=== PATIENT | male | born 1940 | race Caucasian/White ===

== ENCOUNTER 2022-08-13 07:57 | Emergency (ER) | payer MEDICARE, BC, SELFPAY ==
[2022-08-13 08:06] VITALS: BP 135/73; PULSE 97; RESP 18; TEMP 37; O2SAT 97; BMI 28.6
[2022-08-13 08:52] VITALS: BP 134/77; PULSE 94; O2SAT 92
--- NOTE | 2022-08-13 08:56 | ED.GENADULT ---
HPI - General Adult General Chief complaint: Unspecified Complaint, Adult Stated complaint: poss heart attack,shakes, numbness in left arm Time Seen by Provider: 08/13/22 07:59 History of Present Illness HPI narrative: 81-year-old man presenting to the emergency department with concern of left arm ache which has now resolved. He last night had a diarrheal bowel movement. This morning started to feel some shakes, chilled. Apparently no fever has been measured. Thought he was going to ?get sick? this morning and went to the bathroom. He has not actually vomited. No abdominal pain. Started subsequently to have an ache in his left arm that progressed from her shoulder all the way down his forearm which is now resolved and then thought maybe he should get this checked out. Does have a cardiac history with 1 stent about 20 years ago. He also has a pacemaker placed. The other concerning thing this morning was coming up the stairs just felt unusually fatigued or short of breath. Note him to be rather congested nasopharyngeal this is on top of a nasal septum that goes in 9 different directions and ?can not breathe for sour apples?. Has apparently decided not to intervene with this with ENT. Does play [employer]. Not nauseated now. No ill exposures noted. Related Data Home Medications Medication Instructions Recorded Confirmed amlodipine 5 mg tablet mg 08/13/22 atorvastatin 20 mg tablet mg 08/13/22 ipratropium bromide 21 mcg (0.03 intranasal 08/13/22 %) nasal spray metoprolol succinate 50 mg mg PO 08/13/22 tablet,extended release 24 hr pantoprazole 40 mg tablet,delayed mg PO 08/13/22 release rivaroxaban 20 mg tablet (Xarelto) mg 08/13/22 simvastatin 20 mg tablet mg 08/13/22 valsartan 80 tab 08/13/22 mg-hydrochlorothiazide 12.5 mg tablet Allergies Allergy/AdvReac Type Severity Reaction Status Date / Time Antihistamines - Alkylamine Allergy Verified 08/13/22 08:11 Review of Systems Status of ROS: Reports: 10 or more systems reviewed and unremarkable except as noted in History and below [facility] Social History Smoking Status: Unknown if ever smoked Exam Narrative: Exam Narrative: Pleasant. NAD. Does sound congested the nasopharynx. Cranial nerves 2-12 to be intact. Moving all extremities without difficulty. Lower extremities are without edema. He is well-perfused. Breathing easily. Lungs appear to be clear. Heart is in an elevated rate but regular rhythm. Abdomen is protuberant soft. Tympanitic across the upper abdomen. Nontender/no peritoneal signs with normoactive bowel sounds. Oropharynx is a little dry. Is breathing easily. Speaking easily. Hearing aids. I am not able to reproduce pain to palpation Const: Vital Signs, click to edit/add: Vital Signs - 24 hr 08/13/22 08:06 08/13/22 08:52 08/13/22 10:00 Temperature 98.6 F Pulse Rate [Right Pulse Oximeter] 97 94 93 Respiratory Rate 18 18 Blood Pressure [Ri ght Upper Arm] 135/73 134/77 125/80 Pulse Oximetry 97 92 93 Oxygen Delivery Me thod Room Air Room Air 08/13/22 10:30 Temperature Pulse Rate [Right Pulse Oximeter] 97 Respiratory Rate 18 Blood Pressure [Ri ght Upper Arm] 137/70 Pulse Oximetry 95 Oxygen Delivery Me thod Room Air Documenting provider has reviewed patient's vital signs: yes Course Vital Signs Vital signs: Initial Vital Signs Temperature 98.6 F 08/13/22 08:06 Temperature Source Temporal Artery Scan 08/13/22 08:06 Pulse Rate 97 08/13/22 08:06 Respiratory Rate 18 08/13/22 08:06 Blood Pressure 135/73 08/13/22 08:06 Blood Pressure Mean 93 08/13/22 08:06 Blood Pressure Position Sitting 08/13/22 08:06 Pulse Oximetry 97 08/13/22 08:06 Oxygen Delivery Method 08/13/22 08:06 Vital Signs Temperature 98.6 F 08/13/22 08:06 Pulse Rate 97 08/13/22 08:06 Respiratory Rate 18 08/13/22 08:06 Blood Pressure 135/73 08/13/22 08:06 Pulse Oximetry 97 08/13/22 08:06 Oxygen Delivery Method 08/13/22 08:06 Temperature 98.6 F 08/13/22 08:06 Pulse Rate 97 08/13/22 10:30 Respiratory Rate 18 08/13/22 10:30 Blood Pressure 137/70 08/13/22 10:30 Pulse Oximetry 95 08/13/22 10:30 Oxygen Delivery Method 08/13/22 10:30 Medical Decision Making MDM Narrative Medical decision making narrative: Looks to have now vomited here in the emergency department. Will be ordered for Zofran. L normal saline. Concern certainly have cardiovascular issue though superimposed with gastrointestinal illness I think. Unclear if the shaking that he was describing was frankly rigors. Blood cultures will be obtained. Overall feels better. No recurrence of symptoms. Tolerated abril karissa. Labs are reassuring with repeated negative troponins. This was done at 2 hour beth See patient discharge information Lab Data Lab results reviewed: Yes I reviewed the patient's lab results Labs: Lab Results 08/13/22 08/13/22 08/13/22 Range/Units 08:55 09:30 09:30 WBC 9.77 (4.50-11.00) K/uL RBC 5.10 (4.30-5.90) m/uL Hgb 15.2 (13.5-17.5) gm/dL Hct 45.3 (37.0-53.0) % MCV 89 (80-100) fL MCH 30 (26-34) pg MCHC 34 (32-36) gm/dL RDW Coeff of [place] 13.2 (11.5-15.5) % Plt Count 227 (140-440) K/uL Neut % (Auto) 93.7 H (42.0-72.0) % Lymph % (Auto) 1.5 L (20-44) % [place] % (Auto) 4.0 (0.0-11.0) % Eos % (Auto) 0.6 (0.0-7.0) % Baso % (Auto) 0.1 (0.0-3.0) % Neut # (Auto) 9.20 H (1.7-7.0) K/uL Lymph # (Auto) 0.10 L (0.90-2.90) K/uL [place] # (Auto) 0.40 (0.00-0.90) K/UL Eos # (Auto) 0.06 (0.00-0.50) K/uL Baso # (Auto) 0.01 (0.00-0.30) K/uL Sodium Cancelled Potassium Cancelled Chloride Cancelled Carbon Dioxide Cancelled BUN Cancelled Creatinine Cancelled Estimated Creat Clear Cancelled Estimated GFR Cancelled Glucose Cancelled Calcium Cancelled Magnesium (1.5-2.6) mg/dL Total Bilirubin (0.1-1.5) mg/dL Direct Bilirubin (0.0-0.5) mg/dL AST (12-35) U/L ALT (4-50) U/L Alkaline Phosphatase (40-150) U/L Troponin I (0.01-0.04) ng/mL C-Reactive Protein NT-Pro-B Natriuret Pep pg/mL Total Protein (6.0-8.3) g/dL Albumin (3.3-5.0) g/dL Urine Color (Yellow) Urine Appearance (Clear) Urine pH (5.0-8.5) Ur Specific [place] (1.000-1.030) Urine Protein (Negative) Urine Glucose (UA) (Negative) Urine Ketones (Negative) Urine Blood (Negative) Urine Nitrite (Negative) Urine Bilirubin (Negative) Urine Urobilinogen (0.2-1.0) Ur Leukocyte Esterase (Negative) Urine RBC (0-2) Urine WBC (0-5) Ur Squamous Epith Cells (None-Few) Urine Bacteria (None) SARS-CoV-2 (PCR) (Negative) Influenza Type A (PCR) (Negative) Influenza Type B (PCR) (Negative) RSV (PCR) (Negative) POC Troponin I 0.01 (0.01-0.04) ng/ml 08/13/22 08/13/22 08/13/22 Range/Units 09:30 09:30 09:30 WBC (4.50-11.00) K/uL RBC (4.30-5.90) m/uL Hgb (13.5-17.5) gm/dL Hct (37.0-53.0) % MCV (80-100) fL MCH (26-34) pg MCHC (32-36) gm/dL RDW Coeff of [place] (11.5-15.5) % Plt Count (140-440) K/uL Neut % (Auto) (42.0-72.0) % Lymph % (Auto) (20-44) % [place] % (Auto) (0.0-11.0) % Eos % (Auto) (0.0-7.0) % Baso % (Auto) (0.0-3.0) % Neut # (Auto) (1.7-7.0) K/uL Lymph # (Auto) (0.90-2.90) K/uL [place] # (Auto) (0.00-0.90) K/UL Eos # (Auto) (0.00-0.50) K/uL Baso # (Auto) (0.00-0.30) K/uL Sodium 137 Potassium 3.9 Chloride 106 Carbon Dioxide 28 BUN 24 Creatinine 0.8 Estimated Creat Clear 63.59 Estimated GFR 89 Glucose 143 H Calcium 8.7 Magnesium 1.7 (1.5-2.6) mg/dL Total Bilirubin 1.0 (0.1-1.5) mg/dL Direct Bilirubin 0.1 (0.0-0.5) mg/dL AST 33 (12-35) U/L ALT 30 (4-50) U/L Alkaline Phosphatase 112 (40-150) U/L Troponin I < 0.01 L (0.01-0.04) ng/mL C-Reactive Protein Cancelled 0.8 NT-Pro-B Natriuret Pep 758 pg/mL Total Protein 6.6 (6.0-8.3) g/dL Albumin 4.0 (3.3-5.0) g/dL Urine Color (Yellow) Urine Appearance (Clear) Urine pH (5.0-8.5) Ur Specific [place] (1.000-1.030) Urine Protein (Negative) Urine Glucose (UA) (Negative) Urine Ketones (Negative) Urine Blood (Negative) Urine Nitrite (Negative) Urine Bilirubin (Negative) Urine Urobilinogen (0.2-1.0) Ur Leukocyte Esterase (Negative) Urine RBC (0-2) Urine WBC (0-5) Ur Squamous Epith Cells (None-Few) Urine Bacteria (None) SARS-CoV-2 (PCR) Negative SARS-CoV-2 (Negative) Influenza Type A (PCR) Negative PCR FLU A (Negative) Influenza Type B (PCR) Negative PCR FLU B (Negative) RSV (PCR) Negative PCR RSV (Negative) POC Troponin I (0.01-0.04) ng/ml 08/13/22 08/13/22 Range/Units 10:51 11:01 WBC (4.50-11.00) K/uL RBC (4.30-5.90) m/uL Hgb (13.5-17.5) gm/dL Hct (37.0-53.0) % MCV (80-100) fL MCH (26-34) pg MCHC (32-36) gm/dL RDW Coeff of [place] (11.5-15.5) % Plt Count (140-440) K/uL Neut % (Auto) (42.0-72.0) % Lymph % (Auto) (20-44) % [place] % (Auto) (0.0-11.0) % Eos % (Auto) (0.0-7.0) % Baso % (Auto) (0.0-3.0) % Neut # (Auto) (1.7-7.0) K/uL Lymph # (Auto) (0.90-2.90) K/uL [place] # (Auto) (0.00-0.90) K/UL Eos # (Auto) (0.00-0.50) K/uL Baso # (Auto) (0.00-0.30) K/uL Sodium Potassium Chloride Carbon Dioxide BUN Creatinine Estimated Creat Clear Estimated GFR Glucose Calcium Magnesium (1.5-2.6) mg/dL Total Bilirubin (0.1-1.5) mg/dL Direct Bilirubin (0.0-0.5) mg/dL AST (12-35) U/L ALT (4-50) U/L Alkaline Phosphatase (40-150) U/L Troponin I (0.01-0.04) ng/mL C-Reactive Protein NT-Pro-B Natriuret Pep pg/mL Total Protein (6.0-8.3) g/dL Albumin (3.3-5.0) g/dL Urine Color Yellow (Yellow) Urine Appearance Clear (Clear) Urine pH 6.5 (5.0-8.5) Ur Specific [place] 1.020 (1.000-1.030) Urine Protein Negative (Negative) Urine Glucose (UA) Negative (Negative) Urine Ketones Negative (Negative) Urine Blood Negative (Negative) Urine Nitrite Negative (Negative) Urine Bilirubin Negative (Negative) Urine Urobilinogen 0.2 (0.2-1.0) Ur Leukocyte Esterase Negative (Negative) Urine RBC 0-2 (0-2) Urine WBC 0-2 (0-5) Ur Squamous Epith Cells None (None-Few) Urine Bacteria None (None) SARS-CoV-2 (PCR) (Negative) Influenza Type A (PCR) (Negative) Influenza Type B (PCR) (Negative) RSV (PCR) (Negative) POC Troponin I 0.01 (0.01-0.04) ng/ml ECG Data Attestation: I personally reviewed and interpreted this ECG as follows: (Ventricular paced rhythm) Discharge Plan Discharge Clinical Impression: Arm pain, Contusion of hip, Gastroenteritis Patient Disposition: Home w/ Parent or Adult Condition: Improved Additional Instructions: Focus on hydration. Slow advance of diet over the next 24-36 hours. Diluted juices, soup broths, abril karissa per your preference, advancing to thicker soups. Rice. [place]. Crackers. Maybe even smoothies? Return for marked increase in abdominal pain, intractable vomiting or diarrhea, persistent chest pain, worsening shortness of breath. As long as no blood in stool or fever you might take loperamide for diarrhea if necessary. Otherwise Zofran from [facility] for nausea/vomiting. Follow-up with cardiology in a week as planned. Prescriptions: No Action atorvastatin 20 mg tablet metoprolol succinate 50 mg tablet extended release 24 hr PO amlodipine 5 mg tablet valsartan-hydrochlorothiazide 80-12.5 mg tablet Label Comments: TAKE 1 TABLET BY MOUTH EVERY DAY pantoprazole 40 mg tablet,delayed release (DR/EC) PO simvastatin 20 mg tablet Label Comments: TAKE 1 TABLET BY MOUTH AT BEDTIME ipratropium bromide 21 mcg (0.03 %) spray,non-aerosol INTRANASAL Xarelto 20 mg tablet Follow Up/Referrals: Fabiola Rendon PA [Primary Care Provider] - Stand Alone Forms: [facility] Info Instructions
[2022-08-13] MEDS: 0.9 % SODIUM CHLORIDE 1000 ml 1,000 ML IV (09:54)
[2022-08-13 09:55] LABS: Troponin, Point-of-Care* 0.01 ng/ml (0.01-0.04)
[2022-08-13 09:56] LABS: Basophils Absolute Auto 0.01 K/uL (0.00-0.30); Basophils Percent Auto 0.1 % (0.0-3.0); Eosinophils Absolute Auto 0.06 K/uL (0.00-0.50); Eosinophils Percent Auto 0.6 % (0.0-7.0); Hematocrit 45.3 % (37.0-53.0); Hemoglobin* 15.2 gm/dL (13.5-17.5); Immature Granulocytes Abs Auto 0.01 K/uL (0.00-0.30); Immature Granulocytes Pct Auto 0.1 %; Lymphocytes Percent Auto 1.5 % (20-44); Mean Corpuscular HGB Conc 34 gm/dL (32-36); Mean Corpuscular Hemoglobin 30 pg (26-34); Mean Corpuscular Volume 89 fL (80-100); Neutrophils Percent Auto 93.7 % (42.0-72.0); Platelet Count* 227 K/uL (140-440); RDW Coefficient of Variation % 13.2 % (11.5-15.5); White Blood Count* 9.77 K/uL (4.50-11.00)
--- NOTE | 2022-08-13 09:57 | ED.NURSE ---
vomited large amout of clear yellow fluid. states feels improved after vomiting
[2022-08-13 10:00] VITALS: BP 125/80; PULSE 93; RESP 18; O2SAT 93
[2022-08-13 10:00] LABS: Slide Review Reflex No
[2022-08-13 10:14] LABS: Chloride* 106 mmol/L (96-114); Sodium* 137 mmol/L (135-149)
[2022-08-13 10:15] LABS: Potassium* 3.9 mmol/L (3.6-5.1)
[2022-08-13 10:17] LABS: Aspartate Amino Transferase* 33 U/L (12-35); Bilirubin Direct* 0.1 mg/dL (0.0-0.5); Carbon Dioxide* 28 mmol/L (20-32); Creatinine* 0.8 mg/dL (0.5-1.5); Est. Creatinine Clearance* 63.59; Estimated Glomerular Filt Rate 89 ml/min; Total Protein* 6.6 g/dL (6.0-8.3)
[2022-08-13 10:18] LABS: Alanine Aminotransferase* 30 U/L (4-50); Alkaline Phosphatase* 112 U/L (40-150); Blood Urea Nitrogen* 24 mg/dL (7-30); Calcium* 8.7 mg/dL (8.4-10.6); Glucose* 143 mg/dL (60-115); Magnesium* 1.7 mg/dL (1.5-2.6)
[2022-08-13 10:20] LABS: C Reactive Protein* 0.8 mg/dL (0.5-1.0)
[2022-08-13 10:30] VITALS: BP 137/70; PULSE 97; RESP 18; O2SAT 95
[2022-08-13 10:31] LABS: NT Pro B Type NatriureticPept* 758 pg/mL; Troponin I* < 0.01 ng/mL (0.01-0.04)
[2022-08-13 10:39] LABS: PCR FLU A Negative PCR FLU A (Negative); PCR FLU B Negative PCR FLU B (Negative); PCR RSV Negative PCR RSV (Negative)
[2022-08-13 10:48] LABS: SARS PCR* Negative SARS-CoV-2 (Negative)
[2022-08-13 10:57] LABS: Appearance Urine Clear (Clear); Bilirubin Urine Negative (Negative); Blood Urine Negative (Negative); Color Urine Yellow (Yellow); Glucose Urine Negative (Negative); Ketones Urine Negative (Negative); Leukocyte Esterase Urine Negative (Negative); Nitrite Urine Negative (Negative); Protein Urine Negative (Negative); Urobilinogen Urine 0.2 (0.2-1.0); pH Urine 6.5 (5.0-8.5)
[2022-08-13 11:11] LABS: RBC Urine 0-2 (0-2)
[2022-08-13 11:12] LABS: WBC Urine 0-2 (0-5)
[2022-08-13 11:54] LABS: Troponin, Point-of-Care* 0.01 ng/ml (0.01-0.04)
== END 2022-08-13 12:30 | disposition home or self-care (01) ==
PROVIDERS: Emergency Provider Family Medicine; PCP Physician Assistant
DX: M79.602 Pain in left arm (principal); K52.9 Noninfective gastroenteritis and colitis, unspecified
CPT/HCPCS: 36415; 80048; 80076; 81001; 83735; 83880; 84484; 85025; 86140; 87040; 87502; 87634; 87635; 93005; 99283; 99284; J7030

== ENCOUNTER 2023-03-18 14:00 | Outpatient (RCR) | payer MEDICARE, BC, SELFPAY | END 2023-03-30 11:09 | disposition home or self-care (01) | PROVIDERS: PCP Physician Assistant; Visit Provider Family Medicine | DX: M54.42 Lumbago with sciatica, left side (principal); Z51.89 Encounter for other specified aftercare | CPT/HCPCS: 97110; 97140; 97161 ==

== ENCOUNTER 2024-04-23 20:03 | Emergency (ER) | payer MEDICARE, BC, SELFPAY ==
[2024-04-23 20:13] VITALS: BP 169/91; PULSE 86; RESP 18; TEMP 36.5; O2SAT 97; BMI 29.3
[2024-04-23 20:22] VITALS: BP 164/88
--- NOTE | 2024-04-23 20:52 | ED.CHESTPAIN ---
HPI - Chest Pain General Chief Complaint: Chest Pain Stated Complaint: chest pain, SOB Time Seen by Provider: 04/23/24 20:20 History of Present Illness HPI narrative: This 83-year-old male comes in reporting some episodes of chest discomfort that he states is rather mild. He states that it happens randomly sometimes at rest and sometimes while he is out walking. He does not report any lightheadedness, nausea, vomiting, or diaphoresis. He does reports some feeling of shortness of breath with exertion. He does have a pacemaker and has a remote history of a stent placed. He states that his is currently at the [facility] because of cancer and has some increased stress + increased ambulating because of the size of that facility. He does not report reproducible chest pain with taking a deep breath or pressing in a certain area. Also his activity level or exertional level is not consistently reproducing chest symptoms. Related Data Home Medications ?Medication ?Instructions ?Recorded ?Confirmed amlodipine 5 mg tablet mg 08/13/22 11/30/23 atorvastatin 20 mg tablet mg 08/13/22 11/30/23 ipratropium bromide 21 mcg (0.03 intranasal 08/13/22 11/30/23 %) nasal spray metoprolol succinate 50 mg mg PO 08/13/22 11/30/23 tablet,extended release 24 hr pantoprazole 40 mg tablet,delayed mg PO 08/13/22 11/30/23 release rivaroxaban 20 mg tablet (Xarelto) mg 08/13/22 11/30/23 simvastatin 20 mg tablet mg 08/13/22 11/30/23 valsartan 80 tab 08/13/22 11/30/23 mg-hydrochlorothiazide 12.5 mg tablet silodosin 8 mg capsule 8 mg PO DAILY 11/30/23 11/30/23 Allergies Allergy/AdvReac Type Severity Reaction Status Date / Time Antihistamines - Alkylamine Allergy Verified 11/30/23 18:48 Review of Systems Status of ROS Reports: 10 or more systems reviewed and unremarkable except as noted in History and below Narrative Constitutional: No fevers, no weight gain or loss. Eyes: No discharge. No vision changes. HENT: No congestion, no sore throat, no ear pain. Cardiovascular: No palpitations. Respiratory: No wheezes, no cough. Gastrointestinal: No abdominal pain, no vomiting, no diarrhea. Genitourinary: No dysuria, no hematuria. Musculoskeletal: Normal range of motion. Skin: No rashes, no pruritis. Neurological: No dizziness, weakness, sensory change, speech change. Endo/Heme/Allergies: No bruising or bleeding. No polydipsia. Pysch: no suicidality, no anxiety, no insomnia. All other systems reviewed and are negative. [facility] Social History Smoking Status: Unknown if ever smoked Non-prescribed substance use: denies use Exam Narrative Exam Narrative: Constitutional: Well-developed, well-nourished, no acute distress. HEENT: Normocephalic, atraumatic. Neck: Normal range of motion. Nontender. Supple. Heart: Regular. No murmurs. Normal rate. Intact distal pulses. Lungs: Clear to auscultation. No chest discomfort. No wheezes, rhonchi, or rales. Abdomen: Normal bowel sounds. Nontender. No rebound tenderness. Genitalia: Deferred. Back: No midline tenderness. Normal range of motion. Extremities: Normal range of motion. No injury. Skin: Intact. No rash. Warm. No erythema or pallor. Neurologic: No altered sensation. No weakness. Alert and oriented. Psychiatric: No suicidality. No anxiety or depression. No insomnia. Nursing notes and vitals signs are reviewed. Const Vital Signs, click to edit/add: Vital Signs - 24 hr 04/23/24 20:13 Temperature 97.7 F Pulse Rate [Pulse Oximeter] 86 Respiratory Rate 18 Blood Pressure [Right Upper Arm] 169/91 H Pulse Oximetry 97 Oxygen Delivery Method Room Air Course Vital Signs Vital signs: Initial Vital Signs Temperature 97.7 F 04/23/24 20:13 Temperature Source Temporal Artery Scan 04/23/24 20:13 Pulse Rate 86 04/23/24 20:13 Pulse Rhythm Regular 04/23/24 20:13 Respiratory Rate 18 04/23/24 20:13 Blood Pressure 169/91 H 04/23/24 20:13 Blood Pressure Mean 117 H 04/23/24 20:13 Blood Pressure Position Sitting 04/23/24 20:13 Pulse Oximetry 97 04/23/24 20:13 Oxygen Delivery Method Room Air 04/23/24 20:13 Vital Signs Temperature 97.7 F 04/23/24 20:13 Pulse Rate 86 04/23/24 20:13 Respiratory Rate 18 04/23/24 20:13 Blood Pressure 169/91 H 04/23/24 20:13 Pulse Oximetry 97 04/23/24 20:13 Oxygen Delivery Method Room Air 04/23/24 20:13 Temperature 97.7 F 04/23/24 20:13 Pulse Rate 86 04/23/24 20:13 Respiratory Rate 18 04/23/24 20:13 Blood Pressure 169/91 H 04/23/24 20:13 Pulse Oximetry 97 04/23/24 20:13 Oxygen Delivery Method Room Air 04/23/24 20:13 MDM - Chest Pain MDM Narrative Medical decision making narrative: This 83-year-old male comes in reporting some randomly occurring mild symptoms of chest discomfort and some shortness of breath. He states that he is able to ambulate regularly about a mi with his dog and does not typically have symptoms. He arrives here with normal vital signs and has normal EKG with a paced rhythm. Labs are acquired and these returned with reassuring results. In particular his troponin is in normal range. This patient's symptoms are not suspicious for a cardiac etiology. He was reassured with these results and feels okay to return home to continue his current plans. Lab Data Labs: Lab Results 04/23/24 04/23/24 Range/Units 20:52 21:00 WBC 6.22 (4.50-11.00) K/uL RBC 4.74 (4.30-5.90) m/uL Hgb 14.2 (13.5-17.5) gm/dL Hct 42.1 (37.0-53.0) % MCV 89 (80-100) fL MCH 30 (26-34) pg MCHC 34 (32-36) gm/dL RDW Coeff of [place] 12.8 (11.5-15.5) % Plt Count 171 (140-440) K/uL Neut % (Auto) 70.0 (42.0-72.0) % Lymph % (Auto) 17.4 L (20-44) % [place] % (Auto) 9.3 (0.0-11.0) % Eos % (Auto) 2.3 (0.0-7.0) % Baso % (Auto) 0.8 (0.0-3.0) % Neut # (Auto) 4.36 (1.7-7.0) K/uL Lymph # (Auto) 1.10 (0.90-2.90) K/uL [place] # (Auto) 0.60 (0.00-0.90) K/UL Eos # (Auto) 0.14 (0.00-0.50) K/uL Baso # (Auto) 0.05 (0.00-0.30) K/uL Abs Immat Gran (auto) 0.01 (0.00-0.30) K/uL Imm/Tot Granulo (auto) 0.2 % Sodium 135 (135-149) mmol/L Potassium 3.7 (3.6-5.1) mmol/L Chloride 102 (96-114) mmol/L Carbon Dioxide 25 (20-32) mmol/L Anion Gap 8 (7-15) mEq/L BUN 24 (7-30) mg/dL Creatinine 0.8 (0.5-1.5) mg/dL Estimated Creat Clear 59.61 Estimated GFR 88 ml/min Glucose 171 H (60-115) mg/dL Calcium 8.9 (8.4-10.6) mg/dL POC Troponin I 0.02 (0.01-0.04) ng/ml ECG Data Attestation: I personally reviewed and interpreted this ECG as follows: Interpretation: Paced rhythm. Rate is 80 beats per minute. There are no specific ST or T-wave abnormalities. Discharge Plan Discharge Clinical Impression: Atypical chest pain Additional Instructions: Continue current plans. Follow up with MD return if symptoms are persistent or worsening. Consider stress testing also. Prescriptions: No Action silodosin 8 mg capsule 8 mg PO DAILY atorvastatin 20 mg tablet metoprolol succinate 50 mg tablet extended release 24 hr PO amlodipine 5 mg tablet valsartan-hydrochlorothiazide 80-12.5 mg tablet Patient Comments: TAKE 1 TABLET BY MOUTH EVERY DAY pantoprazole 40 mg tablet,delayed release (DR/EC) PO simvastatin 20 mg tablet Patient Comments: TAKE 1 TABLET BY MOUTH AT BEDTIME ipratropium bromide 21 mcg (0.03 %) spray,non-aerosol INTRANASAL Xarelto 20 mg tablet Follow Up/Referrals: Fabiola Rendon PA [Referring] - Stand Alone Forms: [facility] Info Instructions
--- OUTSIDE RECORDS SUMMARY | 2024-04-23 21:00 | XMS_ITS | Clinical Summary ---
Author Organization [employer] [facility] Address [place], [place] [address] Care Team Providers Care Custodial Worker Name Role Phone Nasra, Yael Hartmann DO Primary Care Provider [phone] Allergies Active Allergy Reactions Criticality Noted Date Comments Dexbrompheniramine-Pseudoeph ed Sleep Disturbances 08/23/2017 Antihistamines - Alkylamine *Unknown 08/14/19 23 Dust Mites Other - Describe In Comment Field 08/30/2017 Pollen Extracts Runny Nose 11/01/2017 Medications Medication Sig Dispensed Refills Start Date End Date Status multivitamin (MVI) tablet Take 1 tablet by mouth once daily. 0 08/23/2017 Active fluticasone (50 mcg per actuation) nasal solution (FLONASE) Inhale 1 Hines in the nostril(s) once daily. 1 Bottle 03/13/2018 Active cod liver oil cap Take 1 capsule by mouth once daily. Active cyanocobalamin (VITAMIN B12) 500 mcg tablet Take 500 mcg by mouth once daily. Active ipratropium (ATROVENT NASAL) 21 mcg (0.03 %) nasal sprayIndications: Rhinorrhea Inhale 1 Hines into affected nostril(s) two times daily. 30 mL 11 10/12/2022 Active aspirin (ECOTRIN) 81 mg enteric coated tablet Take 81 mg by mouth once daily with a meal. Active nitroglycerin (NITROSTAT) 0.4 mg sublingual tabletIndications :ALANIZ (dyspnea on exertion) Place 1 Tablet (0.4 mg) under the tongue every 5 minutes if needed for Chest Pain (If requiring a 3rd tab, please call 911). 25 Tablet 1 08/02/2023 Active finasteride (PROSCAR) 5 mg tablet Take 5 mg by mouth once daily in the morning. 10/06/2023 Active amLODIPine (NORVASC) 5 mg tabletIndications :HTN (hypertension) Take 1 Tablet (5 mg) by mouth once daily. 90 Tablet 3 11/03/2023 Active albuterol HFA (PRO-AIR; VENTOLIN; PROVENTIL) 90 mcg/actuation inhalerIndication s:Bronchospasm Inhale 2 Puffs by mouth every 6 hours if needed for Shortness Of Breath. 18 g 1 11/03/2023 Active valsartan-hydroch lorothiazide, 80-12.5 mg, (DIOVAN HCT) 80-12.5 mg tabletIndications :HTN (hypertension) Take 1 Tablet by mouth once daily. 90 Tablet 2 12/05/2023 Active ipratropium (ATROVENT NASAL) 42 mcg (0.06 %) nasal sprayIndications: Pollen allergy,PND (post-nasal drip) Inhale 2 Sprays into affected nostril(s) three times daily. 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 90 Tablet 3 01/25/2024 Active silodosin (RAPAFLO) 8 mg cap capsule Take 8 mg by mouth once daily. 01/29/2024 Active esomeprazole (NEXIUM) 40 mg capsuleIndication s:Chronic GERD Take 1 Capsule (40 mg) by mouth once daily before a meal. 90 Capsule 02/09/2024 Active pantoprazole (PROTONIX) 40 mg delayed-release tabletIndications :Chronic GERD Take 1 Tablet (40 mg) by mouth once daily. 90 Tablet 3 02/22/2024 Active metoprolol succinate (TOPROL XL) 50 mg sustained-release tabletIndications :Hypertension,Cor onary artery disease, unspecified vessel or lesion type, unspecified whether angina present, unspecified whether tuscarora or transplanted heart Take 1 Tablet (50 mg) by mouth once daily. Reminder: You are due for your annual Cardiology appointment in July 2024. Please call [facility] two months prior at [phone] to schedule. 90 Tablet 1 04/02/2024 Active metoprolol succinate (TOPROL XL) 50 mg sustained-release tabletIndications :Hypertension,Cor onary artery disease, unspecified vessel or lesion type, unspecified whether angina present, unspecified whether tuscarora or transplanted heart Take 1 Tablet (50 mg) by mouth once daily. 90 Tablet 3 10/02/2023 04/02/20 24 Discontinued Active Problems Patient Care Coordination No te Formatting of this note migh t be different from the original. HF/Structural/Prevention Research Eligibility Review Date: 07/30/19 Upcoming Visit Location: Outreach Age: 78 y.o. 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 09/07/2023 ALANIZ (dyspnea on exertion) 04/13/2022 Chronic obstructive pulmonary disease 09/18/2021 Paroxysmal atrial fibrillation 03/17/2021 Cardiac pacemaker 09/05/2020 HTN (hypertension) 09/05/2020 Acute external jugular vein thrombosis 9 Second degree AV block, Mobitz type II 9 Coronary artery disease involving tuscarora coronar y artery 09/05/2018 Intermittent second degree atrioventricular bloc k 09/05/2018 Resolved Problems Problem Noted Date Diagnosed Date Resolved Date Type 2 diabetes mellitus wit hout complication, without long-term current use of insulin 09/18/2021 09/18/2021 Subclavian vein thromboembolism, acute, left 9 06/20/2019 Anticoagulation monitoring, INR range 2-3 10/27/2018 04/25/2019 Coronary artery disease 09/05/2018 05/0 11/2018 Encounters Date Type Department Care Team Description 04/23/2024 4:15 PM REAL ESTATE CLOSER Ancillary Procedure [facility] [address] [place] [address] Arrived 04/22/2024 Travel 04/19/2024 Travel 04/16/2024 11:15 AM REAL ESTATE CLOSER Orders Only [facility] [address] [place] [address] Lab, [facility] 04/16/2024 Travel 04/16/2024 Nurse Triage [facility] [address] [place] [address] Yael Hammonds, DO Chest Pain; Breathing Problem; Sinus Problem 04/04/2024 Orders Only [address] [address] Yael Hammonds, Lab 04/02/[address] [address] Terrance Givens MD Refill Request (Metoprolol Succinate) 03/29/2024 Nurse/Clinic Staff Only [address] [address] Yael Hammonds, DO Immunization/Inject ion 03/20/2024 Nurse Triage [address] [address] Yael Hammonds, DO Foot Laceration 03/09/[address] [address] Manpreet Nino MD Results 03/07/2024 3:00 PM CDT Ancillary Procedure [address] [address] 03/07/2024 Travel 03/01/[address] [address] Manpreet Nino MD Questions 02/21/[address] [address] Manpreet Nino MD fyi (Congestion in Throat) 02/21/[address] [address] Yael Hammonds, Medication Management (esomeprazole (NEXIUM) 40 mg capsule/) 02/09/2024 2:25 PM CDT Office Visit [facility] [address] [place] [address] Yael Hammonds, Lump (left ear, somewhat tender when laying on left side); Elbow Injury (bumped right elbow several months ago, nail making machine tender when applying pressure) 02/09/2024 Travel 01/23/2024 Refill [facility] [address] [place] [address] Yael Hammonds, Refill Request (Xarelto) from Last 3 Months Immunizations Name Administration Dates Next Due COVID-19 VACCINE SPIKEVAX (M ODERNA 50MCG/0.5ML) 12YO+ PFS 03/29/2024 COVID-19 vaccine (Pfizer-Bio NTech 30mcg/0.3mL) 12YO+ BIVALENT PF, MDV 04/26/2022 COVID-19 vaccine (Pfizer-Bio NTech 30mcg/0.3mL) 12YO+ SAWYER-SUCROSE PF, MDV 10/05/2021 COVID-19 vaccine (Pfizer-Bio NTech 30mcg/0.3mL) PF, MDV 03/17/2021,08/06/2020,07/16/2020 Influenza Virus, Unspecified 05/04/2016, 03/28/2015,04/12/2014,2012,03/31/2012,03/01/2011 Influenza, High-dose Quadriv alent Inactivated 04/09/2022 Influenza, Inactivated AIIV4 (Age 65+ Years) Preserv Free 03/14/2023,02/12/2021 Influenza, Inactivated IIV3 (Age 65+ Years) Preserv Free 02/21/2018 Pneumococcal Poly,23-Valent (Pneumovax) 07/14/2007 Pneumococcal conj 13-Valent (Prevnar 13) 05/04/2016 Td, Preservative Free (age > = 7 Years) 09/27/2003,05/20/1997 Tdap 10/23/2013 Zoster (Shingrix-RZV, recombinant) 03/31/2020, Family History Medical History Relation Name Comments Coronary artery disease Brother Hearing loss Brother Hypertension Brother Cancer-pancreatic Father Cancer-prostate Father Coronary artery disease Father Heart failure Mother Relation Name Status Comments Brother Father Mother Social History Tobacco Use Types Packs/Day Years Used Date Smoking Tobacco: Never Smokeless Tobacco: Never Tobacco Cessation:Counseling Given: Yes Alcohol Use Standard Drinks/Week Comments Yes 0 (1 standard drink = 0.6 oz pur e alcohol) 1 glass per month PHQ-2 Answer Date Recorded PHQ-2 TOTAL SCORE 1 11/03/2023 Social Connections Answer Date Recorded Do you often feel lonely or isolated from those around you? 0 09/07/2023 Financial Resource Strain Answer Date R ecorded Difficulty of Paying Living Expenses 3 09/07/2023 Difficulty of Paying Living Expenses Not on file 09/07/2023 Food Insecurity Answer Date Recorded Do you worry your food will run out before you are able to buy more? 1 09/07/2023 Transportation Needs Answer Date Record ed Does lack of transportation keep you from medica l appointments? 1 09/07/2023 Does lack of transportation keep you from work, meetings or getting things that you need? 1 09/07/2023 Housing Stability Answer Date Recorded What is your housing situation today? 1 09/07/2023 Sex and Gender Information Value Date Recorded Sex Assigned at Not on file Gender Identity Not on file Sexual Orientation Not on file Obstetrics History Last Filed Vital Signs Vital Sign Reading Time Taken Comments Blood Pressure 99/58 02/09/2024 2:33 PM CDT Pulse 76 02/09/2024 2:33 PM CDT Temperature 36.3 ??C (97.4 ??F) 01/20/2023 1 0:04 AM CDT Respiratory Rate 16 10/25/2022 3:30 PM CDT Oxygen Saturation 96% 12/12/2023 2:30 PM CDT Inhaled Oxygen Concentration - - Weight 96.1 kg (211 lb 12.8 oz) 02/09/2024 2:33 PM CDT Height 181 cm (5' 11.26) 11/03/2023 1:56 PM CDT Body Mass Index 29.32 11/03/2023 1:56 PM CDT Plan of Treatment Upcoming Encounters Date Type Department Care Team (Late st Contact Info) Description 04/24/2024 Cardiac Device Check [facility] [phone] 04/24/2024 11:30 AM REAL ESTATE CLOSER Appointment [facility] [address] [place] [address] Health Maintenance Due Date Last Done Comments RSV vaccine for adults or (1 - 1-dose 75+ series) 11/15/2015 Tetanus booster 10/24/2023 10/23/2013, 09/11, 05/20/1997 BMI (ht and wt on same day) for age 18+ 10/26/2023 10/25/2022, 10/12/2022, 05/13/2022, Additional history exists Influenza for age 65+ 02/12/2024 03/14/2023 , 04/09/2022, 02/12/2021, Additional history exists COVID-19 vaccine series ( season) 2024 03/29/2024, 03/15/2023, 04/26/2022, Additional history exists Depression screening for age 12+ 11/02/2024 11/03/2023, 10/14/2022, 10/12/2022, Additional history exists Medicare Wellness for age 65+ 11/03/2024, 10/12/2022, 09/18/2021, Additional history exists Tdap Completed 10/23/2013 Pneumococcal series for age 65+ Completed 6, 07/14/2007 Zoster (shingles) series for age 50+ Completed 03/31/2020, 12/21/2019 Medical Devices Implanted Type Area Cremator Device Identifier Shelf Expiration Date Model / Serial / Lot Sleeve Silcn 1.00i.D.X2.1mm Od [id number] [id number] [employer] - [id number] Implanted:Qty: 1 on 05/01/2020 by Quentin White MD at [facility] Left: Eye [employer] 08/01/2026 [id number] / / [id number] Silcn 0.75x3.5x125 [id number] - [id number] Implanted:Qty: 1 on 05/01/2020 by Quentin White MD at [facility] Left: Eye [employer] 05/01/2026 [id number] / / [id number] Procedures Procedure Name Priority Date/Time Associated Diagnosis Comments XR CHEST 2 VIEWS PA AND LATERAL Routine 04/23/2024 4:19 PM REAL ESTATE CLOSER Cardiac device in situ PSA (TOTAL) (QUEST) Routine 04/16/2024 1 1:18 AM REAL ESTATE CLOSER Prostate cancer (HC) CT SINUS WO Routine 03/07/2024 3:06 PM CDT Other chronic sinusitis from Last 3 Months Results * XR CHEST 2 VIEWS PA AND LATERAL (04/23/2024 4:19 PM REAL ESTATE CLOSER) Anatomical Region Laterality Modality CHEST, THORAX, Lung, HEART Compu chris Radiography 04/23/2024 4:34 PM REAL ESTATE CLOSER Impressions 04/23/2024 4:34 PM REAL ESTATE CLOSER 1. New mild cardiomegaly is noted. Dictated by Serg Herron MD @ 04/23/2024 4:34:09 PM Dictated by: Serg Herron MD @ 04/23/2024 16:34:13 (Electronically Signed) Narrative 04/23/2024 4:34 PM REAL ESTATE CLOSER For Patients: ??As a result of the Cures Act, medical imaging exams and procedure reports are released immediately into your electronic medical record. ??You may view this report before your referring provider. ??If you have questions, please contact your health care provider. INDICATION: Cardiac device in situ TECHNIQUE: Chest radiograph 2 views COMPARISON: 02/12/2021 FINDINGS: Mediastinum: The mediastinum is normal in appearance. New mild cardiomegaly is noted. There is a left cardiac pacer present with leads in the right atrium and right ventricle. Lung: Both lungs are unremarkable in appearance. No sign of pleural effusion seen. No pneumothorax is identified. Bone and Soft tissue: Unremarkable for age. Procedure Note Serg Herron MD - 04/23/2024 For Patients: As a result of the Cures Act, medical imagingexams and procedure reports are released immediately into your electronicmedical record. You may view this report before your referring provider.If you have questions, please contact your health care provider. INDICATION: Cardiac device in situ TECHNIQUE: Chest radiograph 2 views COMPARISON: 02/12/2021 FINDINGS: Mediastinum: The mediastinum is normal in appearance. New mildcardiomegaly is noted. There is a left cardiac pacer present with leads inthe right atrium and right ventricle. Lung: Both lungs are unremarkable in appearance. No sign of pleuraleffusion seen. No pneumothorax is identified. Bone and Soft tissue: Unremarkable for age. IMPRESSION: 1. New mild cardiomegaly is noted. Dictated by Serg Herron MD @ 04/23/2024 4:34:09 PM Dictated by: Serg Herron MD @ 04/23/2024 16:34:13 (Electronically Signed) Earle Maciel MD GENERAL IMAGI NG * PSA (TOTAL) (QUEST) (04/16/2024 11:18 AM REAL ESTATE CLOSER) PSA, TOTAL 1.81 < OR = 4.00 ng/mL [facility] Comment: The total PSA value from this assay system is standardized against the WHO standard. The test result will be approximately 20% lower when compared to the equimolar-standardized total PSA (Jung Darlene). Comparison of serial PSA results should be interpreted with this fact in mind. This test was performed using the Siemens chemiluminescent method. Values obtained from different assay methods cannot be used interchangeably. PSA levels, regardless of value, should not be interpreted as absolute evidence of the presence or absence of disease. Blood BLOOD SPECIMEN / Unknown 04/16/2024 11:18 AM REAL ESTATE CLOSER 04/16/2024 11:19 AM REAL ESTATE CLOSER Yael Hammonds DO SEND OUTS [employer] [facility] [address] [place] [address], [facility] [address] [place] [address] * CT SINUS WO (03/07/2024 3:06 PM CDT) Anatomical Region Laterality Modality SINUS Computed Tomogra phy 03/08/2024 8:32 AM CDT Impressions 03/08/2024 8:32 AM CDT 1. Mild scattered inflammatory mucosal thickening in the paranasal sinuses. No sinus obstruction or evidence of air-fluid level to suggest acute sinusitis. 2. Rightward deviation of the nasal septum with spur that contacts the right inferior turbinate. 3. Periapical lucencies adjacent to the bilateral maxillary 1st molar roots. 4. Cerumen in the external ear canals. 5. Thinning of the roof of the left superior semicircular canal raising the possibility of dehiscence. If there is concern, CT temporal bones could be obtained for further evaluation. Please note that all CT scans at this facility use dose modulation, iterative reconstruction, and/or weight-based dosing when appropriate to reduce radiation dose to as low as reasonably achievable. Dictated by Gilbert Schneider MD @ 03/08/2024 8:32:28 AM (Electronically Signed) Narrative 03/08/2024 8:32 AM CDT For Patients: ??As a result of the Cures Act, medical imaging exams and procedure reports are released immediately into your electronic medical record. ??You may view this report before your referring provider. ??If you have questions, please contact your health care provider. Indication: Sinusitis, chronic or recurrent Technique: CT of the paranasal sinuses without contrast. Coronal and sagittal reformatted images. Bone and soft tissue algorithms. Comparison: None. Findings: Frontal sinuses: Mild polypoid mucosal thickening in the frontal sinuses. Ethmoid air cells: Mild polypoid mucosal thickening in the left ethmoid sinus. Sphenoid sinuses: Trace mucosal thickening in the left sphenoid sinus. No optic canal or carotid canal dehiscence. Maxillary sinuses: The maxillary sinuses are clear. The osteomeatal units are clear. Periapical lucencies adjacent to the bilateral maxillary 1st molar roots. Nasal cavity: Rightward deviation of the nasal septum with septal spur that contacts the inferior turbinate. No paul bullosa. No paradoxical turbinates. Skullbase, maxilla, TMJ: No lytic or blastic osseous lesions. No periapical tooth lucencies. Mastoid air cells are clear. Mild cerumen in the external ear canals. TMJ degenerative changes. Thinning of the roof of the left superior semicircular canal raising the possibility of dehiscence. Orbital contents: There is a left scleral buckle. Imaged intracranial contents: Unremarkable Imaged soft tissues structures: Unremarkable Procedure Note Gilbert Schneider MD - 03/08/2024 For Patients: As a result of the Century Cures Act, medical imagingexams and procedure reports are released immediately into your electronicmedical record. You may view this report before your referring provider.If you have questions, please contact your health care provider. Indication: Sinusitis, chronic or recurrent Technique: CT of the paranasal sinuses without contrast. Coronal and sagittalreformatted images. Bone and soft tissue algorithms. Comparison: None. Findings: Frontal sinuses: Mild polypoid mucosal thickening in the frontal sinuses. Ethmoid air cells: Mild polypoid mucosal thickening in the left ethmoidsinus. Sphenoid sinuses: Trace mucosal thickening in the left sphenoid sinus. Nooptic canal or carotid canal dehiscence. Maxillary sinuses: The maxillary sinuses are clear. The osteomeatal unitsare clear. Periapical lucencies adjacent to the bilateral maxillary 1stmolar roots. Nasal cavity: Rightward deviation of the nasal septum with septal spurthat contacts the inferior turbinate. No paul bullosa. No paradoxicalturbinates. Skullbase, maxilla, TMJ: No lytic or blastic osseous lesions. Noperiapical tooth lucencies. Mastoid air cells are clear. Mild cerumen inthe external ear canals. TMJ degenerative changes. Thinning of the roof ofthe left superior semicircular canal raising the possibility ofdehiscence. Orbital contents: There is a left scleral buckle. Imaged intracranial contents: Unremarkable Imaged soft tissues structures: Unremarkable IMPRESSION: 1. Mild scattered inflammatory mucosal thickening in the paranasalsinuses. No sinus obstruction or evidence of air-fluid level to suggestacute sinusitis. 2. Rightward deviation of the nasal septum with spur that contacts theright inferior turbinate. 3. Periapical lucencies adjacent to the bilateral maxillary 1st molarroots. 4. Cerumen in the external ear canals. 5. Thinning of the roof of the left superior semicircular canal raisingthe possibility of dehiscence. If there is concern, CT temporal bonescould be obtained for further evaluation. Please note that all CT scans at this facility use dose modulation,iterative reconstruction, and/or weight-based dosing when appropriate toreduce radiation dose to as low as reasonably achievable. Dictated by Gilbert Schneider MD @ 03/08/2024 8:32:28 AM (Electronically Signed) Manpreet Nino MD CT from Last 3 Months Advance Directives * Full Code (Latest Code Status on File) Date Activated Date Inactivated Comments 05/01/2020 6:55 AM 05/01/2020 12:33 PM Question Answer Comments Code Status Discussion: Not Discussed * Full Code Date Activated Date Inactivated Comments 10/09/2018 4:21 PM 10/10/2018 11:52 AM Care Teams Custodial Worker Relationship Specialty Start Date End Date [place]ael [place] [address] PCP - General Family Practice 10/14/23
--- OUTSIDE RECORDS SUMMARY | 2024-04-23 21:00 | XMS_ITS | Data Portability ---
Author Organization [place] [facility], [facility] Address [address] [place] [address] Assessment Encounter Date Assessment Date Assessment LastModified by Organization Details LastModified Time 12/08/2022 12/08/2022 82 Y/O MALE, SEEN FOR A SLIGHTLY ELEVATED PSA. PSA, 5.1,5.2 RANGE. FAMILY HX CAP- BROTHER. LARGE PROSTATE 100G+. PSA DENSITY NORMAL. MINOR VOIDING SX.S. REVIEWED RECORDS, LABS FROM PRIMARY PRESENT DURING VISIT PLAN SCHEDULE PROSTATE MRI SCAN .IF POSITIVE DO URONAV MRI FUSION. PROCEDURE EXPLAINED IN DETAIL. [email or web address] Not available 12/08/2022 16:26:13 09/20/2023 09/20/2023 82-year-old male presents for UroNav prostate biopsy. Previously evaluated by Dr. Snyder. PSA found to be elevated at 5.2, prostate MRI revealed 160 g gland with a PI-RADS 5 lesion at the left apex. [email or web address] Not available 09/20/2023 16:11:24 10/06/2023 10/06/2023 82-year-old male with prostate cancer. 15 cores positive, including UroNav lesion, with grade group 1 disease, 160 g prostate with PI-RADS 5 lesion, PSA 5.2. Reviewed PSA, prostate MRI, prostate biopsy pathology [place] [id number] Not available 10/06/2023 10:22:15 Plan of Treatment Reminders Order Date Submit Date Provider Last Modified By Organization Details Last Modified Time Details Appointments None recorded. Lab urinalysis, dipstick 2022 023 [email or web address] [facility], [address], [place], [address], 3 16:02:17 biopsy, prostate 2023 ANTONINA Ddx [facility], [address], [place], [address], 4 12:29:11 Referral None recorded. Procedures None recorded. Surgeries None recorded. Imaging None recorded. Medication Orders ceftriaxone 1 gram solution for injection 2023 mgoodpast er3 [facility] #[id number], [address] [place], [place], [id number], 4 15:09:26 finasteride 5 mg tablet 2023 [facility] #[id number], [address] [place], [place], [id number], 4 10:01:58 tamsulosin 0.4 mg capsule 2023 [employer] [facility] #[id number], [address] [place], [place], [phone], 4 13:48:49 Patient TargetsNo targets recorded. Patient Instructions Encounter Date Encounter Id Patient Instructions Last Modified By Organization Details Last Modified Time 09/20/2023 [id number] 82-year-old male presents for UroNav prostate biopsy. Previously evaluated by Dr. Snyder. PSA found to be elevated at 5.2, prostate MRI revealed 160 g gland with a PI-RADS 5 lesion at the left apex. Not available 09/20/2023 16:11:25 10/06/2023 [id number] 82-year-old male with prostate cancer. 6/15 cores positive, including UroNav lesion, with grade group 1 disease, 160 g prostate with PI-RADS 5 lesion, PSA 5.2. We had an in-depth discussion about the treatment options including active surveillance, radiation, and robotic radical prostatectomy. Risks, benefits, and expected recovery following both radiation and robotic radical prostatectomy were explained. Counseled that radiation typically leads to overactive bladder symptoms, decline in erectile function over the years following radiation, and risks of late term complications many years down the road. Depending on grade of cancer, hormone deprivation may also be indicated. Counseled patient that robotic radical prostatectomy typically involves an overnight hospital stay and Kong catheterization for 7 to 10 days, and avoidance of strenuous physical activity for 6 weeks postoperatively. We discussed the risks of surgery including but not limited to urinary incontinence, erectile dysfunction, rectal injury, small bowel or colonic injury, hemorrhage with injury to vascular structures, lymphocele with or without infection, DVT, PE, MD, hernia formation, bladder neck contracture and other urethral strictures, positional injuries and anesthetic related injuries. Given his PI-RADS 5 lesion and all positive cores on that left side, also discussed ROXI as an option for focal treatment. ---Patient is interested in ROXI, will review the case with Dr. Brown --- If patient is not a candidate for ROXI, we will plan for active surveillance with a PSA in 6 months, decipher test, and confirmatory biopsy with MRI prior in 1 year. --- We will start finasteride 5 mg daily for BPH symptoms [email or web address] Not available 10/06/2023 10:23:54 Reason for Referral None Reported. Results Created Date Observation Date Name Description Value Unit Range Abnormal Flag Note LastModifiedBy Organization Detail LastModifiedTime 12/09/1912/08/2022 urina lysis , dipst ick Color-Status Yellow Not Available [facility] [address], [place], [address], 12/08/2022 16:01:33 12/09/1912/08/2022 urina lysis , dipst ick Clarity-Stat us Clear Not Available [facility] [address], [place], [address], 12/08/2022 16:01:33 12/09/19 23 12/08/2022 urina lysis , dipst ick pH-Status 5.5 Not Available [facility] [address], [place], [address], 12/08/2022 16:01:33 12/09/19 23 12/08/2022 urina lysis , dipst ick Nitrates-Sta tus negati ve Not Available [facility] [address], [place], [address], 12/08/2022 16:01:33 12/09/19 23 12/08/2022 urina lysis , dipst ick Blood-Status Negati ve Not Available [facility] [address], [place], [address], 12/08/2022 16:01:33 12/09/19 23 12/08/2022 urina lysis , dipst ick Leuko-Status Negati ve Not Available [facility] [address], [place], [address], 12/08/2022 16:01:33 03/14/20 23 03/14/2023 PSA, total , serum or plasm a PSA 4.41 high Not Available Not Availa ble 07/19/2023 10:58:34 09/21/19 24 09/21/2023 PROST ATE BIOPS Y left lateral base ADENOC ARCINO MA abnormal Not Available [facility] [employer] [address], [place], [address], 09/22/2023 12:29:11 09/21/19 24 09/21/2023 PROST ATE BIOPS Y left base BENIGN PROSTA TIC TISSUE normal Not Available Ddx [employer] [address], [place], [address], 09/22/2023 12:29:11 09/21/19 24 09/21/2023 PROST ATE BIOPS Y left lateral mid ADENOC ARCINO MA abnormal Not Available Ddx [facility] [address], [place], [address], 09/22/2023 12:29:11 09/21/19 24 09/21/2023 PROST ATE BIOPS Y left mid ADENOC ARCINO MA abnormal Not Available Ddx [employer] [address], [place], [address], 09/22/2023 12:29:11 09/21/19 24 09/21/2023 PROST ATE BIOPS Y left lateral apex BENIGN PROSTA TIC TISSUE normal Not Available [facility] [address], [place], [address], 09/22/2023 12:29:11 09/21/19 24 09/21/2023 PROST ATE BIOPS Y left apex BENIGN PROSTA TIC TISSUE normal Not Available [facility] [address], [place], [address], 09/22/2023 12:29:11 09/21/19 24 09/21/2023 PROST ATE BIOPS Y right base BENIGN PROSTA TIC TISSUE normal Not Available [facility] [address], [place], [address], 09/22/2023 12:29:11 09/21/19 24 09/21/2023 PROST ATE BIOPS Y right lateral base BENIGN PROSTA TIC TISSUE normal Not Available [facility] [address], [place], [address], 09/22/2023 12:29:11 09/21/19 24 09/21/2023 PROST ATE BIOPS Y right mid BENIGN PROSTA TIC TISSUE normal Not Available [facility] [address], [place], [address], 09/22/2023 12:29:11 09/21/19 24 09/21/2023 PROST ATE BIOPS Y right lateral mid BENIGN PROSTA TIC TISSUE normal Not Available [facility] [address], [place], [address], 09/22/2023 12:29:11 09/21/19 24 09/21/2023 PROST ATE BIOPS Y right apex BENIGN PROSTA TIC TISSUE normal Not Available [facility] [address], [place], [address], 09/22/2023 12:29:11 09/21/19 24 09/21/2023 PROST ATE BIOPS Y right lateral apex BENIGN PROSTA TIC TISSUE normal Not Available [facility] [address], [place], [address], 09/22/2023 12:29:11 09/21/19 24 09/21/2023 PROST ATE BIOPS Y L pz ADENOC ARCINO MA abnormal Not Available [facility] [address], [place], [address], 09/22/2023 12:29:11 01/26/20 23 01/12/2023 MRI, prost ate, w/wo contr ast No observ ation record ed. [facility] [address], [place], [address], 01/26/2023 14:42:36 Result Notes None recorded. Problems Name Problem SNOMED Code Status Onset Date Resolution Date Notes Provider Name and Address Organization Details Recorded Time Prostate specific antigen above reference range 096853763 Active 2023 ISMA GOMES MD [address] [place] [address],[address] [place] [address], [address], [facility] 4 09:06:53 Malignant tumor of prostate 587176771 Active 2023 ISMA GOMES MD [address] [place] [address],[address], [place], [address], [facility] 4 09:55:34 Lower urinary tract symptoms due to benign prostatic hypertrophy 4783059292517 1 Active 2023 ISMA GOMES MD [address] [place] [address],[address], [place], [address], [facility] 4 09:55:43 Erectile dysfunction 719307163 Active 2023 ISMA GOMES MD [address] [place] [address],[address], [place], [address], [facility] 4 13:33:41 Problem Notes None recorded. Procedures Surgical History Date Name Laterality Status Provider Name and Address Organization Details Recorded Time 10/06/19 24 COMPLEX VISIT completed ISMA GOMES MD [address] [place] [address],[address], [place], [address], [facility] 10/06/2023 10:21:07 09/20/19 24 Prostate Biopsy Procedure completed ISMA GOMES MD [address] [place] [address],[address], [place], [address], [facility] 09/20/2023 15:31:05 09/20/19 24 COMPLEX VISIT completed ISMA GOMES MD [address] [place] [address],[address], [place], [address], [facility] 09/20/2023 15:30:55 09/20/19 24 Rocephin/Ceftriaxo ne completed Flaca Cross [facility] 09/20/2023 14:45:23 09/12/19 19 cardiac pacemaker procedure completed Sina Snyder MD [address] [place] [address],[address], [place], [address], [facility] 12/08/2022 15:57:31 06/13/19 12 Diagnostic colonoscopy completed Not Available Health Note 07/22/2023 21:20:42 06/13/19 02 placement of stent in cardiac conduit completed Sina Snyder MD [address] [place] [address],[address], [place], [address], [facility] 12/08/2022 15:55:34 06/13/18 95 Appendectomy completed Sina Snyder MD [address] [place] [address],[address], [place], [address], [facility] 12/08/2022 15:55:52 06/13/18 90 cholecystectomy completed Sina Snyder MD [address] [place] [address],[address], [place], [address], [facility] 12/08/2022 15:56:50 Laparoscopic cholecystectomy completed Not Available Health Note 07/22/2023 21:20:42 Hernia repair w/mesh completed Not Available Health Note 07/22/2023 21:20:42 Imaging Results Imaging Date Name Status LastModified by Organiz ation Details LastModified Time 01/12/2023 MRI, prostate, w/wo contrast completed [facility] [address], [place], [address], 01/26/2023 14:42:36 Procedure Notes None recorded. Medical Equipment None Reported. Allergies No known drug allergies Medications Name Sig Start Date Stop Date Status Note LastModified by Organization Details LastModified Time atorvasta tin 20 mg tablet active Not Available Not Available Not Available metoprolo l succinate ER 50 mg tablet,ex tended release 24 hr active Not Available Not Available Not Available Tylenol Arthritis Pain 650 mg tablet,ex tended release 650mg 2/day active Not Available Not Available No t Available amlodipin e 5 mg tablet active Not Available Not Available Not Available sildenafi l 100 mg tablet TAKE 1 TABLET BY MOUTH NEEDED active Not Available Not Available No t Available valsartan 80 mg-hydroc hlorothia zide 12.5 mg tablet TAKE 1 TABLET BY MOUTH EVERY DAY active Not Available Not Available No t Available ceftriaxo ne 1 gram solution for injection Take 1 g by injectio n route. 09/19 completed Not Available Not Available Not Available tamsulosi n 0.4 mg capsule TAKE 1 CAPSULE BY MOUTH EVERY DAY active Not Available Not Available No t Available pantopraz ole 40 mg tablet,de layed release active Not Available Not Available Not Available nitroglyc liz 0.4 [address] l tablet PL[address] ONE TABLET UNDER TONGUE NEEDED FOR CHEST PAIN EVERY 5 MINUTES 09/19 completed HN: Patient reports no longer taking Not Available Not Available Not Available levofloxa genesis 500 mg tablet TAKE 1 TABLET BY MOUTH NEEDED FOR 1 DAY 09/19 completed Not Available Not Available Not Available methylpre dnisolone 4 mg tablets in a dose pack FOLLOW PACKAGE DIRECTIO NS 12/08 completed Not Available Not Available Not Available albuterol sulfate HFA 90 mcg/actua tion aerosol inhaler INHALE 2 PUFFS BY MOUTH EVERY 6 HOURS NEEDED FOR SHORTNES S OF BREATH active Not Available Not Available No t Available ondansetr on 4 mg disintegr ating tablet 12/08 completed Not Available Not Available Not Available fluticaso ne propionat e 50 mcg/actua tion nasal spray,latosha pension [place] 1 spray every day by intranas al route. active Not Available Not Available No t Available ipratropi um bromide 21 mcg (0.03 %) nasal spray active Not Available Not Available Not Available finasteri de 5 mg tablet TAKE ONE TABLET BY MOUTH ONE TIME DAILY 2023 active Not Available Not Available Not Avai lable Low Dose Aspirin 81 mg tablet,de layed release Take 1 tablet every day by oral route. active Not Available Not Available No t Available silodosin 8 mg capsule TAKE 1 CAPSULE BY MOUTH EVERY DAY active Not Available Not Available No t Available Xarelto 20 mg tablet active Not Available Not Available Not Available BinaxNOW COVID-19 Ag Self Test kit TEST DIRECTED TODAY 12/08 completed Not Available Not Available Not Available Vitals Date Recorded Body height Body mass index (BMI) Body weight Provider Name and Address Organization Details Last Updated DateTime 12/08/2022 182.88 cm 28.5 kg/m2 31885.4 g Sina Snyder MD [address] [facility],[address], [place], [address] 12/08/2022 15:49:37 Date Recorded Body height Body mass index (BMI) Body weight Provider Name and Address Organization Details Last Updated DateTime 09/20/2023 182.88 cm 28.5 kg/m2 07796.4 g Lucie Moctezuma [facility] 09/20/2023 15:09:04 Date Recorded Body mass index (BMI) Body weight Body height Provider Name and Address Organization Details Last Updated DateTime 10/06/2023 28.2 kg/m2 76306.78624 90501 g 180.34 cm Not Available Health Note 10/06/2023 09:32:21 Social History Question Answer Notes LastModified by Organizat ion Details LastModified Time Tobacco Smoking Status Never Smoker Not Available Health Note 07/22/2023 21:20:43 What Is Your Level Of Alcohol Consumption? None Information not available 09/20/2023 How Much Tobacco Do You Chew? None [email or web address] Information not available 07/22/2023 Do You Or Have You Ever Used E-cigarettes Or Vape? Never Used Electronic Cigarettes [email or web address] Information not available 07/22/2023 When Did You Quit Smoking? 16+yearssincel samuel [email or web address] Information not available 12/08/2022 Race Unknown Information not available 09/20/2023 Preferred Language [place] Rican Information not available 09/20/2023 What Was The Date Of Your Most Recent Tobacco Screening? 09/20/2023 Information not available 09/20/2023 What Is Your Relationship Status? [email or web address] Information not available 10/05/2023 Do You Or Have You Ever Used Smokeless Tobacco? Never Used Smokeless Tobacco [email or web address] Information not available 07/22/2023 How Many Years Have You Smoked Tobacco? 1 [email or web address] Information not available 12/08/2022 How Many Days In The Past Year Have You Consumed 5 Or More Drinks? -60 [email or web address] Information no t available 07/22/2023 Sex: Unknown Functional Status None recorded. Mental Status None recorded. Family History Relationship Description Onset Age of this Age Resolved Age Notes LastModified by Organization Details LastModified Time Father Family history of malignant neoplasm of pancreas [email or web address] Not available 2022 15:51:15 Father Family history of diabetes mellitus [email or web address] Not available 2022 15:51:20 Father Family history of Angina [email or web address] Not available 2022 15:51:29 Mother Family history of congestive heart failure [email or web address] Not available 2022 15:51:42 Brother Family history of malignant neoplasm of prostate [email or web address] Not available 2022 15:51:49 Brother Family history of Hypertension [email or web address] Not available 15:52:06 Brother Family history of Myocardial infarction [email or web address] Not available 12/08 15:52:18 Medical History Condition Response Diabetes N Sexually Transmitted Infection N Other N Bleeding Disorder Y High Blood Pressure Y Kidney Stones Y High Cholesterol Y GERD/Acid Reflux Y Heart Disease Y Cancer N Lung Disease N Depression Y Immunizations Vaccine Type Date Status Provider Name and Address Organization Details Recorded Time SARS-COV-2 (COVID-19) vaccine, UNSPECIFIED 03/15/2023 medina montalvo [facility] 10/06/2023 09:36:17 influenza, unspecified formulation 03/13/2023 medina montalvo [facility] 10/06/2023 09:36:17 zoster live 06/13/2019 medina montalvo [facility] 09/20/2023 15:09:12 Influenza, adjuvanted, trivalent, PF 02/21/2018 medina montalvo [facility] 09/20/2023 15:09:12 zoster recombinant 12/21/2019 completed Lucie Goodpaster null, [facility] 09/20/2023 15:09:12 zoster recombinant 03/31/2020 completed [facility]aster null, [facility] 09/20/2023 15:09:12 Influenza, high-dose, quadrivalent, PF 04/09/2022 completed Luc[facility] Goodpaster null, [facility] 09/20/2023 15:09:12 Influenza, adjuvanted, quadrivalent, PF 02/12/2021 completed Lucie Goodpaster null, [facility] 09/20/2023 15:09:12 COVID-19, mRNA, LNP-S, PF, 30 mcg/0.3 mL dose 07/16/2020 completed Lucie Goodpaster null, [facility] 09/20/2023 15:09:12 COVID-19, mRNA, LNP-S, PF, 30 mcg/0.3 mL dose 08/06/2020 completed Lucie Goodpaster null, [facility] 09/20/2023 15:09:12 COVID-19, mRNA, LNP-S, PF, 30 mcg/0.3 mL dose 03/17/2021 completed Lucie Goodpaster null, [facility] 09/20/2023 15:09:12 COVID-19, mRNA, LNP-S, PF, 30 mcg/0.3 mL dose, oliver-sucrose 10/05/2021 completed Lucie Goodpaster null, [facility] 09/20/2023 15:09:12 COVID-19, mRNA, LNP-S, bivalent, PF, 30 mcg/0.3 mL dose 04/26/2022 completed Lucie Goodpaster null, [facility] 09/20/2023 15:09:12 pneumococcal polysaccharide PPV23 07/14/2007 completed Lucie Goodpaster null, [facility] 09/20/2023 15:09:12 influenza, unspecified formulation 03/01/2011 completed Lucie Goodpaster null, [facility] 09/20/2023 15:09:12 influenza, unspecified formulation 03/28/2015 completed Lucie Goodpaster null, [facility] 09/20/2023 15:09:12 influenza, unspecified formulation 03/31/2012 completed Lucie Goodpaster null, [facility] 09/20/2023 15:09:12 influenza, unspecified formulation 04/12/2014 completed Lucie Goodpaster null, [facility] 09/20/2023 15:09:12 influenza, unspecified formulation 04/24/2013 completed Lucie Goodpaster null, [facility] 09/20/2023 15:09:12 influenza, unspecified formulation 05/04/2016 completed Lucie Goodpaster null, [facility] 09/20/2023 15:09:12 Tdap 10/23/2013 completed Lucie Goodpaster null, [facility] 09/20/2023 15:09:12 Pneumococcal conjugate PCV 13 05/04/2016 completed Lucie Goodpaster null, [facility] 09/20/2023 15:09:12 Td (adult), 5 Lf tetanus toxoid, preservative free, adsorbed 09/27/2003 completed Lucie Goodpaster null, [facility] 09/20/2023 15:09:12 Td (adult), 5 Lf tetanus toxoid, preservative free, adsorbed 05/20/1997 [facility] 15:09:12 Influenza, adjuvanted, quadrivalent, PF 03/14/2023 [facility]23 09:36:17 COVID-19, mRNA, LNP-S, PF, oliver-sucrose, 30 mcg/0.3 mL 03/15/2023 [facility] 09:36:17 Past Encounters Encounter ID Performer Location Encounter Start Date Encounter Closed Date Diagnosis/Indication Diagnosis SNOMED-CT Code Diagnosis ICD10 Code [id number] Sina Snyder MD [facility] [address] [place], [place] [phone] 12/08/2022 15:39:51 12/17/2022 18:41:36 Prostate specific antigen above reference range 604913246 R97.20 [id number] Flaca Cross [facility] [address] [place] [phone] 09/20/2023 14:33:51 09/20/2023 14:47:25 Prostate specific antigen above reference range 180438819 R97.20 [id number] MD [facility] [address] [place] [phone] 09/20/2023 14:36:58 09/20/2023 16:42:36 Prostate specific antigen above reference range 333152096 R97.20 [id number] MD [facility] [address] [place] [phone] 10/06/2023 09:30:22 10/06/2023 10:48:07 Malignant tumor of prostate 862409972 C61 Lower urin gio tract symptoms due to benign prostatic hypertrophy 4626256067 9101 N40.1 Health Concerns Section Related Observation LastModified by Organization Detai ls LastModified Time None Recorded Concern Status LastModified by Organization Details LastModified Time None Recorded Advance Directives Directive None Recorded Payers Encounter Date Sequence Insurance Name Policy Number Policy De Anda Covered Member ID De Anda Member ID Guarantor Name 12/08/2022 1 [place] [employer] Wallace C Packwood [id number] 1 Wallace C Packwood 12/08/2022 2 [place] [id number] Wallace C Packwood [id number] Wallace C Packwood 09/20/2023 1 [place] [employer] Wallace C Packwood [id number] Wallace C Packwood 09/20/2023 2 [place] [id number] Wallace C Amie [id number] Wallace C Amie 09/20/2023 1 [place] [employer] Wallace C Amie [id number] Wallace C Amie 09/20/2023 2 [place] [id number] Rodrigo Slateridge [id number] Rodrigo Joshua Packwood 10/06/2023 1 [place] [facility] Rodrigo Slateridge [id number] 1 Rodrigo Joshua Amie 10/06/2023 2 [place] [id number] Wallace Josiane Packwood [id number] Rodrigo Holloway Notes Date Note Type Note Provider Name and Address Organization Details Recorded Time 12/08/2022 text/html HPI Notes: 82 y/ o male, SEEN FOR A SLIGHTLY ELEVATED PSA. FAMILY HX CAP, - BROTHER. PSA 5.2, 5.1. HX OF A LARGE PROSTATE WITH ONLY MINOR SX.S. NO MEDS. Sina Snyder MD [address] [place] [address],[address], [phone] [place] [address] Urology 12/08/2022 16:26:51 09/20/2023 text/html HPI Notes: 82-year-old male presents for UroNav prostate biopsy. Previously evaluated by Dr. Snyder. PSA found to be elevated at 5.2, prostate MRI revealed 160 g gland with a PI-RADS 5 lesion at the left apex. ISMA GOMES MD [address] [place] [address],[address], [phone], [facility] 09/20/2023 16:11:30 10/06/2023 text/html HPI Notes: 82-year-old male presents for prostate biopsy pathology results. Patient's PSA was found to be elevated at 5.2. Prostate MRI was obtained revealing 160 g gland with a PI-RADS 5 lesion. Prostate biopsy was performed revealing 6/15 cores positive, including the UroNav lesion, with grade group 1 disease. NCCN low risk. Patient does report some mild obstructive voiding symptoms Patient is not sexually active ISMA GMOES MD [address] [place] [address],[address], [address], [facility] 10/06/2023 10:24:02
[2024-04-23 21:10] LABS: Basophils Absolute Auto 0.05 K/uL (0.00-0.30); Basophils Percent Auto 0.8 % (0.0-3.0); Eosinophils Absolute Auto 0.14 K/uL (0.00-0.50); Eosinophils Percent Auto 2.3 % (0.0-7.0); Hematocrit 42.1 % (37.0-53.0); Hemoglobin* 14.2 gm/dL (13.5-17.5); Immature Granulocytes Abs Auto 0.01 K/uL (0.00-0.30); Immature Granulocytes Pct Auto 0.2 %; Lymphocytes Percent Auto 17.4 % (20-44); Mean Corpuscular HGB Conc 34 gm/dL (32-36); Mean Corpuscular Hemoglobin 30 pg (26-34); Mean Corpuscular Volume 89 fL (80-100); Monocytes Percent Auto 9.3 % (0.0-11.0); Neutrophils Absolute Auto 4.36 K/uL (1.7-7.0); Platelet Count* 171 K/uL (140-440); RDW Coefficient of Variation % 12.8 % (11.5-15.5); Red Blood Count 4.74 m/uL (4.30-5.90); White Blood Count* 6.22 K/uL (4.50-11.00)
[2024-04-23 21:12] LABS: Slide Review Reflex No
[2024-04-23 21:15] LABS: Chloride* 102 mmol/L (96-114); Potassium* 3.7 mmol/L (3.6-5.1); Sodium* 135 mmol/L (135-149)
[2024-04-23 21:18] LABS: Anion Gap 8 mEq/L (7-15); Blood Urea Nitrogen* 24 mg/dL (7-30); Carbon Dioxide* 25 mmol/L (20-32); Creatinine* 0.8 mg/dL (0.5-1.5); Est. Creatinine Clearance* 59.61; Estimated Glomerular Filt Rate 88 ml/min; Glucose* 171 mg/dL (60-115)
[2024-04-23 21:19] LABS: Calcium* 8.9 mg/dL (8.4-10.6)
[2024-04-23 21:45] LABS: Troponin, Point-of-Care* 0.02 ng/ml (0.01-0.04)
[2024-04-23 21:49] VITALS: BP 148/74; PULSE 70; RESP 16; O2SAT 97
== END 2024-04-23 22:20 | disposition home or self-care (01) ==
LOC: ED 20:59
PROVIDERS: Emergency Provider Emergency Medicine Emergency Medical Services; PCP Family Medicine
DX: R07.9 Chest pain, unspecified (principal)
CPT/HCPCS: 36415; 80048; 84484; 85025; 93005; 99284

== ENCOUNTER 2024-05-27 20:46 | Emergency (ER) | payer MEDICARE, BC, SELFPAY ==
[2024-05-27 20:53] VITALS: BP 135/84; PULSE 84; RESP 16; TEMP 36.9; O2SAT 96; BMI 29.6
--- NOTE | 2024-05-27 21:06 | ED_ITS ---
HPI - Wound/Laceration General Time Seen by Provider: 21:06 Date Seen: 05/27/24 Chief Complaint: Laceration/Wound Stated Complaint: L middle finger lac Time Seen by Provider: 05/27/24 21:05 Source: patient, family and RN notes reviewed Mode of arrival: ambulatory Limitations: no limitations History of Present Illness HPI narrative: Rodrigo is a very pleasant 83-year-old gentleman with history of up-to-date tetanus and comes to the emergency room for a laceration on his left 3rd finger. Patient is on blood thinners. States that tonight he had just taken a knife out of the drawer and it was clean. It fell and he went to catch it causing a laceration to the distal aspect of the left 3rd finger. He is able to flex and extend at that joint without any difficulty. Nursing staff had originally taken the bandage off but it was bleeding quite a bit and thus they put it back on. Related Data Home Medications ?Medication ?Instructions ?Recorded ?Confirmed amlodipine 5 mg tablet mg 08/13/22 11/30/23 atorvastatin 20 mg tablet mg 08/13/22 11/30/23 ipratropium bromide 21 mcg (0.03 intranasal 08/13/22 11/30/23 %) nasal spray metoprolol succinate 50 mg mg PO 08/13/22 11/30/23 tablet,extended release 24 hr pantoprazole 40 mg tablet,delayed mg PO 08/13/22 11/30/23 release rivaroxaban 20 mg tablet (Xarelto) mg 08/13/22 11/30/23 simvastatin 20 mg tablet mg 08/13/22 11/30/23 valsartan 80 tab 08/13/22 11/30/23 mg-hydrochlorothiazide 12.5 mg tablet silodosin 8 mg capsule 8 mg PO DAILY 11/30/23 11/30/23 Allergies Allergy/AdvReac Type Severity Reaction Status Date / Time Antihistamines - Alkylamine Allergy Verified 11/30/23 18:48 Review of Systems Narrative: No numbness or tingling. Able to move finger. [facility] Social History Smoking Status: Unknown if ever smoked Do you use any of these nicotine containing products: None Second hand tobacco smoke exposure: No How often do you have a drink containing alcohol: 2-4 times a month AUDIT-C Alcohol total score: 2 Non-prescribed substance use: denies use service: No Exam Narrative: Exam Narrative: Rodrigo is alert and oriented very pleasant well-spoken gentleman in no acute distress. Currently on Xarelto. Examination of the finger is done carefully he removed the bandage fortunately there is no bleeding wound is hemostatic it does measure approximately 1.75 cm extending from the mid aspect he lateral. Nail but not compromising the nail proximally on to the lateral aspect of the distal phalanx. I do not pull this area of part there is no foreign bodies noted because the wound is hemostatic I do put 2 separate layers of glue in place. Wound continues to be hemostatic. Const: Vital Signs, click to edit/add: Vital Signs - 24 hr 05/27/24 20:53 Temperature 98.5 F Pulse Rate [Right Radial] 84 Respiratory Rate 16 Blood Pressure [Ri ght Upper Arm] 135/84 Pulse Oximetry 96 Oxygen Delivery Me thod Room Air Documenting provider has reviewed patient's vital signs: yes Course Vital Signs Vital signs: Initial Vital Signs Temperature 98.5 F 05/27/24 20:53 Temperature Source Temporal Artery Scan 05/27/24 20:53 Pulse Rate 84 05/27/24 20:53 Pulse Rhythm Regular 05/27/24 20:53 Respiratory Rate 16 05/27/24 20:53 Blood Pressure 135/84 05/27/24 20:53 Blood Pressure Mean 101 05/27/24 20:53 Pulse Oximetry 96 05/27/24 20:53 Oxygen Delivery Method Room Air 05/27/24 20:53 Vital Signs Temperature 98.5 F 05/27/24 20:53 Pulse Rate 84 05/27/24 20:53 Respiratory Rate 16 05/27/24 20:53 Blood Pressure 135/84 05/27/24 20:53 Pulse Oximetry 96 05/27/24 20:53 Oxygen Delivery Method Room Air 05/27/24 20:53 Temperature 98.5 F 05/27/24 20:53 Pulse Rate 84 05/27/24 20:53 Respiratory Rate 16 05/27/24 20:53 Blood Pressure 135/84 05/27/24 20:53 Pulse Oximetry 96 05/27/24 20:53 Oxygen Delivery Method Room Air 05/27/24 20:53 MDM - Wound/Laceration MDM Narrative Medical decision making narrative: 1. Finger laceration repair-patient had a hemostatic wound with the edges lining up quite well. I hesitated to open up this wound and restart the bleeding as he is on Xarelto. He has full extension and sensation at this level. He agreed to Dermabond in lieu of stitches. Patient's tetanus is up-to-date. 2. Disposition-home at this time. Talked about the changes that Dermabond may undergo such as being clear over the next 36 hours and then becoming more opaque. Recommend just leaving the Dermabond in place. If in edge pops up they may trim it off within a broad Jian's hers. Monitor for signs and symptoms of infection and seek medical attention should they occur. Medical Records Attestation: I reviewed the patient's medical records. Discharge Plan Discharge Clinical Impression: Laceration Patient Disposition: Home, Self-Care Condition: Improved Additional Instructions: Please do not pick away at the glue. Let it fall off. Monitor for signs and symptoms of infection. Seek medical attention for red streaks coming appear finger, fever and worsening symptoms. Prescriptions: No Action silodosin 8 mg capsule 8 mg PO DAILY atorvastatin 20 mg tablet metoprolol succinate 50 mg tablet extended release 24 hr PO amlodipine 5 mg tablet valsartan-hydrochlorothiazide 80-12.5 mg tablet Patient Comments: TAKE 1 TABLET BY MOUTH EVERY DAY pantoprazole 40 mg tablet,delayed release (DR/EC) PO simvastatin 20 mg tablet Patient Comments: TAKE 1 TABLET BY MOUTH AT BEDTIME ipratropium bromide 21 mcg (0.03 %) spray,non-aerosol INTRANASAL Xarelto 20 mg tablet Follow Up/Referrals: Yael Hammonds DO [Primary Care Provider] - Stand Alone Forms: [employer] Info Instructions
--- OUTSIDE RECORDS SUMMARY | 2024-05-27 21:27 | XMS_ITS | Data Portability ---
Author Organization [place] [facility], [facility] Address [address] [place] [address] Assessment Encounter Date Assessment Date Assessment LastModified [...] PI-RADS 5 lesion at the left apex. [email or web address] Not available 09/20/2023 16:11:24 10/06/2023 10/06/2023 82-year-old male with prostate cancer. 15 cores positive, including UroNav lesion, with grade group 1 disease, 160 g prostate with PI-RADS 5 lesion, PSA 5.2. Reviewed PSA, prostate MRI, prostate biopsy pathology [email or web address] Not available 10/06/2023 10:22:15 Plan of Treatment Reminders Order Date Submit Date Provider Last Modified By Organization Details Last Modified Time Details Appointments None recorded. Lab urinalysis, dipstick 2022 023 [email or web address] [facility], [address], [place], [address], 3 16:02:17 biopsy, prostate 2023 ANTONINA Ddx [facility], [address], [place], [address], 4 12:29:11 Referral None recorded. Procedures None recorded. Surgeries None recorded. Imaging None recorded. Medication Orders ceftriaxone 1 gram solution for injection 2023 mgoodpast er3 [facility] #[id number], [address] [place], [place], [id number], 4 15:09:26 finasteride 5 mg tablet 2023 [facility] #[id number], [address] [place], [place], [phone], 4 10:01:58 tamsulosin 0.4 mg capsule 2023 [facility][id number], [address] [place], [place], [phone], 4 13:48:49 Patient TargetsNo targets recorded. Patient Instructions Encounter Date Encounter Id Patient Instructions Last Modified By Organization Details Last Modified Time 09/20/2023 [id number] 82-year-old male presents for UroNav prostate biopsy. Previously evaluated by Dr. Snyder. PSA found to be elevated at 5.2, prostate MRI revealed 160 g gland with a PI-RADS 5 lesion at the left apex. [email or web address] Not available 09/20/2023 16:11:25 10/06/2023 [id number] 82-year-old male with prostate cancer. 6/15 cores [...] lymphocele with or without infection, DVT, PE, CT, hernia formation, bladder neck contracture and other [...] finasteride 5 mg daily for BPH symptoms [email or web address] Not available 10/06/2023 10:23:54 Reason for Referral None Reported. Results Created Date Observation Date Name Description Value Unit Range Abnormal Flag Note LastModifiedBy Organization Detail LastModifiedTime 12/09/1912/08/2022 urina lysis , dipst ick Color-Status Yellow Not Available [facility] [address], [place], [address], 12/08/2022 16:01:33 12/09/1912/08/2022 urina lysis , dipst ick Clarity-Stat us Clear Not Available [facility] [address], [place], [address], 12/08/2022 16:01:33 12/09/19 23 12/08/2022 urina lysis , dipst ick pH-Status 5.5 Not Available [facility] [address], [place], [address], 12/08/2022 16:01:33 12/09/19 23 12/08/2022 urina lysis , dipst ick Nitrates-Sta tus negati ve Not Available [facility] [address], [place], [address], 12/08/2022 16:01:33 12/09/19 23 12/08/2022 urina lysis , dipst ick Blood-Status Negati ve Not Available [facility] [address], [place], [address], 12/08/2022 16:01:33 12/09/19 23 12/08/2022 urina lysis , dipst ick Leuko-Status Negati ve Not Available [facility] [address], [place], [address], 12/08/2022 16:01:33 03/14/20 23 03/14/2023 PSA, total , serum or plasm a PSA 4.41 high Not Available Not Availa ble 07/19/2023 10:58:34 09/21/19 24 09/21/2023 PROST ATE BIOPS Y left lateral base ADENOC ARCINO MA abnormal Not Available Ddx [employer] [address], [place], [address], 09/22/2023 12:29:11 09/21/19 24 09/21/2023 PROST ATE BIOPS Y left base BENIGN PROSTA TIC TISSUE normal Not Available [facility] [address], [place], [address], 09/22/2023 12:29:11 09/21/19 24 09/21/2023 PROST ATE BIOPS Y left lateral mid ADENOC ARCINO MA abnormal Not Available [facility]dx [employer] [address], [place], [address], 09/22/2023 12:29:11 09/21/19 24 09/21/2023 PROST ATE BIOPS Y left mid ADENOC ARCINO MA abnormal Not Available [facility] [address], [place], [address], 09/22/2023 12:29:11 09/21/19 24 09/21/2023 PROST ATE BIOPS Y left lateral apex BENIGN PROSTA TIC TISSUE normal Not Available [facility] [address], [place], [address], 09/22/2023 12:29:11 09/21/19 24 09/21/2023 PROST ATE BIOPS Y left apex BENIGN PROSTA TIC TISSUE normal Not Available [facility] [employer] [address], [place], [address], 09/22/2023 12:29:11 09/21/19 24 09/21/2023 PROST ATE BIOPS Y right base BENIGN PROSTA TIC TISSUE normal Not Available [facility] [employer] [address], [place], [address], 09/22/2023 12:29:11 09/21/19 24 09/21/2023 PROST ATE BIOPS Y right lateral base BENIGN PROSTA TIC TISSUE normal Not Available [facility] [employer] [address], [place], [address], 09/22/2023 12:29:11 09/21/19 24 09/21/2023 PROST ATE BIOPS Y right mid BENIGN PROSTA TIC TISSUE normal Not Available [facility] [address], [place], [address], 09/22/2023 12:29:11 09/21/19 24 09/21/2023 PROST ATE BIOPS Y right lateral mid BENIGN PROSTA TIC TISSUE normal Not Available [facility] [address], [place], [address], 09/22/2023 12:29:11 09/21/19 24 09/21/2023 PROST ATE BIOPS Y right apex BENIGN PROSTA TIC TISSUE normal Not Available [facility] [address], [place], [address], 09/22/2023 12:29:11 09/21/19 24 09/21/2023 PROST ATE BIOPS Y right lateral apex BENIGN PROSTA TIC TISSUE normal Not Available [facility] [employer] [address], [place], [address], 09/22/2023 12:29:11 09/21/19 24 09/21/2023 PROST ATE BIOPS Y L pz ADENOC ARCINO MA abnormal Not Available [facility]dx [facility] [address], [place], [address], 09/22/2023 12:29:11 01/26/20 23 01/12/2023 MRI, prost ate, w/wo contr ast No observ ation record ed. [email or web address] [facility] [address], [place], [address], 01/26/2023 14:42:36 05/08/20 24 04/24/2024 MRI, prost ate, w/wo contr ast No observ ation record ed. [facility]: [address], [place], [address], 05/08/2024 10:49:55 Result Notes None recorded. Problems Name Problem SNOMED Code Status Onset Date Resolution Date Notes Provider Name and Address Organization Details Recorded Time Prostate specific antigen above reference range 936528268 Active 2023 ISMA GOMES MD [address] [address],[address] [place] [address], [address], [facility] 4 09:06:53 Malignant tumor of prostate 047250459 Active 2023 ISMA GOMES MD [address] [place] [address],[address], [address], [facility] 4 09:55:34 Lower urinary tract symptoms due to benign prostatic hypertrophy 8503486253223 1 Active 2023 ISMA GOMES MD [address] [place] [address],[address] [place] [address], [address], [facility] 4 09:55:43 Erectile dysfunction 599053307 Active 2023 ISMA GOMES MD [address] [place] [address],[address], [address], [facility] 4 13:33:41 Problem Notes None recorded. Procedures Surgical History Date Name Laterality Status Provider Name and Address Organization Details Recorded Time 10/06/19 24 COMPLEX VISIT completed ISMA GOMES MD [address] [place] [address],[address], [place], [address], [facility] 10/06/2023 10:21:07 09/20/19 24 Prostate Biopsy Procedure completed ISMA GOMES MD [address] [place] [address],[address], [place], [address], [facility] 09/20/2023 15:31:05 09/20/19 24 COMPLEX VISIT completed ISMA GOMES MD [address] [place] [place] [address],[address], [place], [address], [facility] 09/20/2023 15:30:55 09/20/19 24 Rocephin[facility] ne [facility] 14:45:23 09/12/19 19 cardiac pacemaker procedure completed Sina Snyder MD [address] [place] [address],[address], [place], [address], [facility] 12/08/2022 15:57:31 06/13/19 12 Diagnostic colonoscopy completed Not Available Health Note 07/22/2023 21:20:42 06/13/19 02 placement of stent in cardiac conduit completed Sina Snyder MD [address] [place] [address],[address], [place], [address], [facility] 12/08/2022 15:55:34 06/13/18 95 Appendectomy completed Sina Snyder MD [address] [place] [address],[address], [place], [address], [facility] 12/08/2022 15:55:52 06/13/18 90 cholecystectomy completed Sina Snyder MD [address] [place] [address],[address], [place], [address], [facility] 12/08/2022 15:56:50 Laparoscopic cholecystectomy completed Not Available Health Note 07/22/2023 21:20:42 Hernia repair w/mesh completed Not Available Health Note 07/22/2023 21:20:42 Imaging Results Imaging Date Name Status [facility]Modified by [facility] Details LastModified Time 01/12/2023 MRI, prostate, w/wo contrast completed [facility] [address], [place], [address], 01/26/2023 14:42:36 04/24/2024 MRI, prostate, w/wo contrast completed [facility]: [address], [place], [address], 05/08/2024 10:49:55 Procedure Notes None recorded. Medical Equipment None [...] e 50 mcg/actua tion nasal spray,latosha pension Crouse 1 spray every day by intranas al [...] Updated DateTime 12/08/2022 182.88 cm 28.5 kg/m2 49981.4 g Sina Snyder MD [address], [address] 12/08/2022 15:49:37 Date Recorded Body height Body mass index (BMI) Body weight Provider Name and Address Organization Details Last Updated DateTime 09/20/2023 182.88 cm 28.5 kg/m2 27228.4 g Lucie Moctezuma [facility] 09/20/2023 15:09:04 Date Recorded Body mass index (BMI) Body weight Body height Provider Name and Address Organization Details Last Updated DateTime 10/06/2023 28.2 kg/m2 83700.60090 51610 g 180.34 cm Not Available Health Note [...] When Did You Quit Smoking? 16+yearssincel samuel Information not available 12/08/2022 Race Unknown Information not available 09/20/2023 Preferred Language Bahraini Information not available 09/20/2023 What Was The Date Of Your Most Recent Tobacco Screening? 09/20/2023 Information not available 09/20/2023 What Is Your Relationship Status? [email or web address] Information not available 10/05/2023 Do You Or Have You Ever Used Smokeless Tobacco? Never Used Smokeless Tobacco [email or web address] Information not available 07/22/2023 How Many Years Have You Smoked Tobacco? 1 Information not available 12/08/2022 How Many Days [...] available 12/08 15:52:18 Medical History Condition Response Other N High Blood Pressure Y Kidney Stones Y Lung Disease N Depression Y GERD/Acid Reflux Y Diabetes N Sexually Transmitted Infection N Bleeding Disorder Y Cancer N High Cholesterol Y Heart Disease Y Immunizations Vaccine Type Date Status Note Provider Nam e and Address Organization Details Recorded Time SARS-COV-2 (COVID-19) vaccine, UNSPECIFIED 10/03/202 3 completed Lucie Goodpaster null, [facility] 10/06/2023 09:36:17 influenza, unspecified formulation 3 completed Lucie Goodpaster null, [facility] 10/06/2023 09:36:17 zoster live 0 completed Lucie Goodpaster null, [facility] 09/20/2023 15:09:12 Influenza, adjuvanted, trivalent, PF 8 completed [facility] null, [facility] 09/20/2023 15:09:12 zoster recombinant 0 completed Lucie Goodpaster null, [facility] 09/20/2023 15:09:12 zoster recombinant 0 completed Lucie Goodpaster null, [facility] 09/20/2023 15:09:12 Influenza, high-dose, quadrivalent, PF 2 completed Lucie Goodpaster null, [facility] 09/20/2023 15:09:12 Influenza, adjuvanted, quadrivalent, PF 1 completed Lucie Goodpaster null, [facility] 09/20/2023 15:09:12 COVID-19, mRNA, LNP-S, PF, 30 mcg/0.3 mL dose 1 completed Lucie Goodpaster null, [facility] 09/20/2023 15:09:12 COVID-19, mRNA, LNP-S, PF, 30 mcg/0.3 mL dose 1 completed Lucie Goodpaster null, [facility] 09/20/2023 15:09:12 COVID-19, mRNA, LNP-S, PF, 30 mcg/0.3 mL dose 1 completed Lucie Goodpaster null, [facility] 09/20/2023 15:09:12 COVID-19, mRNA, LNP-S, PF, 30 mcg/0.3 mL dose, oliver-sucrose 2 completed Lucie Goodpaster null, [facility] 09/20/2023 15:09:12 COVID-19, mRNA, LNP-S, bivalent, PF, 30 mcg/0.3 mL dose 2 completed Lucie Goodpaster null, [facility] 09/20/2023 15:09:12 pneumococcal polysaccharide PPV23 8 completed Lucie Goodpaster null, [facility] 09/20/2023 15:09:12 influenza, unspecified formulation 1 completed Lucie Goodpaster null, [facility] 09/20/2023 15:09:12 influenza, unspecified formulation 5 completed Lucie Goodpaster null, [facility] 09/20/2023 15:09:12 influenza, unspecified formulation 2 completed Lucie Goodpaster null, [facility] 09/20/2023 15:09:12 influenza, unspecified formulation 4 completed Lucie Goodpaster null, [facility] 09/20/2023 15:09:12 influenza, unspecified formulation 3 completed Lucie Goodpaster null, [facility] 09/20/2023 15:09:12 influenza, unspecified formulation 6 completed Lucie Goodpaster null, [facility] 09/20/2023 15:09:12 Tdap 4 completed Lucie Goodpaster null, [facility] 09/20/2023 15:09:12 Pneumococcal conjugate PCV 13 6 completed Lucie Goodpaster null, [facility] 09/20/2023 15:09:12 Td (adult), 5 Lf tetanus toxoid, preservative free, adsorbed 4 completed Lucie Goodpaster null, [facility] 09/20/2023 15:09:12 Td (adult), 5 Lf tetanus toxoid, preservative free, adsorbed 7 completed Lucie Goodpaster null, [facility] 09/20/2023 15:09:12 Influenza, adjuvanted, quadrivalent, PF 3 completed Lucie Goodpaster null, [facility] 10/06/2023 09:36:17 COVID-19, mRNA, LNP-S, PF, oliver-sucrose, 30 mcg/0.3 mL 3 completed Lucie Cesarfrancisco j montalvo [facility] 10/06/2023 09:36:17 Past Encounters Encounter ID Performer Location Encounter Start Date Encounter Closed Date Diagnosis/Indication Diagnosis SNOMED-CT Code Diagnosis ICD10 Code [id number] Sina Snyder MD [facility] [address] [place] [address] 12/08/2022 15:39:51 12/17/2022 18:41:36 Prostate specific antigen above reference range 628603520 R97.20 [id number] [facility] [address] 09/20/2023 14:33:51 09/20/2023 14:47:25 Prostate specific antigen above reference range 628827323 R97.20 [id number] MD Jerrica [facility] [employer] [address] 09/20/2023 14:36:58 09/20/2023 16:42:36 Prostate specific antigen above reference range 336783658 R97.20 [id number] [facility] [employer] [address] 10/06/2023 09:30:22 10/06/2023 10:48:07 Malignant tumor of prostate 298611523 C61 Lower urin gio tract symptoms due to benign prostatic hypertrophy 8987606447 9101 N40.1 Health Concerns Section Related Observation LastModified by Organization Detai ls LastModified Time None Recorded Concern Status LastModified by Organization Details LastModified Time None Recorded Advance Directives Directive None Recorded Payers Encounter Date Sequence Insurance Name Policy Number Policy De Anda Covered Member ID De Anda Member ID Guarantor Name 12/08/2022 1 [place] [employer] Rodrigo Holloway [id number] 1 Rodrigo Holloway 12/08/2022 2 [place] [id number] Wallace C Amie [id number] Wallace C [place] 09/20/2023 1 [place] [employer] Wallace C Amie [id number] Wallace C [place] 09/20/2023 2 [place] [id number] Wallace C Amie [id number] Wallace C Amie 09/20/2023 1 [place] [employer] Wallace C Amie [id number] Wallace C Amie 09/20/2023 2 [place] [id number] Wallace C [place] [id number] Wallace C Amie 10/06/2023 1 [place] [employer] Wallace C [place] [id number] 1 Wallace C Amie 10/06/2023 2 [place] [id number] Wallace C Amie [id number] Wallace C [place] Notes Date Note Type Note Provider Name and Address Organization Details Recorded Time 12/08/2022 text/html 82 y/o male, SEE N FOR A SLIGHTLY ELEVATED PSA. FAMILY HX CAP, - BROTHER. PSA 5.2, 5.1. HX OF A LARGE PROSTATE WITH ONLY MINOR SX.S. NO MEDS. Sina Snyder MD [address] [place] [address],[place] [address], [place], [address], [facility] 12/08/2022 16:26:51 09/20/2023 text/html 82-year-old male presents for UroNav prostate biopsy. Previously evaluated by Dr. Snyder. PSA found to be elevated at 5.2, prostate MRI revealed 160 g gland with a PI-RADS 5 lesion at the left apex. ISMA GOMES MD [address], [place], [address], [facility] 09/20/2023 16:11:30 10/06/2023 text/html 82-year-old male presents for prostate biopsy pathology [...] symptoms Patient is not sexually active ISMA GOMES MD [address], [place], [address], [facility] 10/06/2023 10:24:02
== END 2024-05-27 22:07 | disposition home or self-care (01) ==
LOC: ED 21:26
PROVIDERS: Emergency Provider Family Medicine; PCP Family Medicine
DX: S61.213A Laceration without foreign body of left middle finger without damage to nail, initial encounter (principal); W26.9XXA Contact with unspecified sharp object(s), initial encounter
CPT/HCPCS: 99283; 99284

== ENCOUNTER 2024-06-06 18:02 | Emergency (ER) | payer MEDICARE, BC, SELFPAY ==
[2024-06-06] VITALS (11 sets, daily range): BP systolic 128–154; BP diastolic 74–87; PULSE 65–102; RESP 16; TEMP 36.3; O2SAT 94–97; BMI 29.6
--- OUTSIDE RECORDS SUMMARY | 2024-06-06 18:03 | XMS_ITS | Continuity of Care Document ---
Author Name [employer] Organization Interface Problems Problem Status Onset Date Classification Date Reported Comments Source Medications Medication Details Route Status Patient Instruction s Ordering Provider Order Date Source Allergies, Adverse Reactions, Alerts Substance Category Reaction Severity Reaction type Status Date Reported Comments Source Immunizations Immunization Date Given Site Status Last Updated Comments So urce Results Order Name Results Value Reference Range Date Interpretation Comments Source Coagulation Studies PT 20.1 s 9.3 - 13.5 019 [facility] Coagulation Studies INR 1.75 0.78 - 1.15 019 [facility] Hematology Studies Platelet 178 K/cumm 150 - 450 019 [facility] Hematology Studies MPV 9.4 fL 7.0 - 12.0 019 [facility] Coagulation Studies INR 1.26 0.78 - 1.15 019 [facility] Coagulation Studies PT 14.7 s 9.3 - 13.5 019 [facility] Hematology Studies Platelet 176 K/cumm 150 - 450 019 [facility] Hematology Studies MPV 8.7 fL 7.0 - 12.0 019 [facility] Vital Signs Vital Sign Value Date Comments Source Encounters Location Location Details Encounter Type Encounter Number Reason For Visit Attending Provider ADM Date DC Date Status Source [facility] [id number] Physician UnknownMD 10/30 [facility] [id number] Physician UnknownMD 11/01 [facility] Procedures Procedure Code Date Perfomer Comments Source No data available for this section [facility]
--- OUTSIDE RECORDS SUMMARY | 2024-06-06 18:03 | XMS_ITS | Data Portability ---
Author Organization [place] [facility] Address [address] [facility] [address] [place] [address] Assessment Encounter Date Assessment Date Assessment LastModified [...] PI-RADS 5 lesion at the left apex. [email or web address] Not available 09/20/2023 16:11:24 10/06/2023 10/06/2023 82-year-old male with prostate cancer. 15 cores positive, including UroNav lesion, with grade group 1 disease, 160 g prostate with PI-RADS 5 lesion, PSA 5.2. Reviewed PSA, prostate MRI, prostate biopsy [email or web address] Not available 10/06/2023 10:22:15 Plan of Treatment Reminders Order Date Submit Date Provider Last Modified By Organization Details Last Modified Time Details Appointments None recorded. Lab urinalysis, dipstick 2022 023 [email or web address] [facility], [address], [place], [address], 3 16:02:17 biopsy, prostate 2023 ANTONINA Ddx [facility], [address], [place], [address], 4 12:29:11 Referral None recorded. Procedures None recorded. Surgeries None recorded. Imaging None recorded. Medication Orders ceftriaxone 1 gram solution for injection 2023 mgoodpast er3 [facility][id number], [address] [place], [place], [id number], 4 15:09:26 finasteride 5 mg tablet 2023 [id number], [address] [place], [place], [id number], 4 10:01:58 tamsulosin 0.4 mg capsule 2023 [id number], [address] [place], [place], [id number], 4 13:48:49 Patient TargetsNo targets recorded. Patient Instructions Encounter Date Encounter Id Patient Instructions Last Modified By Organization Details Last Modified Time 09/20/2023 [id number] 82-year-old male presents for UroNav prostate biopsy. Previously evaluated by Dr. Snyder. PSA found to be elevated at 5.2, prostate MRI revealed 160 g gland with a PI-RADS 5 lesion at the left apex. Not available 09/20/2023 16:11:25 10/06/2023 [id number] 82-year-old male with prostate cancer. 6/15 cores [...] lymphocele with or without infection, DVT, PE, [place], hernia formation, bladder neck contracture and other [...] finasteride 5 mg daily for BPH symptoms [email or web address] Not available 10/06/2023 10:23:54 Reason for Referral None Reported. Results Created Date Observation Date Name Description Value Unit Range Abnormal Flag Note LastModifiedBy Organization Detail LastModifiedTime 12/09/1912/08/2022 urina lysis , dipst ick Color-Status Yellow Not Available [facility] [address], [place], [address], 12/08/2022 16:01:33 12/09/1912/08/2022 urina lysis , dipst ick Clarity-Stat us Clear Not Available [facility] [address], [place], [address], 12/08/2022 16:01:33 12/09/19 23 12/08/2022 urina lysis , dipst ick pH-Status 5.5 Not Available [facility] [address], [place], [address], 12/08/2022 16:01:33 12/09/19 23 12/08/2022 urina lysis , dipst ick Nitrates-Sta tus negati ve Not Available [facility] [address], [place], [address], 12/08/2022 16:01:33 12/09/19 23 12/08/2022 urina lysis , dipst ick Blood-Status Negati ve Not Available [facility] [address], [place], [address], 12/08/2022 16:01:33 12/09/19 23 12/08/2022 urina lysis , dipst ick Leuko-Status Negati ve Not Available [facility] [address], [place], [address], 12/08/2022 16:01:33 03/14/20 23 03/14/2023 PSA, total , serum or plasm a PSA 4.41 high Not Available Not Availa ble 07/19/2023 10:58:34 09/21/19 24 09/21/2023 PROST ATE BIOPS Y left lateral base ADENOC ARCINO MA abnormal Not Available [facility] [address], [place], [address], 09/22/2023 12:29:11 09/21/19 24 09/21/2023 PROST ATE BIOPS Y left base BENIGN PROSTA TIC TISSUE normal Not Available [facility] [address], [place], [address], 09/22/2023 12:29:11 09/21/19 24 09/21/2023 PROST ATE BIOPS Y left lateral mid ADENOC ARCINO MA abnormal Not Available [facility]dx [facility] [address], [place], [address], 09/22/2023 12:29:11 09/21/19 24 09/21/2023 PROST ATE BIOPS Y left mid ADENOC ARCINO MA abnormal Not Available [facility] [address], [place], [address], 09/22/2023 12:29:11 09/21/19 24 09/21/2023 PROST ATE BIOPS Y left lateral apex BENIGN PROSTA TIC TISSUE normal Not Available [facility] [address], [place], [address], 09/22/2023 12:29:11 09/21/19 24 09/21/2023 PROST ATE BIOPS Y left apex BENIGN PROSTA TIC TISSUE normal Not Available [facility] [address], [place], [address], 09/22/2023 12:29:11 09/21/19 24 09/21/2023 PROST ATE BIOPS Y right base BENIGN PROSTA TIC TISSUE normal Not Available [facility] [address], [place], [address], 09/22/2023 12:29:11 09/21/19 24 09/21/2023 PROST ATE BIOPS Y right lateral base BENIGN PROSTA TIC TISSUE normal Not Available [facility] [address], [place], [address], 09/22/2023 12:29:11 09/21/19 24 09/21/2023 PROST ATE BIOPS Y right mid BENIGN PROSTA TIC TISSUE normal Not Available [facility] [address], [place], [address], 09/22/2023 12:29:11 09/21/19 24 09/21/2023 PROST ATE BIOPS Y right lateral mid BENIGN PROSTA TIC TISSUE normal Not Available [facility] [address], [place], [address], 09/22/2023 12:29:11 09/21/19 24 09/21/2023 PROST ATE BIOPS Y right apex BENIGN PROSTA TIC TISSUE normal Not Available [facility] [address], [place], [address], 09/22/2023 12:29:11 09/21/19 24 09/21/2023 PROST ATE BIOPS Y right lateral apex BENIGN PROSTA TIC TISSUE normal Not Available [facility] [address], [place], [address], 09/22/2023 12:29:11 09/21/19 24 09/21/2023 PROST ATE BIOPS Y L pz ADENOC ARCINO MA abnormal Not Available [facility] [address], [place], [address], 09/22/2023 12:29:11 01/26/20 23 01/12/2023 MRI, prost ate, w/wo contr ast No observ ation record ed. [email or web address] [facility] [address], [place], [address], 01/26/2023 14:42:36 05/08/20 24 04/24/2024 MRI, prost ate, w/wo contr ast No observ ation record ed. [email or web address] [facility]: [address], [place], [address], 05/08/2024 10:49:55 Result Notes None recorded. Problems Name Problem SNOMED Code Status Onset Date Resolution Date Notes Provider Name and Address Organization Details Recorded Time Prostate specific antigen above reference range 550074000 Active 2023 ISMA GOMES MD [address] [place] [address],[address] [place] [address], [address], [facility] 4 09:06:53 Malignant tumor of prostate 047967974 Active 2023 ISMA GOMES MD [address] [place] [address],[address], [place], [address], [facility] 4 09:55:34 Lower urinary tract symptoms due to benign prostatic hypertrophy 8300409083132 1 Active 2023 ISMA GOMES MD [address] [place] [address],[address] [place] [address], [address], [facility] 4 09:55:43 Erectile dysfunction 043722293 Active 2023 ISMA GOMES MD [address] [place] [address],[address], [place], [address], [facility] 4 13:33:41 Problem Notes None recorded. Procedures Surgical History Date Name Laterality Status Provider Name and Address Organization Details Recorded Time 10/06/19 24 COMPLEX VISIT completed ISMA GOMES MD [address] [place] [address],[address], [place], [address], [facility] 10/06/2023 10:21:07 09/20/19 24 Prostate Biopsy Procedure completed ISMA GOMES MD [address] [place] [address],[address], [place], [address], [facility] 09/20/2023 15:31:05 09/20/19 24 COMPLEX VISIT completed ISMA GOMES MD [address] [place] [address],[address], [place], [address], [facility] 09/20/2023 15:30:55 09/20/19 24 Rocephin/Ceftriaxo ne [facility] 14:45:23 09/12/19 19 cardiac pacemaker procedure completed Sina Snyder MD [address] [place] [address],[address], [place], [address], [facility] 12/08/2022 15:57:31 06/13/19 12 Diagnostic colonoscopy completed Not Available Health Note 07/22/2023 21:20:42 06/13/19 02 placement of stent in cardiac conduit completed Sina Snyder MD [address] [place] [address],[address], [place], [address], [facility] 12/08/2022 15:55:34 06/13/18 95 Appendectomy completed Sina Snyder MD [address] [place] [address],[address], [place], [address], [facility] 12/08/2022 15:55:52 06/13/18 90 cholecystectomy completed Sina Snyder MD [address] [place] [address],[address], [place], [address], [facility] 12/08/2022 15:56:50 Laparoscopic cholecystectomy completed Not Available Health Note 07/22/2023 21:20:42 Hernia repair w/mesh completed Not Available Health Note 07/22/2023 21:20:42 Imaging Results Imaging Date Name Status LastModified by Organiz [facility] Details LastModified Time 01/12/2023 MRI, prostate, w/wo contrast completed [facility] [address], [place], [address], 01/26/2023 14:42:36 04/24/2024 MRI, prostate, w/wo contrast completed [email or web address] [facility]: [address], [place], [address], 05/08/2024 10:49:55 Procedure Notes None recorded. Medical [...] e 50 mcg/actua tion nasal spray,latosha pension Stuart 1 spray every day by intranas al [...] Updated DateTime 12/08/2022 182.88 cm 28.5 kg/m2 18499.4 g Sina Snyder MD [address] [facility] [address], [place], [address] 12/08/2022 15:49:37 Date Recorded Body height Body mass index (BMI) Body weight Provider Name and Address Organization Details Last Updated DateTime 09/20/2023 182.88 cm 28.5 kg/m2 01611.4 g Lucie Moctezuma [facility] 09/20/2023 15:09:04 Date Recorded Body mass index (BMI) Body weight Body height Provider Name and Address Organization Details Last Updated DateTime 10/06/2023 28.2 kg/m2 90968.00305 07707 g 180.34 cm Not Available Health Note [...] Unknown Information not available 09/20/2023 Preferred Language Danish Information not available 09/20/2023 What Was The [...] High Blood Pressure Y Kidney Stones Y Depression Y Lung Disease N GERD/Acid Reflux Y Diabetes N Sexually Transmitted Infection N Bleeding Disorder Y Cancer N High Cholesterol Y Heart Disease Y Immunizations Vaccine Type Date Status Note Provider Nam e and Address Organization Details Recorded Time SARS-COV-2 (COVID-19) vaccine, UNSPECIFIED 10/03/202 3 completed Lucie Goodpaster null, [facility] 10/06/2023 09:36:17 influenza, unspecified formulation 3 completed Lucie Goodpaster null, [facility] 10/06/2023 09:36:17 zoster live 0 completed Lucie Goodpaster null, [facility] 09/20/2023 15:09:12 Influenza, adjuvanted, trivalent, PF 8 completed [facility] null, [facility] 09/20/2023 15:09:12 zoster recombinant 0 completed Lucie Goodpaster null, [facility] 09/20/2023 15:09:12 zoster recombinant 0 completed Lucie Goodpaster null, [facility] 09/20/2023 15:09:12 Influenza, high-dose, quadrivalent, PF 2 completed Lucie Goodpaster null, [facility] 09/20/2023 15:09:12 Influenza, adjuvanted, quadrivalent, PF 1 completed Lucie Goodpaster null, [facility] 09/20/2023 15:09:12 COVID-19, mRNA, LNP-S, PF, 30 mcg/0.3 mL dose 1 completed Lucie Goodpaster null, [facility] 09/20/2023 15:09:12 COVID-19, mRNA, LNP-S, PF, 30 mcg/0.3 mL dose 1 completed [facility] Goodpaster null, [facility] 09/20/2023 15:09:12 COVID-19, mRNA, LNP-S, PF, 30 mcg/0.3 mL dose 1 completed Luc[facility] Goodpaster null, [facility] 09/20/2023 15:09:12 COVID-19, mRNA, LNP-S, PF, 30 mcg/0.3 mL dose, oliver-sucrose 2 completed Luc[facility] Goodpaster null, [facility] 09/20/2023 15:09:12 COVID-19, mRNA, LNP-S, bivalent, PF, 30 mcg/0.3 mL dose 2 completed Lucie Goodpaster null, [facility] 09/20/2023 15:09:12 pneumococcal polysaccharide PPV23 8 completed Lucie Goodpaster null, [facility] 09/20/2023 15:09:12 influenza, unspecified formulation 1 completed Lucie Goodpaster null, [facility] 09/20/2023 15:09:12 influenza, unspecified formulation 5 completed Lucie Goodpaster null, [facility] 09/20/2023 15:09:12 influenza, unspecified formulation 2 completed Lucie Goodpaster null, [facility] 09/20/2023 15:09:12 influenza, unspecified formulation 4 completed Lucie Goodpaster null, [facility] 09/20/2023 15:09:12 influenza, unspecified formulation 3 completed Lucie Goodpaster null, [facility] 09/20/2023 15:09:12 influenza, unspecified formulation 6 completed Lucie Goodpaster null, [facility] 09/20/2023 15:09:12 Tdap 4 completed Lucie Goodpaster null, [facility] 09/20/2023 15:09:12 Pneumococcal conjugate PCV 13 6 completed Lucie Goodpaster null, [facility] 09/20/2023 15:09:12 Td (adult), 5 Lf tetanus toxoid, preservative free, adsorbed 4 completed Lucie Goodpaster null, [facility] 09/20/2023 15:09:12 Td (adult), 5 Lf tetanus toxoid, preservative free, adsorbed 7 completed Lucie Goodpaster null, [facility] 09/20/2023 15:09:12 Influenza, adjuvanted, quadrivalent, PF 3 completed Lucie Goodpaster null, [facility] 10/06/2023 09:36:17 COVID-19, mRNA, LNP-S, PF, oliver-sucrose, 30 mcg/0.3 mL 3 completed Lucie Cesarfrancisco j montalvo [facility] 10/06/2023 09:36:17 Past Encounters Encounter ID Performer Location Encounter Start Date Encounter Closed Date Diagnosis/Indication Diagnosis SNOMED-CT Code Diagnosis ICD10 Code [id number] Sina Snyder MD [facility] [address] [place] [address] 12/08/2022 15:39:51 12/17/2022 18:41:36 Prostate specific antigen above reference range 005980991 R97.20 [id number] [facility] [address] 09/20/2023 14:33:51 09/20/2023 14:47:25 Prostate specific antigen above reference range 921604485 R97.20 [id number] MD Jerrica [facility] [employer] [address] 09/20/2023 14:36:58 09/20/2023 16:42:36 Prostate specific antigen above reference range 491001511 R97.20 [id number] [facility] [employer] [address] 10/06/2023 09:30:22 10/06/2023 10:48:07 Malignant tumor of prostate 506954626 C61 Lower urin gio tract symptoms due to benign prostatic hypertrophy 1305269374 9101 N40.1 Health Concerns Section Related Observation LastModified by Organization Detai ls LastModified Time None Recorded Concern Status LastModified by Organization Details LastModified Time None Recorded Advance Directives Directive None Recorded Payers Encounter Date Sequence Insurance Name Policy Number Policy De Anda Covered Member ID De Anda Member ID Guarantor Name 12/08/2022 1 [place] [employer] Rodrigo Holloway [id number] 1 Rodrigo Holloway 12/08/2022 2 [place] [id number] Wallace C Amie [id number] Wallace C [place] 09/20/2023 1 [place] [employer] Wallace C Amie [id number] 1 Wallace C [place] 09/20/2023 2 [place] [id number] Wallace C Amie [id number] Wallace C Amie 09/20/2023 1 [place] [employer] Wallace C Amie [id number] 1 Wallace C Amie 09/20/2023 2 [place] [id number] Wallace C [place] [id number] Wallace C Amie 10/06/2023 1 [place] [employer] Wallace C [place] [id number] 1 Wallace C Amie 10/06/2023 2 [place] [id number] Wallace C Amie [id number] Wallace C [place] Notes Date Note Type Note Provider Name and Address Organization Details Recorded Time 12/08/2022 text/html 82 y/o male, SEE N FOR A SLIGHTLY ELEVATED PSA. FAMILY HX CAP, - BROTHER. PSA 5.2, 5.1. HX OF A LARGE PROSTATE WITH ONLY MINOR SX.S. NO MEDS. Sina Snyder MD [address] [place] [address],[place] [address], [place], [address], [facility] 12/08/2022 16:26:51 09/20/2023 text/html 82-year-old male presents for UroNav prostate biopsy. Previously evaluated by Dr. Snyder. PSA found to be elevated at 5.2, prostate MRI revealed 160 g gland with a PI-RADS 5 lesion at the left apex. ISMA GOMES MD [address] [facility],[address], [place], [address], [facility] 09/20/2023 16:11:30 10/06/2023 text/html 82-year-old male [...] is not sexually active ISMA GOMES MD [address] [facility],[address], [place], [address], [facility] 10/06/2023 10:24:02
--- OUTSIDE RECORDS SUMMARY | 2024-06-06 18:03 | XMS_ITS | Continuity of Care Document ---
Author Organization [facility] Address [address] [place] [address] Care Team Providers Care Director Global Sales Name Role Phone None, None Primary Care Physician Unavailab le Encounter Tomas Jagdeep [id number] Date(s): 11/01/18 - 11/01/18 [facility] [address] [place] [address] Attending Physician: UnknownMD, Physician Admitting Physician: UnknownMD, Physician Referring Physician: None, None Results Laboratory List Name Date PTINR 11/01/18 Platelet Count 11/01/18 Most recent to oldest [Reference Range]: 1 INR [0.78-1.15] 1.75 *HI* (11/01/18 2:10 PM) MPV [7.0-12.0 fL] 9.4 fL (11/01/18 2:10 PM) Platelet [150-450 k/cumm] 178 k/cumm (11/01/18 2:10 PM) PT [9.3-13.5 seconds] 20.1 seconds *HI* (11/01/18 2:10 PM)
--- OUTSIDE RECORDS SUMMARY | 2024-06-06 18:03 | XMS_ITS | Continuity of Care Document ---
Author Organization [facility] Address [address] [place] [address] Care Team Providers Care Sign Maintenance Name Role Phone None, None Primary Care Physician Unavailab le Encounter Tmoas Jagdeep [id number] Date(s): 10/30/18 - 10/30/18 [facility] [address] [place] [address] Attending Physician: UnknownMD, Physician Admitting Physician: UnknownMD, Physician Referring Physician: None, None Results Laboratory List Name Date PTINR (PT with INR) 10/30/18 Platelet Count 10/30/18 Most recent to oldest [Reference Range]: 1 INR [0.78-1.15] 1.26 *HI* (10/30/18 8:48 AM) MPV [7.0-12.0 fL] 8.7 fL (10/30/18 8:48 AM) Platelet [150-450 k/cumm] 176 k/cumm (10/30/18 8:48 AM) PT [9.3-13.5 seconds] 14.7 seconds *HI* (10/30/18 8:48 AM)
--- NOTE | 2024-06-06 18:33 | CRLHL7_ITS ---
For Patients: As a result of the Cures Act, medical imaging exams and procedure reports are released immediately into your electronic medical record. You may view this report before your referring provider. If you have questions, please contact your health care provider. INDICATION: Chest pain TECHNIQUE: Chest 2 views. COMPARISON: None FINDINGS: The heart is normal in size. There is a multi lead left-sided cardiac device. The pulmonary vasculature is within normal limits. The lungs are clear without focal consolidation, pleural effusion or pneumothorax. The bones are unremarkable. IMPRESSION: No acute process. Dictated by Linda Rascon MD @ 06/06/2024 7:28:38 PM Dictated by: Linda Rascon MD @ 06/06/2024 19:29:57 (Electronically Signed)
[2024-06-06] MEDS: ASPIRIN 81 MG TAB.CHEW 324 MG PO (18:47)
[2024-06-06 18:58] LABS: Basophils Absolute Auto 0.04 K/uL (0.00-0.30); Basophils Percent Auto 0.7 % (0.0-3.0); Eosinophils Absolute Auto 0.17 K/uL (0.00-0.50); Hemoglobin* 13.8 gm/dL (13.5-17.5); Lymphocytes Percent Auto 13.4 % (20-44); Mean Corpuscular HGB Conc 34 gm/dL (32-36); Mean Corpuscular Hemoglobin 30 pg (26-34); Mean Corpuscular Volume 89 fL (80-100); Monocytes Percent Auto 12.5 % (0.0-11.0); Neutrophils Percent Auto 70.4 % (42.0-72.0); Platelet Count* 187 K/uL (140-440); RDW Coefficient of Variation % 12.8 % (11.5-15.5); Red Blood Count 4.63 m/uL (4.30-5.90); White Blood Count* 5.68 K/uL (4.50-11.00)
[2024-06-06 19:02] LABS: Slide Review Reflex No
[2024-06-06 19:08] LABS: Troponin, Point-of-Care* 0.02 ng/ml (0.01-0.04)
[2024-06-06 19:12] LABS: Chloride* 106 mmol/L (96-114)
[2024-06-06 19:13] LABS: Potassium* 3.5 mmol/L (3.6-5.1); Sodium* 137 mmol/L (135-149)
[2024-06-06 19:15] LABS: Creatinine* 0.9 mg/dL (0.5-1.5); Est. Creatinine Clearance* 61.43; Estimated Glomerular Filt Rate 85 ml/min
[2024-06-06 19:16] LABS: Anion Gap 3 mEq/L (7-15); Blood Urea Nitrogen* 20 mg/dL (7-30); Calcium* 8.4 mg/dL (8.4-10.6); Carbon Dioxide* 28 mmol/L (20-32); Glucose* 118 mg/dL (60-115)
[2024-06-06 19:23] LABS: C Reactive Protein* < 0.5 mg/dL (0.5-1.0)
[2024-06-06 19:32] LABS: D Dimer Quantitative* < 0.27 ug/ml (0.00-0.50); NT Pro B Type NatriureticPept* 633 pg/mL
--- NOTE | 2024-06-06 19:33 | ED_ITS ---
HPI - Chest Pain General Date Seen: 06/06/24 Chief Complaint: Chest Pain Stated Complaint: Chest/L arm pain Time Seen by Provider: 06/06/24 18:20 Source: patient and family Mode of arrival: ambulatory Limitations: no limitations History of Present Illness HPI narrative: Patient is 83-year-old gentleman who presents here for evaluation of chest pain, he had it when he was walking his dog, approximately 1/10 of a mi, he stops walking the dog and the chest pain went away within 10 minutes he describes pressure in his chest with radiation to his left triceps region. This was not associated with nausea vomiting or diaphoresis. He does tell me however that he did play trombone for the 1st time in charge in a long time using his left hand and wonders if this may be had to do with it. He did not take anything for the discomfort, i.e. aspirin or nitroglycerin. He normally takes his aspirin at night has not yet taken it today. Denies any shortness of breath, otherwise feels fine right now. 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 Presents with his son. complaint: chest pain and chest heaviness Onset (ago): hour(s) Timing of current episode: now resolved Prior episodes: No Onset: during exertion Pain location: substernal and left chest Pain radiation: left arm Quality: other Relieving factors: nothing Treatment prior to arrival: none Risk Factors Coronary artery disease risk factors: hypertension Related Data Home Medications ?Medication ?Instructions ?Recorded ?Confirmed amlodipine 5 mg tablet 5 mg 08/13/22 11/30/23 atorvastatin 20 mg tablet 20 mg 08/13/22 11/30/23 ipratropium bromide 21 mcg (0.03 2 spray intranasal 08/13/22 11/30/23 %) nasal spray metoprolol succinate 50 mg 50 mg PO 08/13/22 11/30/23 tablet,extended release 24 hr pantoprazole 40 mg tablet,delayed 40 mg PO 08/13/22 11/30/23 release rivaroxaban 20 mg tablet (Xarelto) 20 mg 08/13/22 11/30/23 simvastatin 20 mg tablet 20 mg 08/13/22 11/30/23 valsartan 80 1 tab 08/13/22 11/30/23 mg-hydrochlorothiazide 12.5 mg tablet silodosin 8 mg capsule 8 mg PO DAILY 11/30/23 06/06/24 Allergies Allergy/AdvReac Type Severity Reaction Status Date / Time Antihistamines - Alkylamine Allergy Verified 11/30/23 18:48 Review of Systems Status of ROS Reports: 10 or more systems reviewed and unremarkable except as noted in History and below PFSH [facility] Social History Smoking Status: Unknown if ever smoked Do you use any of these nicotine containing products: None Second hand tobacco smoke exposure: No How often do you have a drink containing alcohol: 2-4 times a month AUDIT-C Alcohol total score: 2 Non-prescribed substance use: denies use service: No Exam Narrative Exam Narrative: On examination in room 3 he is in no apparent distress he speaking to me normally pupils equal round reactive to light there is no scleral icterus redness is TMs are normal his oropharynx is normal his neck is supple full range of motion JVP flat carotid upstrokes are equal bilaterally he wears glasses. Chest is good air entry bilaterally no wheezing crackles noted his heart sounds no clicks murmurs or gallops his abdomen is soft, obese there is no guarding no organomegaly noted moves all extremities independently well absence of any edema in lower extremities negative Homans sign and neurologically intact moving upper lower extremities. Const Vital Signs, click to edit/add: Vital Signs - 24 hr 06/06/24 18:04 06/06/24 18:25 06/06/24 18:26 Temperature 97.3 F L Pulse Rate 102 H 81 Pulse Rate [Pulse Oximeter] 80 Respiratory Rate 16 Blood Pressure 152/87 H Blood Pressure [Right Upper Arm] 154/74 H Pulse Oximetry 97 95 96 Oxygen Delivery Method Room Air 06/06/24 18:30 06/06/24 18:45 06/06/24 19:03 Temperature Pulse Rate 77 74 80 Pulse Rate [Pulse Oximeter] Respiratory Rate Blood Pressure Blood Pressure [Right Upper Arm] Pulse Oximetry 97 96 95 Oxygen Delivery Method 06/06/24 19:15 06/06/24 19:30 06/06/24 19:45 Temperature Pulse Rate 72 69 69 Pulse Rate [Pulse Oximeter] Respiratory Rate Blood Pressure Blood Pressure [Right Upper Arm] Pulse Oximetry 95 96 96 Oxygen Delivery Method 06/06/24 20:53 Temperature Pulse Rate Pulse Rate [Pulse Oximeter] 68 Respiratory Rate 16 Blood Pressure Blood Pressure [Right Upper Arm] 128/75 Pulse Oximetry 96 Oxygen Delivery Method Room Air Documenting provider has reviewed patient's vital signs: yes Course Reevaluation(s) Time of Reevaluation #1: 22:25 Reevaluation #1: Spoke to Dr. Vincent from Cardiology, given his troponin elevation and history he recommends transfer to [facility]. He initially suggested heparin, but the patient did not tell me that he was actually on Xarelto. I have attempted to reconnect with Dr. Vincent to see if he still wants the heparin did with the Xarelto. Normally loud his Xarelto to washout, and given that the patient is pain-free currently, he me want to wait. Vital Signs Vital signs: Initial Vital Signs Temperature 97.3 F L 06/06/24 18:04 Temperature Source Temporal Artery Scan 06/06/24 18:04 Pulse Rate 80 06/06/24 18:04 Respiratory Rate 16 06/06/24 18:04 Blood Pressure 154/74 H 06/06/24 18:04 Blood Pressure Mean 100 06/06/24 18:04 Pulse Oximetry 97 06/06/24 18:04 Oxygen Delivery Method Room Air 06/06/24 18:04 Vital Signs Temperature 97.3 F L 06/06/24 18:04 Pulse Rate 80 06/06/24 18:04 Respiratory Rate 16 06/06/24 18:04 Blood Pressure 154/74 H 06/06/24 18:04 Pulse Oximetry 97 06/06/24 18:04 Oxygen Delivery Method Room Air 06/06/24 18:04 Temperature 97.3 F L 06/06/24 18:04 Pulse Rate 68 06/06/24 20:53 Respiratory Rate 16 06/06/24 20:53 Blood Pressure 128/75 06/06/24 20:53 Pulse Oximetry 96 06/06/24 20:53 Oxygen Delivery Method Room Air 06/06/24 20:53 Medications Administered Medications: Discontinued Medications Generic Name Dose Route Start Last Admin Trade Name Freq PRN Reason Stop Dose Admin Aspirin 324 mg 06/06/24 18:33 06/06/24 18:47 Aspirin 81 Mg Tab.Chew PO 06/06/24 18:34 324 mg ONCE ONE Administration MDM - Chest Pain MDM Narrative Medical decision making narrative: During the evaluation of this patient I considered multiple differential diag nosis is. The life-threatening differential diagnosis include coronary disease/PR, pulmonary embolism, pneumothorax, pneumonia, and aortic dissection. Other differential diagnosis included but were not limited to pericarditis, myocarditis, chest wall pain, GERD, esophageal rupture, rib fracture contusion, pleurisy, as well as other etiologies. Differential Diagnosis Differential diagnosis: Likely fracture of rib, pneumothorax, stable angina, unstable angina pectoris, atypical chest pain, st elevation myocardial infarction, costochondritis, chest pain and biliary colic Medical Records Data Attestation: I reviewed the patient's medical records. Lab Data Attestation: I reviewed the patient's lab results. Labs: Lab Results 06/06/24 06/06/24 06/06/24 Range/Units 18:33 18:45 20:25 WBC 5.68 (4.50-11.00) K/uL RBC 4.63 (4.30-5.90) m/uL Hgb 13.8 (13.5-17.5) gm/dL Hct 41.0 (37.0-53.0) % MCV 89 (80-100) fL MCH 30 (26-34) pg MCHC 34 (32-36) gm/dL RDW Coeff of [place] 12.8 (11.5-15.5) % Plt Count 187 (140-440) K/uL Neut % (Auto) 70.4 (42.0-72.0) % Lymph % (Auto) 13.4 L (20-44) % [place] % (Auto) 12.5 H (0.0-11.0) % Eos % (Auto) 3.0 (0.0-7.0) % Baso % (Auto) 0.7 (0.0-3.0) % Neut # (Auto) 4.00 (1.7-7.0) K/uL Lymph # (Auto) 0.80 L (0.90-2.90) K/uL [place] # (Auto) 0.70 (0.00-0.90) K/UL Eos # (Auto) 0.17 (0.00-0.50) K/uL Baso # (Auto) 0.04 (0.00-0.30) K/uL Abs Immat Gran (auto) 0.00 (0.00-0.30) K/uL Imm/Tot Granulo (auto) 0.0 % D-Dimer Quant (PE/DVT) < 0.27 (0.00-0.50) ug/ml Sodium 137 (135-149) mmol/L Potassium 3.5 L (3.6-5.1) mmol/L Chloride 106 (96-114) mmol/L Carbon Dioxide 28 (20-32) mmol/L Anion Gap 3 L (7-15) mEq/L BUN 20 (7-30) mg/dL Creatinine 0.9 (0.5-1.5) mg/dL Estimated Creat Clear 61.43 Estimated GFR 85 ml/min Glucose 118 H (60-115) mg/dL Calcium 8.4 (8.4-10.6) mg/dL C-Reactive Protein < 0.5 L (0.5-1.0) mg/dL NT-Pro-B Natriuret Pep 633 pg/mL POC Troponin I 0.02 0.06 H (0.01-0.04) ng/ml Imaging Data Chest x-ray: Attestation: I have reviewed the pertinent imaging results. My impression: No acute finding Radiologist's impression: [place] [address] Diagnostic Imaging Report Patient: Rodrigo Holloway MR#: [id number] : 1940 Acct:[id number] Loc: ED Service Date: 06/06/[address]: Ordering Physician: Lester Zafar M.D. Date of Service: 06/06/24 Procedure(s): XR chest 2V Accession Number(s): [id number] cc: Lester Zafar M.D.; Yael Hammonds, ~ For Patients: As a result of the 21st Century Cures Act, medical imaging exams and procedure reports are released immediately into your electronic medical record. You may view this report before your referring provider. If you have questions, please contact your health care provider. INDICATION: Chest pain TECHNIQUE: Chest 2 views. COMPARISON: None FINDINGS: The heart is normal in size. There is a multi lead left-sided cardiac device. The pulmonary vasculature is within normal limits. The lungs are clear without focal consolidation, pleural effusion or pneumothorax. The bones are unremarkable. IMPRESSION: No acute process. Dictated by Linda Rascon MD @ 06/06/2024 7:28:38 PM Dictated by: Linda Rascon MD @ 06/06/2024 19:29:57 (Electronically Signed) ECG Data Attestation: I personally reviewed and interpreted this ECG as follows: ECG interpretation date: 06/06/24 Prior ECG tracings: available for review Interpretation: EKG shows atrial sensed ventricular paced rhythm. QRS is 202 milliseconds QT is 480 QTC is 547 in comparison to other EKG noted from 04/23/2024 there has been no changes. Discharge Plan Discharge Clinical Impression: Non-ST elevation myocardial infarction (NSTEMI), Chest pain, Elevated troponin, Anticoagulant long-term use Patient Disposition: [facility] Condition: Improved Prescriptions: No Action silodosin 8 mg capsule 8 mg PO DAILY atorvastatin 20 mg tablet 20 mg metoprolol succinate 50 mg tablet extended release 24 hr 50 mg PO amlodipine 5 mg tablet 5 mg valsartan-hydrochlorothiazide 80-12.5 mg tablet 1 tab Patient Comments: TAKE 1 TABLET BY MOUTH EVERY DAY pantoprazole 40 mg tablet,delayed release (DR/EC) 40 mg PO simvastatin 20 mg tablet 20 mg Patient Comments: TAKE 1 TABLET BY MOUTH AT BEDTIME ipratropium bromide 21 mcg (0.03 %) spray,non-aerosol 2 spray INTRANASAL Xarelto 20 mg tablet 20 mg Stand Alone Forms: [facility] Info Instructions
[2024-06-06 20:55] LABS: Troponin, Point-of-Care* 0.06 ng/ml (0.01-0.04)
== END 2024-06-06 22:48 | disposition short-term general hospital (02) ==
PROVIDERS: Emergency Provider Family Medicine; PCP Family Medicine
DX: R07.9 Chest pain, unspecified (principal); I21.4 Non-ST elevation (NSTEMI) myocardial infarction
CPT/HCPCS: 36415; 71046; 80048; 83880; 84484; 85025; 85379; 86140; 93005; 94761; 99285; A9270

== ENCOUNTER 2024-06-06 22:41 | Outpatient (CLI) | payer MEDICARE, BC, SELFPAY | END 2024-06-06 22:42 | disposition home or self-care (01) | LOC: AMB 06-07 04:12 | PROVIDERS: PCP Family Medicine; Visit Provider Family Medicine | DX: R07.89 Other chest pain (principal) | CPT/HCPCS: A0425; A0427 ==

== ENCOUNTER 2025-01-07 09:12 | Emergency (ER) | payer MEDICARE, BC, SELFPAY ==
--- OUTSIDE RECORDS SUMMARY | 2025-01-07 09:15 | XMS_ITS | Clinical Summary ---
Author Organization [facility] Address [address] [place] [id number] Care Team Providers Care Mud Jack Nozzle Worker Name Role Phone Yael Hammonds DO Primary Care Provider [phone] Allergies Active Allergy Reactions Criticality Noted Date Comments Dexbrompheniramine-Pseudoeph ed Sleep Disturbances 08/23/2017 Antihistamines - Alkylamine *Unknown 08/14/19 23 Dust Mites Other - Describe In Comment Field 08/30/2017 Pollen Extracts Runny Nose 11/01/2017 Medications multivitamin (MVI) tablet Take 1 tablet by mouth once daily. 0 08/24/19 18 Active fluticasone (50 mcg per actuation) nasal solution (FLONASE) Inhale 1 [place] into affected nostril(s) two times daily. 1 Bottle 03/13/20 18 Active cyanocobalamin (VITAMIN B12) 500 mcg tablet Take 500 mcg by mouth once daily. Active finasteride (PROSCAR) 5 mg tablet Take 5 mg by mouth once daily in the morning. 10/06/19 24 Active albuterol HFA (PRO-AIR; VENTOLIN; PROVENTIL) 90 mcg/actuation inhalerIndication s:Bronchospasm Inhale 2 Puffs by mouth every 6 hours if needed for Shortness Of Breath. 18 g 1 11/03/19 24 Active rivaroxaban (Xarelto) 20 mg tabletIndications :Paroxysmal atrial fibrillation (HC) Take 1 Tablet (20 mg) by mouth once daily with evening meal. 90 Tablet 3 01/25/20 24 Active pantoprazole (PROTONIX) 40 mg delayed-release tabletIndications :Chronic GERD Take 1 Tablet (40 mg) by mouth once daily. 90 Tablet 3 02/22/20 24 Active ipratropium (ATROVENT NASAL) 42 mcg (0.06 %) nasal spray Inhale 2 Sprays into affected nostril(s) once daily in the evening. Active spironolactone (ALDACTONE) 25 mg tabletIndications :Stress-induced cardiomyopathy Take *ONE-HALF* Tablet (12.5 mg) by mouth once daily in the evening. Take at bedtime 90 Tablet 3 4 2:27 PM SENIOR SECURITY ENGINEER 06/10/20 24 Active Additional Information Patient taking differently:12.5 mg OralBEDTIME, Informant: Patient's Recall, Reported on 12/27/2024 silodosin (RAPAFLO) 8 mg cap capsuleIndication s:Elevated PSA,Prostate cancer (HC) Take 1 Capsule (8 mg) by mouth once daily. 06/13/19 25 Active nitroglycerin 0.4 mg sublingual tabletIndications :ALANIZ (dyspnea on exertion) Place 1 Tablet (0.4 mg) under the tongue every 5 minutes if needed for Chest Pain (If requiring a 3rd tab, please call 911). 25 Tablet 2 09/25/19 25 Active metoprolol succinate 50 mg sustained-release tabletIndications :Hypertension,Cor onary artery disease, unspecified vessel or lesion type, unspecified whether angina present, unspecified whether [place] or transplanted heart Take 1 Tablet (50 mg) by mouth once daily. Reminder: Due for annual Cardiology appointment in July 2024. Please call [facility] two months prior at [phone] to schedule. 90 Tablet 10/08/19 25 Active atorvastatin 40 mg tabletIndications :Coronary artery disease involving [place] coronary artery of [place] heart without angina pectoris Take 1 Tablet (40 mg) by mouth at bedtime. 90 Tablet 2 11/08/19 25 Active acetaminophen SR (Tylenol Arthritis Pain) 650 mg Extended-Release tablet Take 650 mg by mouth two times daily. Max acetaminophen dose: 4000mg in 24 hrs. Active sacubitril-valsar silva (ENTRESTO 49 MG-51 MG TABLET) 49-51 mg tabletIndications :Chronic systolic heart failure (HC) Take 1 Tablet by mouth two times daily. 180 Tablet 3 01/05/20 25 Active clopidogreL (PLAVIX) 75 mg tabletIndications :NSTEMI (non-ST elevated myocardial infarction) (HC),Stress-induc ed cardiomyopathy Take 1 Tablet (75 mg) by mouth once daily. Take daily for 6 months then discontinue. 90 Tablet 1 4 11:12 AM SENIOR SECURITY ENGINEER 06/08/20 24 025 Discontin ued(*Med complete/ Regimen complete/ Level of care change) sacubitril-valsar silva 24-26 mg tabletIndications :Chronic systolic heart failure (HC) Take 1 Tablet by mouth two times daily. 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 Unstable angina 06/07/2024 Elevated PSA 11/03/2023 Prostate cancer 11/03/2023 Coronary artery disease of n ative artery of [place] heart with stable angina pectoris 09/07/2023 ALANIZ (dyspnea on exertion) 04/13/2022 Chronic obstructive pulmonary disease 09/18/2021 Paroxysmal atrial fibrillation 03/17/2021 Cardiac pacemaker 09/05/2020 HTN (hypertension) 09/05/2020 Acute external jugular vein thrombosis 9 Second degree AV block, Mobitz type II 9 Coronary artery disease involving [place] coronar y artery 09/05/2018 Intermittent second degree atrioventricular bloc k 09/05/2018 Resolved Problems Problem Noted Date Diagnosed Date Resolved Date Type 2 diabetes mellitus wit hout complication, without long-term current use of insulin 09/18/2021 09/18/2021 Subclavian vein thromboembolism, acute, left 9 06/20/2019 Anticoagulation monitoring, INR range 2-3 10/27/2018 04/25/2019 Coronary artery disease 09/05/2018 05/0 11/2018 Encounters Date Type Department Care Team Description 01/05/2025 Travel 01/03/2025 Telephone [facility] [place] [facility] [id number] [facility] [address] [place] [phone] Quentin Vincent MD Blood Pressure 12/27/2024 1:10 PM CDT Office Visit [facility] [place] [address] [place] [address] Yael Hammonds, Bleeding/Bruising (Has been noticing more easily bruising/unexplainable bruising) 12/27/2024 Travel 12/21/2024 2:00 PM CDT Office Visit [facility] [address] [place] [address] Quentin Vincent MD Follow Up (Follow up after pace maker placement ) 12/21/2024 Travel 12/18/2024 Travel 11/15/2024 10:25 AM CDT Office Visit [facility] [place] [address] [place] [address] Yael Hammonds, Immunization/Injection (knee injection) 11/15/2024 Travel 11/13/2024 Telephone [facility] [address] [facility] [address] [place] [address] Gilbert Oviedo MD Results (Venogram result) 11/12/2024 1:21 PM CDT Anesthesia Event [facility] [address] [place] [address] Esa Walls MD Chang, Pang Zong, CRNA 11/12/2024 8:08 AM CDT - 11/13/2024 3:47 PM CDT Hospital Encounter [facility] [address] [place] [address] Gilbert Oviedo MD Cardiac pacemaker; Stress-induced cardiomyopathy Discharge Disposition: Home Self Care 11/12/2024 Travel 11/07/2024 3:15 PM CDT Office Visit [facility] [address] [place] [address] Yael Hammonds DO Medicare ANNUAL (subsequent) Visit (83 year old; would like to talk about post nasal drip, most bothersome at night) 11/06/2024 Travel 10/23/2024 1:00 PM CDT Office Visit [facility] [address] [facility] [address] [place] [phone] Gilbert Oviedo MD CV Electrophysiology New (EP CONSULT REFERRED BY: Winston Lopez MD /DX: Cardiac pacemaker. Upgrade device. /) 10/23/2024 Telephone [facility] [address] [phone] Marie Soliman I, RN Device Check 10/23/2024 Travel 10/19/2024 Telephone [facility] [address] [place] [address] Winston Lopez MD Results 10/08/2024 Refill [facility] [address] [place] [address] Yael Hammonds DO Refill Request (ATORVASTATIN) from Last 3 Months Immunizations Immunization Administration Dates Next Due COVID-19 VACCINE SPIKEVAX [...] 07/14/2007 Pneumococcal conj 13-Valent (Prevnar 13) 05/04/2016 TD, UNSPECIFIED 11/25/2024 Td (Age >=7 Years) 09/27/2003,05/20/1997 Td, Preservative Free (age > = 7 [...] PHQ-2 Answer Date Recorded PHQ-2 TOTAL SCORE 2 11/07/2024 Social Connections Answer Date Recorded Do you often feel lonely or isolated from those around you? 0 06/07/2024 Financial Resource Strain Answer Date R ecorded Difficulty of Paying Living Expenses 3 09/07/2023 Difficulty of Paying Living Expenses Not on file 09/07/2023 Food Insecurity Answer Date Recorded Do you worry your food will run out before you are able to buy more? 1 06/07/2024 Transportation Needs Answer Date Record ed Does lack of transportation keep you from medica l appointments? 1 06/07/2024 Does lack of transportation keep you from work, meetings or getting things that you need? 1 06/07/2024 Housing Stability Answer Date Recorded What is your housing situation today? 1 06/07/2024 Interpersonal Safety Answer Date Record ed Are you being hit, kicked, p ushed or yelled at (see row info)? No 11/12/2024 Interpersonal Safety Abuse 12 - 18 Not on file 11/12/2024 Interpersonal Safety Ambulatory Vulnerability No t on file 11/12/2024 Utilities Answer Date Recorded Do you have trouble paying f or utilities (for example, heat, electricity, water, phone)? 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 Not on file Not on file Not on file semiprofessional musician Not on file Not on file No t on file Obstetrics History Last Filed Vital Signs Vital Sign Reading Time Taken Comments Blood Pressure 142/72 12/27/2024 1:58 PM CDT Man ual Pulse 72 12/27/2024 1:20 PM CDT Temperature 37.2 C (98.9 F) 11/13/2024 7:48 AM CDT Respiratory Rate 18 11/13/2024 7:48 AM CDT Oxygen Saturation 97% 12/21/2024 1:57 PM CDT Inhaled Oxygen Concentration - - Weight 95 kg (209 lb 6.4 oz) 12/27/2024 1:20 PM CDT Height 181.6 cm (5' 11.5) 11/12/2024 12:00 PM C DT Body Mass Index 28.8 11/12/2024 12:00 PM CDT Plan of Treatment Upcoming Encounters Date Type Department Care Team (Late st Contact Info) Description 01/10/2025 4:00 PM CDT [place] [facility] [place] [address] [place] [address] Annalisa Hernandez PA [address] [place] [address] 01/16/2025 1:30 PM CDT Orders Only [facility] [address] [facility] [place] [phone] Clare, Lucita 01/21/2025 1:30 PM CDT Appointment [facility] [address] [place] [address] 01/21/2025 1:30 PM CDT Appointment [facility]W Pacemaker MRI/CT [address] [place] [address] 02/12/2025 11:30 AM CDT Cardiac Device Check [facility] [place] [facility] [place] [address] [place] [phone] 02/13/2025 2:00 PM CDT Ancillary Procedure [facility] [place] [facility] [address] [place] [phone] Health Maintenance Due Date Last Done Comments RSV vaccine for adults or (1 - 1-dose 75+ series) 11/15/2015 COVID-19 vaccine series ( season) 2024 03/29/2024, 03/15/2023, 04/26/2022, Additional history exists Influenza Vaccine (#1) 2025 , 02/12/2021, 02/21/2018, Additional history exists BMI (ht and wt on same day) for age 18+ 11/07/2025 11/07/2024, 10/23/2024, 10/25/2022, Additional history exists Depression screening for age 12+ 11/07/2025 11/07/2024, 06/29/2024, 06/26/2024, Additional history exists Medicare Wellness for age 65+ 11/08/2025 11/07/2024, 11/03/2023, 10/12/2022, Additional history exists Tetanus booster 11/25/2034 11/25/2024, 10/11, 09/27/2003, Additional history exists Pneumococcal series for age 50+ Completed 05/04/2016, 07/14/2007 Zoster (shingles) series for age 50+ Completed 03/31/2020, 12/21/2019 Hepatitis B series for 19+ Aged Out N o longer eligible based on patient's age to complete this topic Medical Devices Implanted Type Area Mixing Technician Device Identifier Shelf Expiration Date Model / Serial / Lot Sleeve Silcn 1.00i.D.X2.1mm Od Sty70 [id number] [employer] - [id number] Implanted:Qty: 1 on 05/01/2020 by Quentin White MD at [facility] Left: Eye [employer] 08/01/2026 [id number]# / / [id number] Silcn 0.75x3.5x125 [id number] - [id number] Implanted:Qty: 1 on 05/01/2020 by Quentin White MD at [facility] Left: Eye [employer] 05/01/2026 [id number]# / / [id number] Procedures Procedure Name Priority Date/Time Associated Diagnosis Comments SCAN-CARDIAC STRIP 11/13/2024 8: 50 AM CDT PACER ANALYSIS MULTI CHAMBER WITHOUT REPROGRAM Routine 11/13/2024 8:30 AM CDT POTASSIUM CIRO 11/13/2024 7:35 AM CDT MAGNESIUM CIRO 11/13/2024 7:35 AM CDT XR CHEST 2 VIEWS PA AND LATERAL Routine 11/13/2024 7:19 AM CDT EKG 12 LEAD Early AM 11/13/2024 6:20 AM CDT SCAN-CARDIAC STRIP 11/13/2024 12 :19 AM CDT EP PPM Routine 11/12/2024 1:51 PM CDT EKG 12 LEAD Preop 11/12/2024 12:32 PM CDT BASIC METABOLIC PANEL Preop 11/12/2024 12:19 PM CDT CBC W PLT NO DIFF Preop 11/12/2024 12: 19 PM CDT MR CARDIAC WWO Routine 11/12/2024 11:05 AM CDT Stress-induced cardiomyopathy ISTAT CHEM 8 Timed 11/12/2024 9:37 AM CDT IR VENOGRAM MISC Routine 11/12/2024 8:19 AM CDT Cardiac pacemaker EKG 12 LEAD Routine 10/23/2024 12:52 PM CDT Paroxysmal atrial fibrillation (HC) from Last 3 Months Results * SCAN-CARDIAC STRIP (11/13/2024 8:50 AM CDT) us Scanner OTHER Final Result * PACER ANALYSIS MULTI CHAMBER WITHOUT REPROGRAM (11/13/2024 8:30 AM CDT) Narrative Lisha Jay MD - 11/13/2024 8:30 AM CDT Lisha Jay MD 11/13/2024 11:34 AM PACEMAKER EVALUATION REPORT November 13, 2024 Summary: Normal pacemaker function. Lead trends stable. No AT/AF detections. No VT detections. Last EF 27% per Echo on 08/10/2024. AP 20%, Total ADVERTISING ACCOUNT REPRESENTATIVE pacing 99.7% Effective 99.5%. Battery estimating initializing years remaining. Indication for Pacemaker: Complete Heart Block, RV pacing cardiomyopathy Primary MD: Yael Hammonds DO Primary Acquisition Lead: Dr. Vincent Implanting MD: Dr. Jay DEVICE DATA Mixing Technician Medtronic: Model Percepta MRI Quad CR [id number] Implant Date 11/12/2024 LEAD DATA Atrial Lead: Mixing Technician Medtronic: Model 5076 - 52 Implant Date 10/09/2018 RV Lead: Mixing Technician Medtronic: Model 5076 - 58 Implant Date 10/09/2018 LV Lead: Mixing Technician Medtronic: Model Attain Stability Quad MRI SureScan 4798-88 cm Implant Date 11/12/2024 Advisory: none Location of evaluation: [facility] [id number] Reason for evaluation: Routine POD#1- post BiV upgrade MEASUREMENTS Atrial Sensing - P wave: 1.9 - 2.1 mV Atrial Capture: 0.5 V @ 0.4 ms Atrial Lead Impedance: 418 ohms Ventricular Sensing - R wave: no R wave at VVI 30 bpm RV Capture: 0.5 V @ 0.4 ms LV Capture: 0.5 V @ 0.4 ms *No stim at 6 V Ventricular Lead Impedance: Right - 437 ohms Left - 532 ohms Underlying rhythm: Sinus at ~57 bpm with CHB, no R wave at VVI 30 bpm DIAGNOSTIC DATA - since 11/12/2024 Atrial paced: 20%, Total ADVERTISING ACCOUNT REPRESENTATIVE paced: 99.7% (BiV: 99.9%, LV: <0.1%) + 0.2 % from VSR Effective: 99.5% Atrial episodes (AF web alerts ON for >6 hours): none Associated symptoms: n/a Ventricular episodes (detects >150 bpm x 4 beats): none Associated symptoms: n/a Histogram: appropriate heart rate distribution Magnet rate: 85 bpm Battery voltage: 3.19 V Estimated battery longevity: Initializing FINAL PARAMETERS Mode: DDD Lower rate: 60 bpm Upper rate: 130/130 bpm AV Delay: Adaptive Bi-V 150-110 ms Mode Switch: 171 bpm Rate Response: off (L 3) Atrial - Amplitude: Adaptive 1.5 V Pulse width: 0.4 ms Sensitivity: 0.3 mV Refractory: Auto 250 ms Polarity: Bipolar Right Ventricular - Amplitude: Adaptive 2 V Pulse width: 0.4 ms Sensitivity: 0.9 mV Polarity: Bipolar Left Ventricular - Amplitude: Adaptive 2 V Pulse width: 0.4 ms Vector: LV2>>LV3 Changes made: Device temporarily reprogrammed, iterative adjustments made during interrogation/testing. No permanent changes made. Patient education post-device implant complete. Discussed incision care, signs and symptoms of infection, including redness, drainage, swelling, fever, and chills, & activity restrictions. Also discussed indication for implant and device mechanics. Education folder containing device booklet, ID card and incision care sheet was reviewed and given to patient to take home at discharge. Patient verbalized understanding the above and is agreeable with plan of care as described. Patient was given [facility] business card and encouraged to call if he has any concerns or questions in the future. Follow up: 3 mos clinic appointment provided for 02/12/2025. Pt will be using old home monitor. Routine follow up: Every 3-4 mos remote carelink with annual [place] each ~February. Scott Loomis, RN Nurse Clinician II [facility] Pacemaker/ICD Clinic [phone] Lisha Jay MD CARDIAC SERVICES ORD Merlyn l Result * POTASSIUM (11/13/2024 7:35 AM CDT) POTASSIUM 4.3 3.5 - 5.1 mmol/L 11/13/2024 8:[address] [facility] Blood BLOOD SPECIMEN / Unknown Venipuncture / Unknown 11/13/2024 7:35 AM CDT 11/13/2024 7:40 AM CDT Gilbert Oviedo MD CHEMISTRY Final Resu lt Performing Organization Address City/[facility]/ZIP Co de Phone Number [facility] [address] [place] [address], [place] * MAGNESIUM (11/13/2024 7:35 AM CDT) MAGNESIUM 1.8 1.6 - 2.4 mg/dL 11/13/2024 8:[address] [facility] Blood BLOOD SPECIMEN / Unknown Venipuncture / Unknown 11/13/2024 7:35 AM CDT 11/13/2024 7:40 AM CDT Gilbert Oviedo MD CHEMISTRY Final Resu lt Performing Organization Address [facility] Co de Phone Number [facility] [address] [place] [address], [place] * XR Chest PA and Lateral (11/13/2024 7:19 AM CDT) Anatomical Region Laterality Modality CHEST, THORAX, Lung, HEART Digit al Radiography 2024 4:13 AM CDT Impressions 2024 4:13 AM CDT Pacemaker placement, as above. No pneumothorax. Dictated by Kathy Page MD @ [place] 2024 4:13AM (Electronically Signed) [email or web address] Narrative 2024 4:13 AM CDT For Patients: As a result of the Century Cures Act, medical imaging exams and procedure reports are released immediately into your electronic medical record. You may view this report before your referring provider. If you have questions, please contact your health care provider. INDICATION: Post ICD TECHNIQUE: Chest 2 views. COMPARISON: Chest radiograph 04/23/2024. FINDINGS: Cardiovascular and mediastinum: Heart size is at the upper limits of normal, as before. Unremarkable mediastinum. Left chest wall pacemaker with leads in the right atrial appendage, right ventricle, and coronary sinus. Lungs and pleural spaces: Lungs are clear. No pneumothorax or pleural effusion. Bones and soft tissues: Mild degenerative disease of the spine. Procedure Note Kathy Page MD - 2024 For Patients: As a result of the Cures Act, medical imagingexams and procedure reports are released immediately into your electronicmedical record. You may view this report before your referring provider.If you have questions, please contact your health care provider. INDICATION: Post ICD TECHNIQUE: Chest 2 views. COMPARISON: Chest radiograph 04/23/2024. FINDINGS: Cardiovascular and mediastinum: Heart size is at the upper limits ofnormal, as before. Unremarkable mediastinum. Left chest wall pacemakerwith leads in the right atrial appendage, right ventricle, and coronarysinus. Lungs and pleural spaces: Lungs are clear. No pneumothorax or pleuraleffusion. Bones and soft tissues: Mild degenerative disease of the spine. IMPRESSION: Pacemaker placement, as above. No pneumothorax. Dictated by Kathy Page MD @ 2024 4:13AM (Electronically Signed) [email or web address] Lisha Jay MD GENERAL IMAGING Final Res ult * EKG 12-Lead - In AM (11/13/2024 6:20 AM CDT) Only the most recent of3 resultswithin the time period is included. Interpretation AV dual-paced rhythm with occasional ventricular-pa john complexes Abnormal ECG When compared with ECG of 12-Nov-2024 12:32, Electronic ventricular pacemaker has replaced Sinus rhythm BEYOND NOW Ventricular Rate 61 BPM BEYOND NOW Atrial Rate 61 BPM BEYOND NOW P-R Interval 180 ms BEYOND NOW QRS Duration 116 ms BEYOND NOW QT 456 ms BEYOND NOW QTc 459 ms BEYOND NOW P Anson 71 degrees BEYOND NOW R Anson 15 degrees BEYOND NOW T Anson 90 degrees BEYOND NOW 11/13/2024 6:20 AM CDT 11/13/2024 1:53 PM CDT us Lisha Jay MD EKG ORD Final Res ult BEYOND NOW [place], [place] * SCAN-CARDIAC STRIP (11/13/2024 12:19 AM CDT) us Scanner OTHER Final Result * EP PPM (11/12/2024 1:51 PM CDT) Anatomical Region Laterality Modality X-Ray Angiograph y 11/12/2024 1:51 PM CDT Narrative Transcriptions Lisha Jay MD - 11/12/2024 3:01 PM CDT [facility] [facility] Electrophysiology Implant Report Name: RODRIGO LORENZANA Event Date: 11/12/2024 [employer] ID #: [id number] Date: 1940 Gender: Male Age: 83 [facility] #: [id number] Procedure Performed By: LISHA JAY [facility] [place][Note 2] Referring Physician: Implant Procedure Type Bi-Ventricular Permanent Pacemaker Upgrade Summary / Conclusions PACEMAKER * Successful upgrade of dual chamber pacemaker to biventricular pacemaker(addition of coronary sinus lead and generator change). * Procedure completed without incident. * Appropriate device functionality observed at end of case. Pre-Operative Diagnosis ? 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 Same as Pre-operative diagnosis Indications ? Same as Pre-operative diagnosis Brief Patient History Rodrigo Lorenzana is an 83 y/o male with complete heart block s/p DDD PPM09/29, paroxysmal atrial fibrillation, a cardiomyopathy (LVEF 27%),coronary artery disease s/p PCI, hypertension and COPD. Since 06/05, reza had a decrement in his LVEF felt likely to be an RV pacingcardiomyopathy. After discussion regarding further treatment options, jennifer presents for an upgrade of his system to a resynchronizationpacemaker. Note that after discussion with his beading installer, Maricruz, they decided to proceed with a resynchronization pacemaker, asthere is hope for LVEF recovery, before consideration of aresynchronization defibrillator device. Consent & Bradford Protocol The risks, benefits, and alternatives of the procedure were discussed withthe patient and written informed consent was obtained. Procedure Description Rodrigo Lorenzana presented in sinus rhythm. The left shoulder was preppedand draped in the usual fashion. The left infraclavicular region wasanesthetized with local anesthesia. An incision was made below the leftclavicle at the level of the pre-existing header. The pocket looked goodwithout evidence of fibrosis. The left subclavian vein was cannulated overthe 1st rib and a guidewire was advanced under fluoroscopy to the level ofthe IVC. It was difficult to advance the guidewire, due to significantstenosis along the distal subclavian vein, but eventually achieved with ahydrophilic glidewire. A 9 Fr long CS sheath was placed over the second guidewire. It wasdifficult to cannulate the CS ostium due to tortuosity, but achieved witha STORQ wire and a Turimo sheath, after which a long CS sheath was able keyanna advanced. The sheath was advanced over the wire into the CS and thewire was removed. Contrast was injected into the sheath to verifyplacement into the CS. Contrast angiography of the CS was performed. Thisshowed a low posterolateral branch to be a suitable target (there was alsoa mid-lateral branch, which tapered early). A quadripolar active fixationlead was advanced into the low posterolateral branch over a coronary wire.Testing showed excellent sensing and capture at all four poles, withoutdiaphragmatic stimulation. The CS sheath was split and removed and thelead remained stable. The lead was sutured to the pre-pectoral fascia withnon-absorbable suture. The pre-existing RA and RV leads were tested and found to have stable, andacceptable, lead parameters. The pocket was checked for hemostasis and then copiously irrigated withantibiotic solution. The cardiac resynchronization therapy pacemaker wasattached to the leads and appropriate function of the leads/device wasverified through the device. The device was placed in an anti-microbialTYRX pouch. The pocket was closed in 3 layers with absorbable suture. Asterile dressing was placed across the incision. The entire system waschecked with fluoroscopy. All counts were correct. Mr Lorenzana toleratedthe procedure well and no complications were observed. Implantable Device Specifications Pulse Generator Detail Implanted Status Pocket Location Mixing Technician Model Serial Number 11/12/2024 Implanted Left Pectoral [employer] Percepta MRI Quad [id number] 10/09/2018 Explanted Left Pectoral [employer] [place] XT DR MRI [id number] Lead Detail Implanted Status Chamber Location Mixing Technician Model Serial Number 10/09/2018 Chronic Right Atrium Right Appendage [employer] [id number] [id number] 10/09/2018 Chronic Right Ventricle Septum [employer] CapSureFix [id number] 11/12/2024 Implanted Left Ventricle Left Lateral Wall [employer] AttainStability Quad MRI SureScan [id number] Measurement Tennis Net Maker P/R Wave (mV) Threshold (V) Pulse Width (msec) Resistance (ohms) High Output Stim Result RA 2 0.5 0.4 456 No Stimulation @ 10 V RV 0.75 0.4 437 No Stimulation @ 10 V LV/CS 0.5 0.4 570 No Stimulation @ 10 V Device Settings Mode Lower Rate (bpm) Upper Rate (bpm) DDD 60 130 SYDNI Delay: 100 msec PAV Delay: 130 msec Lead Amplitude (V) Pulse Width (msec) Sensitivity (mV) Configuration Atrial 1.5 0.4 0.3 Bipolar RV 2 0.4 0.9 Bipolar LV 1.5 0.4 LV 2 TO 3 Features Magnet Use: Enabled Wireless Telemetry: Active Feature Status Detail Mode Switch On @171bpm Other Settings On MRI Conditional Procedure(s) Performed ? Removal of PPM generator with replacement of PPM gen; multiple leadsystem ? LV Pacing lead insertion, attached to new PPM or ICD generator Procedure Detail Estimated Blood Loss: < 50 ml Specimen Collected: None Level of Sedation Achieved: Moderate Total Fluoro Time: 9.6 CASH PROCESSING SPECIALIST Total Fluoro Dose: 109 mGy Staff Name Role Lisha Jay Pool Hand Archana White RN Nurse Yael Guzmán EPT Perry Torres CVT Maternity Floor Supervisor Luis Aguiar CVT Maternity Floor Supervisor Medications Ordered and Administered Start Time Stop Time Medication Dose Units Route Ordered By Given By The anesthesia service monitored the patient?s conscious sedation duringthe procedure. The medications listed above were verbally ordered by me and read back tome as documented above. Refer to the hemodynamic procedure log report for additional casedetails. electronically signed on 11/12/2024 3:01:40 PM with status of Final Lisha Jay MD Implanting Acquisition Lead [facility] [address] [place] [address] (p) [phone](f) Lisha Jay MD CV IMAGING Edited Re sult - Final * CBC with Platelets no Differential (11/12/2024 12:19 PM CDT) WHITE BLOOD COUNT 7.3 4.5 - 11.0 thou/cu mm 11/12/2024 12:41 PM CDT [facility] RED BLOOD COUNT 5.14 4.30 - 5.90 mil/cu mm 11/12/2024 12:41 PM CDT [facility] HEMOGLOBIN 15.3 13.5 - 17.5 g/dL 11/12/2024 12:41 PM CDT [facility] HEMATOCRIT 45.1 37.0 - 53.0 % 11/12/2024 12:41 PM CDT [facility] MCV 88 80 - 100 fL 11/12/2024 12:41 PM CDT [facility] MCH 29.8 26.0 - 34.0 pg 11/12/2024 12:41 PM CDT [facility] MCHC 33.9 32.0 - 36.0 g/dL 11/12/2024 12:41 PM CDT [facility] RDW 13.7 11.5 - 15.5 % 11/12/2024 12:41 PM CDT [facility] PLATELET COUNT 170 140 - 440 thou/cu mm 11/12/2024 12:41 PM CDT [facility] MPV 10.6 6.5 - 11.0 fL 11/12/2024 12:41 PM CDT [facility] NRBC 0.0 % 11/12/2024 12:41 PM CDT [facility] ABS NRBC 0.0 thou /cu mm 11/12/2024 12:41 PM CDT [facility] Blood BLOOD SPECIMEN / Unknown Non-Lab Venipuncture / Unknown 11/12/2024 12:19 PM CDT 11/12/2024 12:25 PM CDT us Lisha Jay MD HEMATOLOGY Final Res ult [facility] [address] [place] [address], * (ABNORMAL) Basic Metabolic Panel (11/12/2024 12:19 PM CDT) SODIUM 140 136 - 145 mmol/L 11/12/2024 12:59 PM CDT [facility] POTASSIUM 4.2 3.5 - 5.1 mmol/L 11/12/2024 12:59 PM CDT [facility] CHLORIDE 104 98 - 107 mmol/L 11/12/2024 12:59 PM CDT [facility] CO2,TOTAL 24 22 - 29 mmol/L 11/12/2024 12:59 PM CDT [facility] ANION GAP 12 5 - 18 11/12/2024 12:59 PM CDT [facility] GLUCOSE 122(H) 70 - 99 mg/dL 11/12/2024 12:59 PM CDT [facility] CALCIUM 8.9 8.8 - 10.4 mg/dL 11/12/2024 12:59 PM CDT [facility] Comment: Reference ranges for this test were updated on 04/17/2024 to reflect our healthy population more accurately. Reference range changes are not retroactively applied to results, but previous results using the same methodology can be interpreted in the context of the new reference range. BUN 16 8 - 23 mg/dL 11/12/2024 12:59 PM CDT [facility] CREATININE 0.94 0.70 - 1.20 mg/dL 11/12/2024 12:59 PM CDT [facility] BUN/CREAT RATIO 17 10 - 20 12:59 PM CDT [facility] eGFR 80(L) >90 mL/min/1. 73m2 11/12/2024 12:59 PM CDT [facility] Comment:As of 2021, eG FR is calculated by the CKD-EPI creatinine equation without race adjustment. eGFR can be influenced by muscle mass, exercise, and diet. The reported eGFR is an estimation only and is only applicable if the renal function is stable. Blood BLOOD SPECIMEN / Unknown Non-Lab Venipuncture / Unknown 11/12/2024 12:19 PM CDT 11/12/2024 12:25 PM CDT Lisha Jay MD CHEMISTRY Final Res ult [facility] [address] [place] [address], * MR CARDIAC WWO (11/12/2024 11:05 AM CDT) Anatomical Region Laterality Modality HEART, THORAX Magnetic Resonan ce 11/12/2024 10:2 1 AM CDT Narrative 11/12/2024 11:17 AM CDT [facility] CMR Report Name: SALOMÓNRODRIGO Josiane : Scan Date: Accession Number: [id number] Status: Final Electronically signed by Gilbert Hoyos 11:17:02 VITALS ===== HEIGHT: 71 in (180 cm) WEIGHT: 205 lbs (93 kgs) BSA: 2.13 m^2 FINAL IMPRESSION ===== 1. Severe increase in LV volume. Severe global LV systolic dysfunction. Quantitative LVEF 22%. a) very dyssynchronous myocardial contraction pattern consistent with paced ventricular rhythm. b) nonspecific, nonischemic, linear, mid myocardial delayed enhancement involving the basal to mid interventricular septum. No evidence of myocardial infarction. c) no definitive etiology of cardiomyopathy identified on CMR. This may be RV pacing induced. 2. Normal RV volume. Mild RV systolic dysfunction. Quantitative RVEF 46 %. a) pacemaker wire present. COMMENTS: Patient ventricularly paced at 100 bpm during image acquisition. SUMMARY ===== LEFT VENTRICLE: Due to very prominent dyssynchrony, biplane method was used to determine LVEF. Evaluation of end-diastolic and end-systolic face was difficult based on short axis views. Severe increase in LV volume. Severe global LV systolic dysfunction. Quantitative LVEF 22%. RIGHT VENTRICLE: Normal RV volume. Mild RV systolic dysfunction. Quantitative RVEF 46 %. Pacemaker wire present. PERICARDIUM: There is no pericardial effusion. PLEURAL EFFUSION: There is no pleural effusion. Pacemaker generator artifact, left chest. AORTIC VALVE: Aortic valve is mildly thickened. MITRAL VALVE: Mitral valve is mildly thickened. AORTIC ROOT: The aortic root is normal. OTHER FINDINGS: High TI imaging: No microvascular obstruction or ventricular thrombus. T1 mapping: Normal ECV, 25%. Delayed enhancement imaging: Linear, nonischemic, mid myocardial delayed enhancement involving the basal to mid interventricular septum. No evidence of myocardial infarction. CORE EXAM ===== MEASUREMENTS ----- --- VOLUMETRIC ANALYSIS . . LV Reference RV Reference +-----+--------+-----+ +-----+ + EDV ml 304 157 ml/m^2 143 74 ESV ml 237 84 ml/m^2 111 39 CO SV ml 67 73 ml/m^2 31 34 EF % 22 46 '-----+--------+-----+ +-----+ ' EXTRACELLULAR VOLUME MEASUREMENT PRE-CONTRAST T1 MYOCARDIUM: 1031 msec ECV: 25 % SCAN INFO ===== GENERAL ----- --- SCANNER ERP ANALYST: SIEMENS MODEL: Aera CONTRAST AGENT TYPE: Gadavist GD CONCENTRATION: 1.0 M SETUP REFERRING PHYSICIAN: GILBERT OVIEDO ATTENDING PHYSICIAN: GILBERT OVIEDO BILLING ===== Patient Account [id number] ICD10 Codes I51.81 Report generated by [employer], a product of [employer] Procedure Note Gilbert Hoyos MD - 11/12/2024 [facility] CMR Report Name: RODRIGO LORENZANA : Scan Date: Accession Number: [id number] Status: Final Electronically signed by Gilbert Hoyos 11:17:02 VITALS ===== HEIGHT: 71 in (180 cm) WEIGHT: 205 lbs (93 kgs) BSA: 2.13 m^2 FINAL IMPRESSION ===== 1. Severe increase in LV volume. Severe global LV systolic dysfunction.Quantitative LVEF 22%. a) very dyssynchronous myocardial contraction pattern consistent withpaced ventricular rhythm. b) nonspecific, nonischemic, linear, mid myocardial delayedenhancement involving the basal to mid interventricular septum. No evidence of myocardial infarction. c) no definitive etiology of cardiomyopathy identified on CMR. Thismay be RV pacing induced. 2. Normal RV volume. Mild RV systolic dysfunction. Quantitative RVEF 46%. a) pacemaker wire present. COMMENTS: Patient ventricularly paced at 100 bpm during image acquisition. SUMMARY ===== LEFT VENTRICLE: Due to very prominent dyssynchrony, biplane method wasused to determine LVEF.Evaluation of end-diastolic and end-systolic face was difficult based on short axis views.Severeincrease in LV volume. Severe global LV systolic dysfunction. Quantitative LVEF 22%. RIGHT VENTRICLE: Normal RV volume. Mild RV systolic dysfunction.Quantitative RVEF 46 %. Pacemaker wire present. PERICARDIUM: There is no pericardial effusion. PLEURAL EFFUSION: There is no pleural effusion. Pacemaker generatorartifact, left chest. AORTIC VALVE: Aortic valve is mildly thickened. MITRAL VALVE: Mitral valve is mildly thickened. AORTIC ROOT: The aortic root is normal. OTHER FINDINGS: High TI imaging: No microvascular obstruction orventricular thrombus. T1 mapping: Normal ECV, 25%. Delayed enhancement imaging: Linear, nonischemic, mid myocardial delayedenhancement involving the basal to mid interventricular septum. No evidence of myocardial infarction. CORE EXAM ===== MEASUREMENTS ----- --- VOLUMETRIC ANALYSIS . . LV Reference RV Reference +-----+--------+-----+ +-----+ + EDV ml 304 157 ml/m^2 143 74 ESV ml 237 84 ml/m^2 111 39 CO SV ml 67 73 ml/m^2 31 34 EF % 22 46 '-----+--------+-----+ +-----+ ' EXTRACELLULAR VOLUME MEASUREMENT PRE-CONTRAST T1 MYOCARDIUM: 1031 msec ECV: 25 % SCAN INFO ===== GENERAL ----- --- SCANNER ERP ANALYST: SIEMENS MODEL: Aera CONTRAST AGENT TYPE: Gadavist GD CONCENTRATION: 1.0 M SETUP REFERRING PHYSICIAN: GILBERT OVIEDO ATTENDING PHYSICIAN: GILBERT OVIEDO BILLING ===== Patient Account [id number] ICD10 Codes I51.81 Report generated by [employer], a product of [employer] Myngle Hoa Bernal NP MR Final Resul t * ISTAT CHEM 8 (11/12/2024 9:37 AM CDT) [facility] SODIUM, POCT 11/12/2024 9:44 AM CDT [facility] Comment:Unable to determine. POTASSIUM, POCT 11/12/2024 9:44 AM CDT [facility] Comment:Unable to determine. CHLORIDE, POCT 11/12/2024 9:44 AM CDT [facility] Comment:Unable to determine. CO2,TOTAL, POCT 11/12/2024 9:44 AM CDT [facility] Comment:Unable to determine. ANION GAP, POCT 11/12/2024 9:44 AM CDT [facility] Comment:Unable to calculate. GLUCOSE, POCT 11/12/2024 9:44 AM CDT [facility] Comment:Unable to determine. IONIZED CALCIUM, POCT 11/12/2024 9:44 AM CDT [facility] Comment:Unable to determine. BUN, POCT 11/12/2024 9:44 AM CDT [facility] Comment:Unable to determine. CREATININE, POCT 11/12/2024 9:44 AM CDT [facility] Comment:Unable to determine. BUN/CREAT RATIO, POCT 11/12/2024 9:44 AM CDT [facility] Comment:Unable to calculate. eGFR 11/12/2024 9:44 AM CDT [facility] Comment:Unable to calculate. HEMATOCRIT, POCT 47.0 37.0 - 53.0 % 11/12/2024 9:44 AM CDT [facility] HEMOGLOBIN, POCT 16.0 13.5 - 17.5 g/dL 11/12/2024 9:44 AM CDT [facility] Blood BLOOD SPECIMEN / Unknown 11/12/2024 9:37 AM CDT 11/12/2024 9:44 AM CDT us Gilbert Oviedo MD CHEMISTRY Final Resu lt [facility] [address] [place] [address], [place] * IR VENOGRAM MISC (11/12/2024 8:19 AM CDT) Anatomical Region Laterality Modality X-Ray Angiograph y Narrative 11/12/2024 4:59 PM CDT Procedure: left upper extremity/central venogram Indication: preoperative planing for possible pacemaker revision. Interventionalist: Manpreet Williamson MD Fluoroscopy time: 10 seconds. Reference air kerma: 18 mGy. Contrast: 15 mL Estimated Blood Loss: <10 mL Technique: The patient was placed supine on the fluoroscopy table. Intravenous access was placed in the left upper extremity. A left upper extremity venogram was performed. The patient tolerated the procedure well and was transferred to the recovery room without immediate post-procedure complication. Findings: Left axillary vein is patent. 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 Brachiocephalic vein is patent. The SVC is poorly opacified but appears patent. 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 Poor opacification of SVC. Limited view appears patent. Gilbert Oviedo MD IR Final Resu lt from Last [address] [place] [address] MEDICARE PB ONLY MEDICARE PART B HB ONLY MEDICARE PART A HB ONLY Advance Directives * Full Code (Latest Code Status on File) Date Activated Date Inactivated Comments 11/12/2024 2:53 PM 11/13/2024 5:47 PM Question Answer Comments Code Status Discussion: Other * Full Code Date Activated Date Inactivated Comments 06/07/2024 1:05 AM 06/10/2024 6:30 PM Question Answer Comments Code Status Discussion: Reviewed Preferences * Full Code Date Activated Date Inactivated Comments 05/01/2020 6:55 AM 05/01/2020 12:33 PM Question Answer Comments Code Status Discussion: Not Discussed * Full Code Date Activated Date Inactivated Comments 10/09/2018 4:21 PM 10/10/2018 11:52 AM Care Teams Mud Jack Nozzle Worker Relationship Specialty Start Date End Date Yael [place] [place] [address] PCP - General Family Practice 10/14/23
[2025-01-07 09:16] VITALS: BP 170/77; PULSE 83; RESP 18; TEMP 37.1; O2SAT 97; BMI 29.1
--- OUTSIDE RECORDS SUMMARY | 2025-01-07 09:16 | XMS_ITS | Clinical Summary ---
Author Organization [facility] Address [address] [place] [address] Care Team Providers Care Screen Printing Stencil Preparer Name Role Phone Elsewhere, Pcp Primary Care Provider Unavailabl e Source Comments Patient records contain information from all sites at [facility]. For routine questions regarding patient records, call [phone] during business hours, M-F 8:00 AM - 5:00 PM Central Time. Record requests for emergency care only can be directed to [phone] at any time.[facility] Allergies No known active allergies Medications atorvastatin (Lipitor) 20 mg tablet Take 20 mg by mouth at bedtime. 12/19/2023 Active clopidogreL (Plavix) 75 mg tablet Take 75 mg by mouth daily. 06/08/2024 Active finasteride (Proscar) 5 mg tablet Take 5 mg by mouth daily. 10/06/2023 Active losartan (Cozaar) 25 mg tablet Take 12.5 mg by mouth daily. 06/10/2024 Active metoprolol succinate (Toprol XL) 50 mg 24 hr tablet Take 50 mg by mouth daily. 04/02/2024 Active pantoprazole (Protonix) 40 mg EC tablet Take 1 tablet by mouth daily. 02/22/2024 Active rivaroxaban (Xarelto) 20 mg tablet Take 1 tablet by mouth daily with evening meal. 01/25/2024 Active silodosin (Rapaflo) 8 mg capsule Take 8 mg by mouth daily. 06/13/2024 Active spironolactone (Aldactone) 25 mg tablet Take 12.5 mg by mouth daily. 06/10/2024 Active Social History Tobacco Use Types Packs/Day Years Used Date Smoking Tobacco: Never Smokeless Tobacco: Never Tobacco Cessation:Counseling Given: Not Answered Alcohol Use Standard Drinks/Week Comments Never 0 (1 standard drink = 0.6 oz pur e alcohol) Sex and Gender Information Value Date Recorded Sex Assigned at Not on file Legal Sex Male 6:08 PM TEMPLATE LAYOUT WORKER Gender Identity Not on file Sexual Orientation Not on file Last Filed Vital Signs Vital Sign Reading Time Taken Comments Blood Pressure 121/66 06/13/2024 12:30 PM TEMPLATE LAYOUT WORKER Pulse 79 06/13/2024 12:30 PM TEMPLATE LAYOUT WORKER Temperature 36.5 C (97.7 F) 06/12/2024 7:50 PM TEMPLATE LAYOUT WORKER Respiratory Rate 24 06/13/2024 12:30 PM TEMPLATE LAYOUT WORKER Oxygen Saturation 93% 06/13/2024 12:30 PM TEMPLATE LAYOUT WORKER Inhaled Oxygen Concentration - - Weight 91.4 kg (201 lb 9.6 oz) 06/12/2024 9:38 P M TEMPLATE LAYOUT WORKER Height - - Body Mass Index - - Plan of Treatment Health Maintenance Due Date Last Done Comments RSV vaccine - (32-36 weeks) or 60+ years (1 - 1-dose 75+ series) 11/15/2015 DTaP,Tdap,and Td Vaccines (2 - Td or Tdap) 10/24/2023 10/23/2013, 09/27/2003, 05/20/1997 Depression Screening (Annual PHQ-2) 06/13/2024 Fall Risk Screen (Annual) 06/13/2024 COVID-19 Vaccine ( season) 2024 03/29/2024, 04/26/2022, 10/05/2021, Additional history exists Influenza Vaccine (#1) 2025 , 04/09/2022, 02/12/2021, Additional history exists Creatinine Level (Kidney Function Test) 06/12/2025 06/12/2024, 06/09/2024, 06/08/2024, Additional history exists Potassium Level 06/12/2025 06/12/2024, 05/14, 06/09/2024, Additional history exists Sodium Level 06/12/2025 06/12/2024, 05/14, 06/08/2024, Additional history exists Pneumococcal vaccine (50+ years) Completed 05/04/2016, 07/14/2007 Zoster Vaccines Completed 03/31/2020, 12/21/2019 IPV Vaccines Aged Out No longer eligi ble based on patient's age to complete this topic Procedures Procedure Name Priority Date/Time Associated Diagnosis Comments BASIC METABOLIC PANEL, S/P STAT 06/12/2024 5:12 PM TEMPLATE LAYOUT WORKER from Last 3 Months or Most Recently Relevant to Health Maintenance Results * Basic Metabolic Panel (06/12/2024 5:12 PM TEMPLATE LAYOUT WORKER) Potassium, P 4.6 3.6 - 5.2 mmol/L 06/12/2024 5:33 PM TEMPLATE LAYOUT WORKER ST[facility] Sodium, P 138 135 - 145 mmol/L 06/12/2024 5:33 PM TEMPLATE LAYOUT WORKER ST[facility] Chloride, P 103 98 - 107 mmol/L 06/12/2024 5:33 PM TEMPLATE LAYOUT WORKER ST[facility] Bicarbonate, P 25 22 - 29 mmol/L 06/12/2024 5:33 PM TEMPLATE LAYOUT WORKER [facility] Anion Gap, P 10 7 - 15 06/12/2024 5:33 PM TEMPLATE LAYOUT WORKER [facility] BUN (Blood Urea Nitrogen), P 22 8 - 24 mg/dL 06/12/2024 5:33 PM TEMPLATE LAYOUT WORKER ST[facility] Creatinine 1.02 0.74 - 1.35 mg/dL 06/12/2024 5:33 PM TEMPLATE LAYOUT WORKER [facility] Estimated GFR (eGFR) 73 >=60 mL/min/BSA 06/12/2024 5:33 PM TEMPLATE LAYOUT WORKER [facility] Comment: Estimated GFR calculated using the 2020 CKD_EPI creatinine equation. Calcium, Total, P 9.0 8.8 - 10.2 mg/dL 06/12/2024 5:33 PM TEMPLATE LAYOUT WORKER [facility] Glucose, P 135 70 - 140 mg/dL 06/12/2024 5:33 PM TEMPLATE LAYOUT WORKER [facility] Blood (Blood, Venous) 06/12/2024 5:12 PM TEMPLATE LAYOUT WORKER 06/12/2024 5:16 PM TEMPLATE LAYOUT WORKER Yael Rankin D.O., M.H.A. LAB BLOOD ADD-ON Final Result [facility] [employer] [facility] [address] [place] [address], [facility] [address] [place] [address] from Last 3 Months or Most Recently Relevant to Health Maintenance Insurance MEDICARE [facility] Care Teams Screen Printing Stencil Preparer Relationship Specialty Start Date End Date Elsewhere, Pcp PCP - General Internal Medicine 06/12/24
--- NOTE | 2025-01-07 09:25 | ED.GENADULT ---
HPI - General Adult General Time Seen by Provider: 09:25 Date Seen: 01/07/25 Chief complaint: Dizziness/Vertigo Stated complaint: Feeling dizzy- had a new peace maker in November Time Seen by Provider: 01/07/25 09:19 Source: patient, RN notes reviewed and old records reviewed Mode of arrival: ambulatory Limitations: no limitations History of Present Illness HPI narrative: This 84-year-old male is ambulatory into the ED of his own accord with an episode of dizziness this morning. Was sitting at the computer when all of the sudden he felt like he was going to fall over sideways. He did not feel presyncopal like he was going to pass out or like the room was spinning. He just felt sudden sense potentially falling over. It lasted about 10 seconds. He never noted any issues with his speech, arms or legs working after that. He actually drove himself here. He notes this past week his blood pressures been elevated. He sock Cardiology recently and the increased his Entresto. His pharmacy did not have it so he has been off of it, he believes the pharmacy may have it in today. He notes no visual changes, no speech issues, no issues with function eating of his arms or legs at this time. He states since this spell happened he just maybe feels a little off, a little lightheaded. Does not have sense of chest pain, shortness of breath. He had his pacemaker replaced in November. Patient is chronically anticoagulated with Xarelto. Related Data Home Medications ?Medication ?Instructions ?Recorded ?Confirmed amlodipine 5 mg tablet 5 mg 08/13/22 11/30/23 atorvastatin 20 mg tablet 20 mg 08/13/22 11/30/23 ipratropium bromide 21 mcg (0.03 2 spray intranasal 08/13/22 11/30/23 %) nasal spray metoprolol succinate 50 mg 50 mg PO 08/13/22 11/30/23 tablet,extended release 24 hr pantoprazole 40 mg tablet,delayed 40 mg PO 08/13/22 11/30/23 release rivaroxaban 20 mg tablet (Xarelto) 20 mg 08/13/22 11/30/23 simvastatin 20 mg tablet 20 mg 08/13/22 11/30/23 valsartan 80 1 tab 08/13/22 11/30/23 mg-hydrochlorothiazide 12.5 mg tablet silodosin 8 mg capsule 8 mg PO DAILY 11/30/23 06/06/24 Allergies Allergy/AdvReac Type Severity Reaction Status Date / Time Antihistamines - Alkylamine Allergy Verified 01/07/25 13:42 Review of Systems Status of ROS: Reports: 6 or more systems reviewed and unremarkable except as noted in History and below [facility] Medical History (Updated 01/07/25 @ 14:16 by Estelita Lobato MD) Prostate cancer ?C61 - Malignant neoplasm of prostate (ICD-10) Stress-induced cardiomyopathy ?I51.81 - Takotsubo syndrome (ICD-10) Hypertension ?I10 - Essential (primary) hypertension (ICD-10) Cardiac pacemaker ?Z95.0 - Presence of cardiac pacemaker (ICD-10) Coronary artery disease involving [place] coronary artery ?I25.10 - Atherosclerotic heart disease of [place] coronary artery without angina pectoris (ICD-10) Second degree AV block, Mobitz type I ?I44.1 - Atrioventricular block, second degree (ICD-10) Acute external jugular vein thrombosis ?I82.890 - Acute embolism and thrombosis of other specified veins (ICD-10) Paroxysmal atrial fibrillation ?I48.0 - Paroxysmal atrial fibrillation (ICD-10) Surgical History (Updated 01/07/25 @ 09:47 by Estelita Lobato MD) History of coronary artery stent placement ?Z95.5 - Presence of coronary angioplasty implant and graft (ICD-10) Status post laparoscopic herniorrhaphy ?Z98.890 - Other specified postprocedural states (ICD-10) ?Z87.19 - Personal history of other diseases of the digestive system (ICD-10) History of scleral buckling with vitrectomy ?Z98.890 - Other specified postprocedural states (ICD-10) Status post cholecystectomy ?Z90.49 - Acquired absence of other specified parts of digestive tract (ICD-10) Status post appendectomy ?Z90.49 - Acquired absence of other specified parts of digestive tract (ICD-10) Social History Smoking Status: Never smoker Do you use any of these nicotine containing products: None Second hand tobacco smoke exposure: No How often do you have a drink containing alcohol: 2-4 times a month How often do you have six or more drinks on one occasion: Never AUDIT-C Alcohol total score: 2 Non-prescribed substance use: denies use service: No Exam Const: Vital Signs, click to edit/add: Vital Signs - 24 hr 01/07/25 09:16 01/07/25 09:33 01/07/25 11:30 Temperature 98.7 F Pulse Rate [Right Pulse Oximeter] 83 Respiratory Rate 18 Blood Pressure [Ri ght Upper Arm] 170/77 H 167/91 H Pulse Oximetry 97 95 Oxygen Delivery Me thod Room Air 01/07/25 11:59 Temperature Pulse Rate [Right Pulse Oximeter] 60 Respiratory Rate 16 Blood Pressure [Ri ght Upper Arm] Pulse Oximetry 97 Oxygen Delivery Me thod Room Air Rodrigo is an 84-year-old male that is alert, interactive, no apparent distress. He is standing in the room when I come in, he was ambulatory into the ED of his own accord. Pupils equal round reactive to light, sclera clear, extraocular muscles intact, no visual field cuts and gross confrontation. Symmetrical facial function, speech normal. Neck is supple, no adenopathy, no thyromegaly masses or nodules, no jugular venous distension. Lungs are clear, good air entry, no wheezing or crackles, no tachypnea. CV regular rate and rhythm, no murmur, normal S1-S2, no S3-S4. He has pacemaker in his left upper chest wall, scar is well healed. Arm and leg motor functions symmetrical, 5/5 and symmetric. No tremor, no dysmetria noted. Documenting provider has reviewed patient's vital signs: yes Course Course ED Course: Patient will have an EKG updated, will have him on cardiac monitoring and pulse oximetry to ensure no hypoxia or malfunction/arrhythmia with his underlying pacemaker. Have reviewed with him that I cannot interrogate his pacemaker here but we can see with the rhythm is currently and make sure it is functioning. Will do full complement of labs including troponin. Will do head CT noncontrast just to ensure no nontraumatic brain bleed. He is asymptomatic at this time. Did his blood pressure has been notably elevated as he is been out of the Entresto. We do not carry his increased dose of the 49/51 Entresto. Neurologic changes such with TIA only lasting 10 seconds I suppose are possible in the head CT will be done. May need to talk to Cardiology and/or Neurology at some point regarding this patient. Reevaluation(s) Time of Reevaluation #1: 11:30 Reevaluation #1: Patient is feeling fine, no recurrence of symptoms. He notes since his upgraded pacemaker that he has been feeling much better, his activity tolerance has increased. We are waiting his portable chest x-ray. His head CT is showing no evidence of acute stroke or brain bleed. He does have complex heart disease. His proBNP is at 1000 but he does not have any clinical evidence of decompensated heart failure. Awaiting chest x-ray. He really does need to be on the Entresto, he states he is supposed to get it today. Time of Reevaluation #2: 14:11 Reevaluation #2: Have reviewed patient's CT angiogram prelim report. There is no concerning blockages. He understands there will be a formal over-read by Neuro Radiology. With there being no significant blockages seen, makes it less likely to be a neurogenic origin. Again, a spell of 10 seconds with no further issues is quite difficult to sort out. He has remained asymptomatic. Consultations Consultation #1: Did run this case by Dr. Welch from stroke Neurology. He did request that we do CT angiograms. He agrees that a 12nd episode of 1 time is going to be extremely difficult to figure out. He agrees that if patient is having further episodes, further workup including consideration of underlying arrhythmia may need to happen. Time: 11:37 Vital Signs Vital signs: Initial Vital Signs Temperature 98.7 F 01/07/25 09:16 Temperature Source Temporal Artery Scan 01/07/25 09:16 Pulse Rate 83 01/07/25 09:16 Pulse Rhythm Regular 01/07/25 09:16 Pulse Strength 3+ Normal 01/07/25 09:16 Respiratory Rate 18 01/07/25 09:16 Blood Pressure 170/77 H 01/07/25 09:16 Blood Pressure Mean 108 H 01/07/25 09:16 Blood Pressure Position Sitting 01/07/25 09:16 Pulse Oximetry 97 01/07/25 09:16 Oxygen Delivery Method Room Air 01/07/25 09:16 Vital Signs Temperature 98.7 F 01/07/25 09:16 Pulse Rate 83 01/07/25 09:16 Respiratory Rate 18 01/07/25 09:16 Blood Pressure 170/77 H 01/07/25 09:16 Pulse Oximetry 97 01/07/25 09:16 Oxygen Delivery Method Room Air 01/07/25 09:16 Temperature 98.7 F 01/07/25 09:16 Pulse Rate 60 01/07/25 11:59 Respiratory Rate 16 01/07/25 11:59 Blood Pressure 167/91 H 01/07/25 11:30 Pulse Oximetry 97 01/07/25 11:59 Oxygen Delivery Method Room Air 01/07/25 11:59 Medical Decision Making Medical Records Medical records reviewed: Yes I reviewed the patient's medical records Medical records narrative: Coronary angiogram 06/07/2024 DIAGNOSTIC SUMMARY The LMCA is free of significant disease. 40% stenosis in the Mid LAD (iFR 0.79, FFR 0.77 - iFR pullback indicates diffuse rather than focal CAD ? favor GDMT) 70% stenosis in the 1st Diagonal (small, iFR 0.85, FFR 0.84) (small vessel, favor GDMT) The Circumflex is non-dominant and is free of significant disease. The RCA is dominant and is free of significant disease. ? Echo 06/08/2024 Final Impressions: 1. Echo contrast was administered to enhance visualization of all left ventricular segments. 2. Mildly increased LV size, normal wall thickness, severely reduced global systolic function with an estimated EF of 20%. 3. Akinesis of the inferior wall, inferoseptum, and mid inferolateral wall. Hypokinesis of remaining wall segments. 4. Right ventricular cavity size is normal, global systolic RV function is normal. 5. No significant valve disease detected. Comparison Compared to prior exam of 07/25/2020: Left ventricular size has increased. There has been marked reduction in left ventricular systolic function. ? Echo 08/10/2024 Final Impressions: 1. Mild to moderately increased left ventricular size, mildly increased wall thickness, moderately severely reduced global systolic function, calculated EF of 27 %. 2. Echo contrast was administered to enhance visualization of all left ventricular segments. 3. Right ventricular cavity size is normal, global systolic RV function is normal. 4. Mildly enlarged left atrium. 5. The aortic valve is sclerotic, no stenosis and trivial regurgitation. 6. The mitral valve is sclerotic and tethered, mild to moderate mitral regurgitation. 7. Tricuspid valve is normal and mild tricuspid regurgitation. 8. No pericardial effusion. ? Cardiac MRI 11/12/2024 1. Severe increase in LV volume. Severe global LV systolic dysfunction. Quantitative LVEF 22%. a) very dyssynchronous myocardial contraction pattern consistent with paced ventricular rhythm. b) nonspecific, nonischemic, linear, mid myocardial delayed enhancement involving the basal to mid interventricular septum. No evidence of myocardial infarction. c) no definitive etiology of cardiomyopathy identified on CMR. This may be RV pacing induced. 2. Normal RV volume. Mild RV systolic dysfunction. Quantitative RVEF 46 %. a) pacemaker wire present. ? Impression and Plan: Nonischemic cardiomyopathy RV pacer mediated cardiomyopathy S/p [employer]-P Hypertension - symptomatically improving - BP goal <130/80, today's reading appears an outlier relative to trend; advised on home monitoring and to call if persistently above goal with plan to uptitrate sacubitril-valsartan - continue metoprolol 50 mg daily, sacubitril-valsartan 24-26 bid, and spironolactone 12.5 mg daily - low threshold to consider SGLT2i (previously orthostatic) - repeat echo 3 months from [employer]-P ? CAD S/p PCI Hyperlipidemia - stop clopidogrel given stable CAD and on anticoagulation - continue atorvastatin, LDL at goal <70 ? Paroxysmal atrial fibrillation - low burden on device interrogations - asymptomatic - continue rivaroxaban Lab Data Lab results reviewed: Yes I reviewed the patient's lab results Labs: Lab Results 01/07/25 01/07/25 Range/Units 09:40 09:51 WBC 5.33 (4.50-11.00) K/uL RBC 4.96 (4.30-5.90) m/uL Hgb 14.6 (13.5-17.5) gm/dL Hct 43.3 (37.0-53.0) % MCV 87 (80-100) fL MCH 29 (26-34) pg MCHC 34 (32-36) gm/dL RDW Coeff of [place] 13.2 (11.5-15.5) % Plt Count 185 (140-440) K/uL Neut % (Auto) 74.3 H (42.0-72.0) % Lymph % (Auto) 11.8 L (20-44) % Sampson % (Auto) 9.9 (0.0-11.0) % Eos % (Auto) 3.2 (0.0-7.0) % Baso % (Auto) 0.6 (0.0-3.0) % Neut # (Auto) 4.00 (1.7-7.0) K/uL Lymph # (Auto) 0.60 L (0.90-2.90) K/uL Sampson # (Auto) 0.50 (0.00-0.90) K/UL Eos # (Auto) 0.17 (0.00-0.50) K/uL Baso # (Auto) 0.03 (0.00-0.30) K/uL Abs Immat Gran (auto) 0.01 (0.00-0.30) K/uL Imm/Tot Granulo (auto) 0.2 % Sodium 137 (135-149) mmol/L Potassium 3.9 (3.6-5.1) mmol/L Chloride 106 (96-114) mmol/L Carbon Dioxide 24 (20-32) mmol/L Anion Gap 7 (7-15) mEq/L BUN 16 (7-30) mg/dL Creatinine 0.7 (0.5-1.5) mg/dL Estimated Creat Clear 58.57 Estimated GFR 91 ml/min Glucose 150 H (60-115) mg/dL Calcium 8.8 (8.4-10.6) mg/dL Magnesium 1.8 (1.5-2.6) mg/dL Total Bilirubin 0.9 (0.1-1.5) mg/dL AST 31 (12-35) U/L ALT 30 (4-50) U/L Alkaline Phosphatase 103 (40-150) U/L Troponin I < 0.01 (0.01-0.04) ng/mL NT-Pro-B Natriuret Pep 1090 H (See Note) pg/mL Total Protein 6.1 (6.0-8.3) g/dL Albumin 3.8 (3.3-5.0) g/dL POC Troponin I 0.00 L (0.01-0.04) ng/ml Imaging Data CT scan - head: Attestation: I have reviewed the pertinent imaging results. Radiologist's impression: Patient: RODRIGO LORENZANA Facility:[facility] Patient ID:?[id number] Site Patient ID:?[id number]. Site :?[id number] Study:?CT-Head WITHOUT-01/07/2025 10:01:35 AM Ordering Physician:Bibiana Capone Final Report: INDICATION: Dizziness TECHNIQUE: CT head without contrast. COMPARISON: None. FINDINGS: CSF spaces: Within normal limits for age. Brain parenchyma: The aviles-white differentiation is normal. No sign of mass, hemorrhage, or midline shift. Small low density within the deep white matter. Skull base and calvarium: Mild mucosal thickening paranasal sinuses. The visualized orbits are grossly unremarkable. No skull fractures. Right temporomandibular joint osteoarthritis. Atherosclerosis. IMPRESSION: 1. No intracranial bleed or mass effect. 2. Mild nonspecific white matter disease, likely microangiopathy. Please note that all CT scans at this facility use dose modulation, iterative reconstruction, and/or weight-based dosing when appropriate to reduce radiation dose to as low as reasonably achievable. Dictated by Doug Kwong MD @ 01/07/2025 10:36:02 AM (Electronic Signature) Chest x-ray: Attestation: I have reviewed the pertinent imaging results. My impression: I do not appreciate any evidence of any acute CHF. Radiologist's impression: Patient: RODRIGO LORENZANA Facility:?[facility] Patient ID:?[id number] Site Patient ID:?[id number]. Site :?[id number] Study:?XRay-Chest Portable one view-01/07/2025 11:33:25 AM Ordering Physician:Bibiana Capone Final Report: INDICATION: : DIZZINESS COMPARISON: Chest radiograph from June 06, 2024 TECHNIQUE: One view(s) of the chest FINDINGS: Three lead left chest wall ICD. The cardiomediastinal silhouette and pulmonary vasculature are unremarkable. There is no focal airspace consolidation, pleural effusion, or pneumothorax. No displaced fractures. IMPRESSION: No acute cardiopulmonary process. Dictated by Dave Ang MD @ 01/07/2025 12:05:15 PM (Electronic Signature) CT- Other: Attestation: I have reviewed the pertinent imaging results. Radiologist's impression: Patient: RODRIGO LORENZANA Facility:?[facility] Patient ID:?[id number] Site Patient ID:?[id number]. Site :?1940 Study:?CT-Neck Angio Angio 95CC ISOVUE 370 NON ACUTE-01/07/2025 1:26:02 PM Ordering Physician:?Luis Alfredo Capone Preliminary Report: Findings: INTRACRANIAL ANGIOGRAM: Anterior circulation: No flow-limiting stenosis or aneurysm. Mild calcification of the cavernous portions of the bilateral internal carotid arteries. Posterior circulation: No flow-limiting stenosis or aneurysm. Dural venous sinuses: Patent. Additional comment: None. EXTRACRANIAL ANGIOGRAM: Proximal great vessels: No flow-limiting stenosis or dissection. Mild aortic calcification. Cervical vessels: No flow-limiting stenosis or dissection. Mild calcification of the bilateral carotid bifurcations. Additional comment: None. NECK: Soft tissues: Normal. Bones: Moderate degenerative changes of the visualized spine. Lung apices: Clear. Additional comment: Left chest pacemaker with associated leads. Impression: No flow-limiting stenosis, occlusion or aneurysm in the intracranial and extracranial circulations. Dictated by Winston Street MD @ 01/07/2025 1:53:29 PM Read by:?Winston Street MD @01/07/2025 1:53:36 PM ECG Data Attestation: I personally reviewed and interpreted this ECG as follows: (Paced rhythm, 70 beats per minute.) Prior ECG tracings: not available for review Discharge Plan Discharge Clinical Impression: Dizziness Patient Disposition: Home, Self-Care Condition: Stable Instructions: Dizziness (ED) Additional Instructions: Your cardiac monitoring has not shown any arrhythmia, head CT imaging is not showing any concerning changes within the brain or the vasculature. At this time, can resume normal activity at home. If you have further spells, your pacemaker may need interrogation in you may need further evaluation. Please seek medical evaluation if there are concerns. We cannot interrogate her pacemaker here but we will always be here for further evaluation if needed. Please package pick up your Entresto from the pharmacy. Activity Level: Activity as Tolerated Prescriptions: No Action silodosin 8 mg capsule 8 mg PO DAILY atorvastatin 20 mg tablet 20 mg metoprolol succinate 50 mg tablet extended release 24 hr 50 mg PO amlodipine 5 mg tablet 5 mg valsartan-hydrochlorothiazide 80-12.5 mg tablet 1 tab Patient Comments: TAKE 1 TABLET BY MOUTH EVERY DAY pantoprazole 40 mg tablet,delayed release (DR/EC) 40 mg PO simvastatin 20 mg tablet 20 mg Patient Comments: TAKE 1 TABLET BY MOUTH AT BEDTIME ipratropium bromide 21 mcg (0.03 %) spray,non-aerosol 2 spray INTRANASAL Xarelto 20 mg tablet 20 mg Follow Up/Referrals: Yael Hammonds DO [Primary Care Provider, Family Practice] Stand Al[facility]: [facility] Info Instructions
[2025-01-07 09:33] VITALS: O2SAT 95
--- NOTE | 2025-01-07 09:49 | CRLHL7_ITS ---
For Patients: As a result of the Century Cures Act, medical imaging exams and procedure reports are released immediately into your electronic medical record. You may view this report before your referring provider. If you have questions, please contact your health care provider. INDICATION: Dizziness TECHNIQUE: CT head without contrast. COMPARISON: None. FINDINGS: CSF spaces: Within normal limits for age. Brain parenchyma: The aviles-white differentiation is normal. No sign of mass, hemorrhage, or midline shift. Small low density within the deep white matter. Skull base and calvarium: Mild mucosal thickening paranasal sinuses. The visualized orbits are grossly unremarkable. No skull fractures. Right temporomandibular joint osteoarthritis. Atherosclerosis. IMPRESSION: 1. No intracranial bleed or mass effect. 2. Mild nonspecific white matter disease, likely microangiopathy. Please note that all CT scans at this facility use dose modulation, iterative reconstruction, and/or weight-based dosing when appropriate to reduce radiation dose to as low as reasonably achievable. Dictated by Doug Kwong MD @ 01/07/2025 10:36:02 AM (Electronically Signed)
[2025-01-07 09:57] LABS: Hematocrit 43.3 % (37.0-53.0); Hemoglobin* 14.6 gm/dL (13.5-17.5); Immature Granulocytes Abs Auto 0.01 K/uL (0.00-0.30); Immature Granulocytes Pct Auto 0.2 %; Mean Corpuscular HGB Conc 34 gm/dL (32-36); Mean Corpuscular Hemoglobin 29 pg (26-34); Mean Corpuscular Volume 87 fL (80-100); RDW Coefficient of Variation % 13.2 % (11.5-15.5); Red Blood Count 4.96 m/uL (4.30-5.90); White Blood Count* 5.33 K/uL (4.50-11.00)
[2025-01-07 10:02] LABS: Lymphocytes Absolute Auto 0.60 K/uL (0.90-2.90); Slide Review Reflex No
[2025-01-07 10:06] LABS: Troponin, Point-of-Care* 0.00 ng/ml (0.01-0.04)
[2025-01-07 10:20] LABS: Albumin* 3.8 g/dL (3.3-5.0); Chloride* 106 mmol/L (96-114); Potassium* 3.9 mmol/L (3.6-5.1); Sodium* 137 mmol/L (135-149)
[2025-01-07 10:23] LABS: Alanine Aminotransferase* 30 U/L (4-50); Alkaline Phosphatase* 103 U/L (40-150); Anion Gap 7 mEq/L (7-15); Aspartate Amino Transferase* 31 U/L (12-35); Bilirubin Total* 0.9 mg/dL (0.1-1.5); Blood Urea Nitrogen* 16 mg/dL (7-30); Calcium* 8.8 mg/dL (8.4-10.6); Carbon Dioxide* 24 mmol/L (20-32); Creatinine* 0.7 mg/dL (0.5-1.5); Est. Creatinine Clearance* 58.57; Estimated Glomerular Filt Rate 91 ml/min; Glucose* 150 mg/dL (60-115); Total Protein* 6.1 g/dL (6.0-8.3)
[2025-01-07 10:44] LABS: NT Pro B Type NatriureticPept* 1090 pg/mL (See Note)
--- NOTE | 2025-01-07 10:46 | CRLHL7_ITS ---
For Patients: As a result of the Cures Act, medical imaging exams and procedure reports are released immediately into your electronic medical record. You may view this report before your referring provider. If you have questions, please contact your health care provider. INDICATION: : DIZZINESS COMPARISON: Chest radiograph from June 06, 2024 TECHNIQUE: One view(s) of the chest FINDINGS: Three lead left chest wall ICD. The cardiomediastinal silhouette and pulmonary vasculature are unremarkable. There is no focal airspace consolidation, pleural effusion, or pneumothorax. No displaced fractures. IMPRESSION: No acute cardiopulmonary process. Dictated by Dave Ang MD @ 01/07/2025 12:05:15 PM (Electronically Signed)
[2025-01-07 11:30] VITALS: BP 167/91
--- NOTE | 2025-01-07 11:36 | CRLHL7_ITS ---
For Patients: As a result of the Century Cures Act, medical imaging exams and procedure reports are released immediately into your electronic medical record. You may view this report before your referring provider. If you have questions, please contact your health care provider. INDICATION: Dizziness. TECHNIQUE: CTA neck with contrast bolus tracking, 3D angiographic rendering using maximum intensity projection (MIP) and images permanently archived. FINDINGS: There is carotid atherosclerosis bilaterally. There is atherosclerotic plaque in the proximal right ICA resulting in a mild stenosis, less than 50% by NASCET. There is atherosclerotic plaque in the proximal left ICA resulting in a mild stenosis, less than 50% by NASCET. There is no significant vertebral artery stenosis or dissection. The soft tissues of the neck are within normal limits. The cervical spine is in normal alignment. Degenerative changes are noted in the cervical spine. IMPRESSION: Mild proximal right ICA stenosis, less than 50% by NASCET. Mild proximal left ICA stenosis, less than 50% by NASCET. Please note that all CT scans at this facility use dose modulation, iterative reconstruction, and/or weight-based dosing when appropriate to reduce radiation dose to as low as reasonably achievable. Dictated by Morales King MD @ 01/07/2025 4:36:02 PM (Electronically Signed)
--- NOTE | 2025-01-07 11:36 | CRLHL7_ITS ---
For Patients: As a result of the Century Cures Act, medical imaging exams and procedure reports are released immediately into your electronic medical record. You may view this report before your referring provider. If you have questions, please contact your health care provider. INDICATION: Dizziness. TECHNIQUE: CTA head with contrast bolus tracking, 3D angiographic rendering using maximum intensity projection (MIP) and images permanently archived. FINDINGS: There is scattered intracranial atherosclerotic disease. There is normal opacification of the intracranial vasculature. There is no large vessel occlusion. No aneurysm is identified. IMPRESSION: No acute intracranial abnormality at CTA. Please note that all CT scans at this facility use dose modulation, iterative reconstruction, and/or weight-based dosing when appropriate to reduce radiation dose to as low as reasonably achievable. Dictated by Morales King MD @ 01/07/2025 4:33:45 PM (Electronically Signed)
[2025-01-07 11:59] VITALS: PULSE 60; RESP 16; O2SAT 97
== END 2025-01-07 14:38 | disposition home or self-care (01) ==
PROVIDERS: Emergency Provider Family Medicine; PCP Family Medicine
DX: R42 Dizziness and giddiness (principal); Z95.0 Presence of cardiac pacemaker; Z79.899 Other long term (current) drug therapy; Z79.01 Long term (current) use of anticoagulants
CPT/HCPCS: 36415; 70450; 70496; 70498; 71045; 80053; 83735; 83880; 84484; 85025; 93005; 94761; 99284; 99285; Q9967

== ENCOUNTER 2025-01-19 08:54 | Outpatient (CLI) | payer MEDICARE, BC, SELFPAY | END 2025-01-19 08:55 | disposition home or self-care (01) | PROVIDERS: PCP Family Medicine; Visit Provider Internal Medicine | DX: R42 Dizziness and giddiness (principal); I95.9 Hypotension, unspecified | CPT/HCPCS: A0425; A0427 ==